=== PATIENT | male | born 1940 | race Two or more races ===

== ENCOUNTER 2019-08-22 00:03 | Inpatient (IN) | payer MEDICARE, OTHER ==
[~2019-08-22] VITALS: Ht 172.7 cm; Wt 76.2 kg
[2019-08-22] VITALS (17 sets, daily range): BP systolic 115–153; BP diastolic 53–71
--- NOTE | 2019-08-22 00:03 | NUR ---
PT ROOSEVELTPA FROM [facility] DUE TO HGB 5.7. PT OPENS EYES SPONTANEOUSLY, NONVERBAL. ARRIVED TO [facility] ER WITH TWO IV SITES: L HAND 22G AND R AC 22G. VENT/TRACH DEPENDENT. VENT SETTINGS: TIDAL VOLUME 600, PEEP 5, 40%, RATE 16. NOTED TACHYCARDIA, MD AWARE. PT PLACED ON CONTINUOUS ASSOCIATE DATA SCIENTIST, WILL CONTINUE TO MONITOR.
--- NOTE | 2019-08-22 00:25 | NUR ---
IV INITIATED L FOREARM 18G, LABS DRAWN FROM SITE. APPLICATION SECURITY DEVELOPER AT BEDSIDE FOR COLLECTION. IV INTACT AND PATENT, PLACED ON SALINE LOCK
[2019-08-22 00:41] LABS: BASOPHILS # (AUTO) 0.1 /CMM (0.0-0.2); BASOPHILS % (AUTO) 0.5 % (0.0-2.0); EOSINOPHILS % (AUTO) 3.9 % (0.0-6.0); HEMATOCRIT 21 % (39-51); LYMPHOCYTES # (AUTO) 3.4 /CMM (0.8-4.8); LYMPHOCYTES % (AUTO) 19.9 % (20.0-44.0); MEAN CORPUSCULAR HGB CONC 32 g/dl (31.0-36.0); MEAN CORPUSCULAR VOLUME 86 fL (80-96); MONOCYTES # (AUTO) 1.2 /CMM (0.1-1.30); MONOCYTES % (AUTO) 7.1 % (2.0-12.0); NEUTROPHILS # (AUTO) 11.6 /CMM (1.8-8.9); NEUTROPHILS % (AUTO) 68.6 % (43.0-81.0); PLATELET COUNT (AUTO) 773 /CMM (150-450); RED BLOOD CELL COUNT(AUTO) 2.41 MIL/uL (4.5-6.0); WHITE BLOOD COUNT (AUTO) 16.8 K/uL (4.3-11.0)
[2019-08-22 00:45] LABS: HEMOGLOBIN 6.6 g/dL (13.5-17.5)
[2019-08-22 00:57] LABS: ALANINE AMINOTRANSFERASE 11 U/L (12-78); ALKALINE PHOSPHATASE 162 U/L (46-116); ASPARTATE AMINOTRANSFERASE 24 U/L (15-37); BILIRUBIN,DIRECT 0.1 mg/dL (0.0-0.2); BILIRUBIN,TOTAL 0.2 mg/dL (0.2-1.0); CALCIUM, SERUM 8.4 mg/dL (8.5-10.1); CARBON DIOXIDE 25 mmol/L (21-32); CHLORIDE 108 mmol/L (98-107); CREATININE 0.5 mg/dL (0.6-1.3); SODIUM SERUM 140 mmol/L (136-145); TOTAL PROTEIN, SERUM 6.7 g/dL (6.4-8.2); UREA NITROGEN, BLOOD 21 mg/dL (7-18)
[2019-08-22 00:59] LABS: ALBUMIN 1.3 g/dL (3.4-5.0); GLUCOSE 46 mg/dL (74-106)
[2019-08-22] MEDS ORDERED: DEXTROSE 50%-WATER 50 ML DISP.SYRIN ONE ×2 (00:59→06:20)
[2019-08-22] MEDS ORDERED: DEXTROSE 50%-WATER 50 ML DISP.SYRIN IVP ONE ×2 (01:00→06:30)
--- NOTE | 2019-08-22 01:13 | NUR ---
URINE COLLECTED AND SENT TO LAB
--- NOTE | 2019-08-22 01:21 | NUR ---
BED ASSIGNMENT 107
[2019-08-22 01:22] LABS: APPEARANCE,URINE Clear (CLEAR); BILIRUBIN,URINE Negative (NEGATIVE); BLOOD, URINE Moderate Ery/uL (NEGATIVE); COLOR,URINE Yellow (YELLOW); KETONES,URINE Negative (NEGATIVE); LEUKOCYTE ESTERASE ,URINE Negative (NEGATIVE); NITRITE, URINE Negative (NEGATIVE); PH,URINE 7.5 (5.0-8.0); PROTEIN,URINE 30 mg/dl (NEGATIVE); UGLUCOSE Negative (NEGATIVE); UROBILINOGEN,URINE 0.2 EU/dL (0.2)
[2019-08-22] MEDS ORDERED: FAMO-131 GT (01:26)
[2019-08-22] MEDS ORDERED: DOCU-141 GT (01:26)
[2019-08-22] MEDS ORDERED: INSU100V10 SQ (01:26)
[2019-08-22] MEDS ORDERED: BISA-79 GT (01:26)
[2019-08-22] MEDS ORDERED: ATOR80TA GT (01:26)
[2019-08-22] MEDS ORDERED: AMLO10TA7 GT (01:26)
[2019-08-22] MEDS ORDERED: CLON0.1T GT (01:26)
[2019-08-22] MEDS ORDERED: INSU100V11 SQ (01:26)
[2019-08-22] MEDS ORDERED: MAGN400O21 GT (01:26)
[2019-08-22] MEDS ORDERED: IPRA12.9 IH (01:26)
[2019-08-22 01:28] LABS: EOSINOPHILS % (MANUAL) 5 % (0-4); LYMPHOCYTES % (MANUAL) 15 % (16-48); MONOCYTES % (MANUAL) 5 % (0-11.0); NEUTROPHILS % (MANUAL) 75 (42-76)
[2019-08-22] MEDS ORDERED: ONDANSETRON HCL/PF 4 MG/2 ML VIAL IVP PRN (01:30)
[2019-08-22] MEDS ORDERED: TEMAZEPAM 15 MG CAPSULE PO PRN (01:30)
--- NOTE | 2019-08-22 01:32 | NUR ---
REPORT GIVEN TO [facility] FOR LEONCIO
--- NOTE | 2019-08-22 02:00 | NUR ---
ASSOCIATE JUVENILE COURT JUDGE ADMISSION NOTES ADMITTED MR RITCHIE FROM ER WITH CHIEF COMPLAINT OF LOW HGB, DX OF SEVERE ANEMIA POSSIBLE BLEED, PATIENT CAME FROM [facility], PT IS OBTUNDED AWAKE, PT IS ON TRACH PORTEX ON VENT WITH CURRENT SETTING OF AC 16 TV 600 FIO2 40% PEEP +5, HOOK TO TELE MONITOR WITH CURRENT READING SR 100, PT ALSO WITH GTUBE IN PLACE PATENT, HAVE IV LINE ON LEFT HAND #18 AND MALATHI # 22, PT ALSO HAVE LOZADA PATENT YELLOW COLOR URINE, PT HAVE MULTIPLE UNSTAGEABLE WOUND ISSUE, TO BE EVALUATE BY WOUND CARE NURSE, VITAL SIGN CHECK, 115/64 98.4, 108HR, 22 RR, O2 SAT 100% BLOOD SUGAR 72, WITH ORDER FOR 2 UNITS PRBC, PLACED COMFORTABLE AND SAFELY ON BED, DRY AND CLEAN, SIDERAILS UP X3 CALL LIGHTR WITHIN REACH SUCTIONING DONE, WILL CONT. TO MONITOR
--- NOTE | 2019-08-22 02:00 | NUR ---
PT TRANSFERRED PER ACLS PROTOCOL WITH RT AT BEDSIDE
[2019-08-22 02:14] LABS: BACTERIA,URINE Few /HPF (None Seen); RBC,URINE 51-80 /HPF (0-2); SQUAMOUS EPITHELIAL CELL,UR Rare /HPF (None Seen); WBC,URINE 0-2 /HPF (0-3)
[2019-08-22] MEDS: IV D5/ 0.9% NACL 1,000 ML IV PRN (02:48)
[2019-08-22] MEDS ORDERED: CEFTRIAXONE 1 G VIAL ONE (04:24)
[2019-08-22] MEDS ORDERED: AZITHROMYCIN 500 MG in IV D5W 250 ML IV SCH (04:30)
[2019-08-22] MEDS ORDERED: CEFTRIAXONE 1GM BAG (ER ONLY) 1 GM/50 ML PIGGYBACK IV ONE (04:30)
--- NOTE | 2019-08-22 04:30 | NUR ---
UNDER BASTER NOTES ROCEPHIN ORDER CANNOT START DUE TO PATIENT HAS AN ONGOING BLOOD TRANSFUSION
[2019-08-22] MEDS: BLOOD SUGAR DIAGNOSTIC 1 EACH STRIP IN SCH ×3 (06:16→18:19)
--- NOTE | 2019-08-22 06:38 | NUR ---
ELEMENTARY MATH TUTOR NOTES NOTED BLOOD SUGAR OF 51, AZUCENA HERNANDEZ COFFEE SHOP MANAGER INFORMED WITH ORDER FOR D50 INJ, GIVEN THIS TIME WILL CONT TO MONITOR PT
--- NOTE | 2019-08-22 07:00 | NUR ---
SOLAR MANAGER NOTES BLOOD SUGAR RECHECKED WITH RESULT OF 88 WILL CONT TO MONITOR THE PT
--- NOTE | 2019-08-22 07:31 | NUR ---
CABINET AND TRIM INSTALLER CLOSING NOTES PT SLEEPING NO SIGN AND SYMPTOMS OF RESPIRATORY DISTRESS, STILL ON VENT WITH SETTING PER MD, TELE MONITOR CURRENT READING SINUS TACH 110, WITH IVF OF D5 NS RUNNING @ 75ML/ HR, 1ST BAG OF PRBC COMPLETED, ROCEPHIN WAS INFUSED, SAFETY MEASURE MAINTAINED BED ON LOWEST POSITION, CALL LIGHT WITHIN REACH, SIDE RAILS UP X3, ALL NEED ATTENDED, ENDORSE TO AM SHIFT ABOUT THE AZITHROMYCIN NOT GIVEN YET DUE TO BLOOD TRANSFUSION STILL ONGOING THAT TIME, 2ND BAG OF PRBC ENDORSE TO BE TRANSFUSED BY AM SHIFT
[2019-08-22] MEDS ORDERED: IPRA0.2S9 IH ×2 (09:16)
[2019-08-22] MEDS ORDERED: TRAM50TA2 GT (09:16)
[2019-08-22] MEDS ORDERED: EPOE3000 SQ (09:16)
[2019-08-22] MEDS ORDERED: ACET-2605 GT (09:16)
[2019-08-22] MEDS ORDERED: NUT.250L18 GT (09:16)
[2019-08-22] MEDS ORDERED: CHLO473M5 MM (09:16)
[2019-08-22] MEDS ORDERED: PIPE3.376 IV (09:16)
[2019-08-22] MEDS ORDERED: NA P133E RC (09:16)
[2019-08-22] MEDS ORDERED: FERR300L GT (09:16)
[2019-08-22] MEDS ORDERED: ACET-868 GT (09:16)
[2019-08-22] MEDS ORDERED: ASCO-352 GT (09:16)
[2019-08-22] MEDS ORDERED: MULT-447 GT (09:16)
[2019-08-22] MEDS ORDERED: AMIN30LI2 GT (09:16)
[2019-08-22] MEDS ORDERED: NUTR1PAC14 GT (09:16)
[2019-08-22] MEDS ORDERED: ONDA4TAB5 GT (09:16)
[2019-08-22] MEDS ORDERED: BISA10SU11 RC (09:16)
[2019-08-22] MEDS: PANTOPRAZOLE 40 MG VIAL IV SCH ×2 (09:20→21:02)
--- NOTE | 2019-08-22 12:05 | NUR ---
PRODUCT SUPPORT CONSULTANT NOTES PATIENT TOLERATED BLOOD TRANSFUSION WITH NO FEVER AND VITALS WNL.
--- NOTE | 2019-08-22 12:58 | NUR ---
REAL ESTATE FIRM MANAGER NOTES ZITHROMAX NOT ADMINISTRATED BY PREVIOUS SHIFT DUE TO BLOOD TRANSFUSION. CALLED PHARMACY AND REPORTED AND PHARMACY INFORMED THAT THE DR HAS TO PUT THE ORDER IN. INFORMED DR STODDARD.
--- NOTE | 2019-08-22 16:10 | NUR ---
DARK ROOM ATTENDANT NOTES CALLED [facility] FOR [facility] FOLLOW UP, THEY WILL SEND THE BED.
--- NOTE | 2019-08-22 18:22 | NUR ---
FURNACE TAPPER NOTES PATIENT ACUCHECK PERFORMED. BLOOD GLUCOSE LEVEL 148 MG/DL NO SLIDING SCALE OR INSULIN ORDER YET, INFORMED DR LEIJA ABOUT THE MED RECON AND SLIDING SCALE ORDERS.
--- NOTE | 2019-08-22 18:27 | NUR ---
MEAT SUPERVISOR NOTES PER MD STODDARD , ORDERED MILD SLIDING SCALE FOR PATIENT. NO MEDICATION NEEDED UNTIL GI SPECIALIST SEES THE PATIENT.
[2019-08-22] MEDS ORDERED: DEXTROSE 50%-WATER 50 ML DISP.SYRIN IV PRN (18:30)
--- NOTE | 2019-08-22 19:10 | NUR ---
HOME CARE PHYSICAL THERAPIST NOTES PATIENT IN BED A/OX 1 . NPO ON WOUND ISOLATION. NO SOB OR PAIN NOTED AT THIS TIME. ALL NEED ATTENDED. ENDORCED TO COMMERCIAL SINGER NURSE FOR LEONCIO.
--- NOTE | 2019-08-22 19:30 | NUR ---
RN Notes Patient asleep, HOB elevated, on mechanical vent with settings in place, no signs of distress and discomfort noted. Patient noted contracted on both upper and lower extremity. GT intact and clamped. Right upper arm midline intact. Peripheral IV on left arm intact with ongoing IV fluid infusing well. Wound dressing dry and intact, turn and reposition patient. On contact isolation. Will continue to monitor.
[2019-08-23] VITALS: BP 156/71
[2019-08-23] MEDS: INSULIN REGULAR, HUMAN 100 UNIT/ML 3 ML VIAL SQ PRN ×4 (00:02→17:26)
[2019-08-23] MEDS: IV D5/ 0.9% NACL 1,000 ML IV PRN ×2 (02:26→19:54)
[2019-08-23 04:00] VITALS: BP 161/68
[2019-08-23] MEDS: BLOOD SUGAR DIAGNOSTIC 1 EACH STRIP IN SCH ×4 (05:54→17:29)
[2019-08-23 06:21] LABS: BASOPHILS # (AUTO) 0.1 /CMM (0.0-0.2); BASOPHILS % (AUTO) 0.4 % (0.0-2.0); HEMATOCRIT 30 % (39-51); HEMOGLOBIN 10.1 g/dL (13.5-17.5); LYMPHOCYTES # (AUTO) 1.7 /CMM (0.8-4.8); LYMPHOCYTES % (AUTO) 11.4 % (20.0-44.0); MEAN CORPUSCULAR HGB CONC 33 g/dl (31.0-36.0); MEAN CORPUSCULAR VOLUME 87 fL (80-96); MONOCYTES % (AUTO) 6.6 % (2.0-12.0); NEUTROPHILS # (AUTO) 11.7 /CMM (1.8-8.9); NEUTROPHILS % (AUTO) 80.6 % (43.0-81.0); PLATELET COUNT (AUTO) 613 /CMM (150-450); RED BLOOD CELL COUNT(AUTO) 3.48 MIL/uL (4.5-6.0); WHITE BLOOD COUNT (AUTO) 14.5 K/uL (4.3-11.0)
[2019-08-23 06:49] LABS: CALCIUM, SERUM 8.5 mg/dL (8.5-10.1); CARBON DIOXIDE 22 mmol/L (21-32); CHLORIDE 108 mmol/L (98-107); CREATININE 0.5 mg/dL (0.6-1.3); GLUCOSE 166 mg/dL (74-106); MAGNESIUM 1.9 mg/dL (1.8-2.4); PHOSPHORUS 2.3 mg/dL (2.5-4.9); POTASSIUM 4.2 mmol/L (3.5-5.1); SODIUM SERUM 141 mmol/L (136-145); UREA NITROGEN, BLOOD 13 mg/dL (7-18)
[2019-08-23 06:55] LABS: CHOLESTEROL 80 mg/dL (<200); HDL CHOLESTEROL 40 mg/dL (40-60); LDL 35 mg/dL (0-99); TRIGLYCERIDES 54 mg/dL (30-150)
--- NOTE | 2019-08-23 07:25 | NUR ---
TELE/RN OPENING NOTES RECEIVED PATIENT IN BED SLEEPING COMFORTABLY. PATIENT ABLE TO RESPOND TO TACTILE STIMULI. NO FACIAL GRIMACING. NO ACUTE DISTRESS AT THIS TIME. RESPIRATION EVEN AND UNLABORED. SKIN IS DRY WARM TO TOUCH. IV ACCESS INTACT AND PATENT. FLUSHING WELL. NO S/S OF INFECTION OR INFILTRATION. HOB ELEVATED AT ALL TIMES. ALL NEEDS ANTICIPATED. CALL LIGHT WITHIN REACHED. BED LOCKED AND IN LOWEST POSITION. SAFETY MAINTAINED. REPOSITIONED Q2H. WILL CONTINUE TO MONITOR CLOSELY.
--- NOTE | 2019-08-23 07:32 | NUR ---
RN Notes Patient stable overnight, vital signs stable, afebrile. Tele monitor reads Sinus Tach with heart rate of 109. Wound care done. Kept clean and dry. Turned and repositioned per protocol. Endorsed accordingly.
[2019-08-23 08:00] VITALS: BP 152/70
[2019-08-23] MEDS: PANTOPRAZOLE 40 MG VIAL IV SCH ×2 (08:20→21:26)
--- NOTE | 2019-08-23 11:27 | NUR ---
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 RECOMMEND SURGICAL CONSULT AND DPM CONSULT. DR LIZZ LIM NOTIFIED OF SURGICAL CONSULT AND DR DAMON NOTIFIED OF DPM CONSULT REQUEST. PT ON FIRST STEP [facility] LOW AIRLOSS MATTRESS. RECOMMENDATIONS MADE FOR SKIN PROTECTION AND WOUND CARE. DISCUSSED WITH NURSING STAFF. DEFER TO DPM FOR LOWER EXTREMITIES. WILL SEE PRN. HERNANDEZ IN AGREEMENT WITH PLAN OF CARE. Addendum: 08/23/19 at 1129 by LEONIDES SALDIVAR WNDNU Amended: Links added.
[2019-08-23] MEDS ORDERED: Z GUARD REMEDY 2 OZ OINT TP PRN (11:30)
[2019-08-23 12:00] VITALS: BP 149/69
[2019-08-23] MEDS: DAKINS QUARTER STRENGTH (0.125%) 480 ML BOTTLE TOP SCH (12:28)
[2019-08-23] MEDS: Z GUARD REMEDY 2 OZ OINT TP SCH (12:28)
--- NOTE | 2019-08-23 13:44 | NUR ---
TELE/RN NOTES PATIENT WAS SEEN AND EVALUATED BY SAWYER CORK SLABS. SERIAL DEBRIDEMENT WAS DONE ON BILATERAL HEELS. PATIENT TOLERATED THE PROCEDURE WELL. WILL CONTINUE TO MONITOR CLOSELY.
[2019-08-23 16:00] VITALS: BP 132/73
--- NOTE | 2019-08-23 18:44 | NUR ---
TELE/RN NOTES RECEIVED A CALL FROM DR. TUTTLE FOR THE EGD PROCEDURE FOR TOMORROW NOON. PATIENT TO BE NPO @ MIDNIGHT. CONSENTS ARE PREPARED IN THE CHART. WILL CONTINUE TO MONITOR CLOSELY.
--- NOTE | 2019-08-23 19:22 | NUR ---
TELE/RN NOTES PATIENT CONTINUES TO REMAIN IN STABLE CONDITION THROUGHOUT THE SHIFT. PROVIDED COMFORT AND SAFETY. NO PAIN OR ACUTE DISTRESS AT THIS TIME. RESPIRATION EVEN AND UNLABORED. SKIN IS DRY WARM TO TOUCH. HOB ELEVATED AT ALL TIMES. WOUND TREATMENT DONE. ENDORSED TO PM NURSE ABOUT THE EGD PROCEDURE TOMORROW NOON. NPO AT MIDNIGHT. ALL NEEDS ANTICIPATED. CALL LIGHT WITHIN REACHED. BED LOCKED AND IN LOWEST POSITION. SAFETY MAINTAINED. WILL CONTINUE TO MONITOR CLOSELY. ENDORSED TO PM NURSE FOR LEONCIO.
[2019-08-23 20:00] VITALS: BP 163/67
[2019-08-24] VITALS: BP 182/73
[2019-08-24] MEDS: INSULIN REGULAR, HUMAN 100 UNIT/ML 3 ML VIAL SQ PRN ×4 (01:52→23:09)
[2019-08-24 04:00] VITALS: BP 158/69
[2019-08-24] MEDS: BLOOD SUGAR DIAGNOSTIC 1 EACH STRIP IN SCH ×4 (06:02→17:39)
--- NOTE | 2019-08-24 06:02 | NUR ---
RN NOTES: -PATIENT WAS TURN OVER BY GIANCARLO/RN AT 0500.OBSTUNDED, ON TRAVEL COTA ON ST WITH OCCASIONAL PVC PVJD=561, SPO2 REMAIN 99%, TRACH INTACT, ON VENTILATOR FI02 40%, LOZADA CATH DRAINING WELL INTO DARK YELLOWISHCOLORED URINE, ADEQUATE OUTPUT, IVF ONGOIN OF D5NS AT 75ML/HR MALATHI MIDLINE, PATENT, KEPT NPO FOR EGD AT NOON TIME. -MORNING CARE DONE, SPONGE BATH RENDERED, CLEAN AND CHANGE, DRESSING DONE ON SACRAL AND BUTTOCKS WOUND, OFF LOADING DONE, TURN AND REPOSITIONED.
--- NOTE | 2019-08-24 06:15 | NUR ---
RN NOTES: BLOOD SUGRA CHECK-103, NO INSULIN PER SCALE WILL CONTINUE TO MONITOR FOR SIGN OF HYPER/HYPOGLYCEMIA.
[2019-08-24 06:55] LABS: BASOPHILS % (AUTO) 0.3 % (0.0-2.0); EOSINOPHILS % (AUTO) 1.7 % (0.0-6.0); HEMATOCRIT 28 % (39-51); HEMOGLOBIN 9.1 g/dL (13.5-17.5); LYMPHOCYTES # (AUTO) 1.6 /CMM (0.8-4.8); LYMPHOCYTES % (AUTO) 12.9 % (20.0-44.0); MEAN CORPUSCULAR HGB CONC 32 g/dl (31.0-36.0); MEAN CORPUSCULAR VOLUME 89 fL (80-96); MONOCYTES # (AUTO) 0.8 /CMM (0.1-1.30); MONOCYTES % (AUTO) 6.5 % (2.0-12.0); NEUTROPHILS # (AUTO) 9.7 /CMM (1.8-8.9); NEUTROPHILS % (AUTO) 78.6 % (43.0-81.0); PLATELET COUNT (AUTO) 559 /CMM (150-450); RED BLOOD CELL COUNT(AUTO) 3.15 MIL/uL (4.5-6.0); WHITE BLOOD COUNT (AUTO) 12.3 K/uL (4.3-11.0)
[2019-08-24 07:12] LABS: CALCIUM, SERUM 8.1 mg/dL (8.5-10.1); CARBON DIOXIDE 24 mmol/L (21-32); CHLORIDE 112 mmol/L (98-107); CREATININE 0.3 mg/dL (0.6-1.3); GLUCOSE 118 mg/dL (74-106); POTASSIUM 3.6 mmol/L (3.5-5.1); SODIUM SERUM 144 mmol/L (136-145); UREA NITROGEN, BLOOD 8 mg/dL (7-18)
--- NOTE | 2019-08-24 07:18 | NUR ---
RN NOTES: NPO, FALL,SAFETY AND ASPIRATION PRECAUTION OBSERVED, NO SIGN OF RESPIRATORY DISTRESS NOTED, ENDORSED FOR CONTINUITY OF CARE.
--- NOTE | 2019-08-24 07:30 | NUR ---
TELE/RN NOTES OPENING NOTES RECEIVED PATIENT IN BED SLEEPING COMFORTABLY. PATIENT ABLE TO RESPOND TO TACTILE STIMULI. NO PAIN OR ACUTE DISTRESS AT THIS TIME. RESPIRATION EVEN AND UNLABORED. SKIN IS DRY WARM TO TOUCH. HOB ELEVATED AT ALL TIMES. IV ACCESS INTACT AND PATENT. FLUSHING WELL. F/C INTACT WELL DRAINING YELLOW URINE. ALL NEEDS ANTICIPATED. CALL LIGHT WITHIN REACHED. BED LOCKED AND IN LOWEST POSITION. SAFETY MAINTAINED. WILL CONTINUE TO MONITOR CLOSELY.
[2019-08-24 08:00] VITALS: BP 148/69
[2019-08-24] MEDS: DAKINS QUARTER STRENGTH (0.125%) 480 ML BOTTLE TOP SCH (08:38)
[2019-08-24] MEDS: Z GUARD REMEDY 2 OZ OINT TP SCH (08:38)
[2019-08-24] MEDS: SILVER SULFADIAZINE CREAM 25 GM TUBE TP SCH (08:38)
[2019-08-24] MEDS: PANTOPRAZOLE 40 MG VIAL IV SCH ×2 (08:39→20:16)
[2019-08-24] MEDS: IV D5/ 0.9% NACL 1,000 ML IV PRN ×2 (08:50→21:26)
[2019-08-24] MEDS ORDERED: SILVER SULFADIAZINE CREAM 400 GM JAR TP SCH (09:00)
[2019-08-24 12:00] VITALS: BP 140/61
[2019-08-24 16:00] VITALS: BP_SYST 138; BP_SYST 140; BP_DIAS 61; BP_DIAS 65
--- NOTE | 2019-08-24 17:46 | NUR ---
RT END OF THE SHIFT REPORT, PT. 79 Y OLD MALE REC. 0700 AM AWAKE, BUT NOT VERBAL TRACH'D PORTEX # 7 ON VENT WITH NOTES SETTINGS, ALARMS ARE SET AND FUNCTIONAL. EQUAL CHEST RISE NOTED AND BILATERALLY RHONCHI B/S AND SUX'D FOR SMALL AMT OF WHITE SECRETIONS, NO CHANGES T/O DAY AND PT. REMAIN STABLE. DENTAL OFFICE RECEPTIONIST DONE, TRACH CARE DONE, HME CHANGED. VENT PLUGGED INTO RED OUT LET & AMBU BAG AT THE BEDSIDE. REPORT WILL PASS TO PM SHIFT. Addendum: 08/24/19 at 1758 by DIANE THOMPSON RT Amended: Links added.
--- NOTE | 2019-08-24 19:10 | NUR ---
RN OPENING NOTE RECEIVED PATIENT IN BED RESTING WITH HOB ELEVATED. OBTUNDED. ON VENT. BREATHING EVEN AND NON LABORED. NO SOB NOTED AT THIS TIME. ON D5 NS IV @ 75 MLS/HR. GTF CLAMPED. ON LOZADA CATHETER. URINE IS CLEAR AND JEFFRY IN COLOR. IN NO APPARENT DISTRESS NOTED AT THIS TIME. WILL CONTINUE TO MONITOR.
--- NOTE | 2019-08-24 19:27 | NUR ---
TELE/RN CLOSING NOTES PATIENT CONTINUES TO REMAIN IN STABLE CONDITION THROUGHOUT THE SHIFT. PROVIDED COMFORT AND SAFETY THROUGHOUT THE SHIFT. HOB ELEVATED AT ALL TIMES. IV ACCESS INTACT AND PATENT. FLUSHING WELL. F/C INTACT WELL DRAINING YELLOW URINE. ALL NEEDS ANTICIPATED. CALL LIGHT WITHIN REACHED. BED LOCKED AND IN LOWEST POSITION. SAFETY MAINTAINED. WILL CONTINUE TO MONITOR CLOSELY. ENDORSED TO PM NURSE FOR LEONCIO.
[2019-08-24 20:00] VITALS: BP 137/72
[2019-08-25] VITALS: BP 145/73
[2019-08-25] MEDS: BLOOD SUGAR DIAGNOSTIC 1 EACH STRIP IN SCH ×5 (00:49→23:53)
[2019-08-25 04:00] VITALS: BP 166/74
[2019-08-25] MEDS: INSULIN REGULAR, HUMAN 100 UNIT/ML 3 ML VIAL SQ PRN ×4 (05:51→23:51)
[2019-08-25 06:22] LABS: BASOPHILS % (AUTO) 0.3 % (0.0-2.0); EOSINOPHILS % (AUTO) 0.9 % (0.0-6.0); HEMATOCRIT 27 % (39-51); HEMOGLOBIN 8.7 g/dL (13.5-17.5); LYMPHOCYTES # (AUTO) 1.7 /CMM (0.8-4.8); MEAN CORPUSCULAR HGB CONC 33 g/dl (31.0-36.0); MEAN CORPUSCULAR VOLUME 87 fL (80-96); MONOCYTES # (AUTO) 0.8 /CMM (0.1-1.30); MONOCYTES % (AUTO) 5.9 % (2.0-12.0); NEUTROPHILS # (AUTO) 11.6 /CMM (1.8-8.9); NEUTROPHILS % (AUTO) 80.9 % (43.0-81.0); PLATELET COUNT (AUTO) 550 /CMM (150-450); RED BLOOD CELL COUNT(AUTO) 3.07 MIL/uL (4.5-6.0); WHITE BLOOD COUNT (AUTO) 14.3 K/uL (4.3-11.0)
[2019-08-25 06:33] LABS: CALCIUM, SERUM 7.7 mg/dL (8.5-10.1); CARBON DIOXIDE 22 mmol/L (21-32); CHLORIDE 112 mmol/L (98-107); CREATININE 0.3 mg/dL (0.6-1.3); GLUCOSE 163 mg/dL (74-106); MAGNESIUM 1.4 mg/dL (1.8-2.4); PHOSPHORUS 1.9 mg/dL (2.5-4.9); POTASSIUM 3.1 mmol/L (3.5-5.1); SODIUM SERUM 146 mmol/L (136-145); UREA NITROGEN, BLOOD 7 mg/dL (7-18)
--- NOTE | 2019-08-25 06:44 | NUR ---
RN CLOSING NOTE PATIENT IS IN BED RESTING WITH HOB ELEVATED. OBTUNDED. ON VENT. BREATHING EVEN AND NON LABORED. NO SOB NOTED AT THIS TIME. ON D5 NS @ 75 MLS/HR AND TOLERATED WELL. IV SITES KEPT CLEAN, DRY, AND PATENT. PATIENT WAS KEPT NPO. GTF CLAMPED. WOUND TREATMENTS DONE ORDERED. ALL DUE MEDS GIVEN AND TOLERATED WELL. IN NO APPARENT DISTRESS NOTED AT THIS TIME. BED IS LOWERED TO LOW POSITION FOR SAFETY. PATIENT IS KEPT CLEAN, DRY, AND COMFORTABLE. CALL LIGHT IS WITHIN REACH. WILL ENDORSE TO AM SHIFT RN FOR CONTINUATION OF CARE.
--- NOTE | 2019-08-25 07:30 | NUR ---
MONITORING TECH AM NOTES RECEIVED PATIENT IN BED. OPENS EYES, OBTUNDED. WITH PORTEX 7 TRACH TO MECHANICAL VENT WITH SETTINGS ORDERED, TOLERATING WELL. NO SOB AND ACUTE DISTRESS NOTED. SATURATING 98%. SINUS TACH HR 105. NO SIGNS OF PAIN OR DISCOMFORT, WITH D5 NS AT 75 ML/HR TO MALATHI MIDLINE, SITE CLEAR, ALSO WITH LFA G 18 AND LEFT WRIST G 22 IV ACCESS. BOTH FLUSHES WELL, BOTH SITES CLEAR. LOZADA CATH IN PLACE.DRAINING JEFFRY COLORED URINE, GTUBE CLAMPED AT THIS TIME. FOR SCHEDULED EGD TODAY. SEE NURSING FLOWSHEET FOR SKIN ISSUES. WILL PERFORM PRESCRIBED WOUND TREATMENT IN A WHILE. WILL TURN AND REPOSITION Q [address]ETY ME[address]URES IN PLACE; BED IS IN LOCKED AND LOW POSITION, HOB ELEVATED. CALL LIGHT WITHIN REACH, SIDE RAILS UP X2.WILL CONT TO MONITOR PT.
[2019-08-25 08:00] VITALS: BP 116/55
[2019-08-25] MEDS: PANTOPRAZOLE 40 MG VIAL IV SCH ×2 (08:58→21:24)
[2019-08-25] MEDS: Z GUARD REMEDY 2 OZ OINT TP SCH (08:58)
[2019-08-25] MEDS: DAKINS QUARTER STRENGTH (0.125%) 480 ML BOTTLE TOP SCH (09:01)
[2019-08-25] MEDS: SILVER SULFADIAZINE CREAM 25 GM TUBE TP SCH (09:02)
--- NOTE | 2019-08-25 09:30 | NUR ---
RN NOTES DUE MEDS GIVEN
[2019-08-25] MEDS: POTASSIUM CL. PREMIX PERIPHER. 50 ML IV SCH ×4 (10:11→13:51)
[2019-08-25] MEDS: Magnesium 1GM/D5W 100ML PREMIX 100 ML IV SCH ×4 (10:11→13:51)
[2019-08-25] MEDS: IV D5/ 0.9% NACL 1,000 ML IV PRN (10:17)
--- NOTE | 2019-08-25 10:32 | NUR ---
TRANSPLANT REGISTERED NURSE NOTES DR. TUTTLE AND OR STAFF AT BEDSIDE FOR SCHEDULED EGD
[2019-08-25] MEDS ORDERED: NEUTRA PHOS 1 POWD.PACKET PO ONE (11:00)
--- NOTE | 2019-08-25 11:12 | NUR ---
RN NOTES S/P EGD WITH BIOPSY ORDER TO RESUME TUBE FEEDING PER DR. TUTTLE.
[2019-08-25 12:00] VITALS: BP 133/93
[2019-08-25] MEDS: GLUCERNA 1.2 1,000 ML BOTTLE GT PRN (12:39)
--- NOTE | 2019-08-25 14:15 | NUR ---
RN NOTES DR. LIZZ ALEX NOTIFIED PATIENT WITH FEVER 101.5 IF STILL OK FOR DISCHARGE, PER HIM ITS OKAY DR. BILLS AT BEDSIDE, STAT CXR ORDERED. PM CARE DONE AND PHOTOS OF SKIN ISSUES TAKEN. PRESCRIBED WOUND TREATMENT DONE. PATIENT GIVEN ACETAMINOPHEN RECTAL SUPPOSITORY.
[2019-08-25] MEDS: ACETAMINOPHEN 650 MG/SUPP.RECT RC PRN (15:14)
[2019-08-25 16:00] VITALS: BP 151/70
[2019-08-25] MEDS ORDERED: MEROPENEM 500 MG in IV NS 0.9% 50 ML IV ONE (18:00)
[2019-08-25] MEDS ORDERED: FEE PK DOSING 1 MIN EA MC ONE (18:02)
--- NOTE | 2019-08-25 18:06 | NUR ---
RT END OF THE SHIFT REPORT, PT. 79 Y OLD MALE REC. 0700 AM AWAKE, BUT NOT VERBAL TRACH PORTEX # 7 ON VENT WITH NOTES SETTINGS, ALARMS ARE SET AND FUNCTIONAL. EQUAL CHEST RISE NOTED AND BILATERALLY RHONCHI B/S AND SUX'D FOR SMALL AMT OF WHITE SECRETIONS, NO CHANGES T/O DAY AND PT. REMAIN STABLE. EXTRA TRACH AT THE BEDSIDE. EDUCATIONAL DIAGNOSTICIAN DONE, TRACH CARE DONE, HME CHANGED. VENT PLUGGED INTO RED OUT LET & AMBU BAG AT THE BEDSIDE. REPORT WILL PASS TO PM SHIFT. Addendum: 08/25/19 at 1808 by DIANE THOMPSON RT Amended: Links added.
[2019-08-25] MEDS: VANCOMYCIN 1 GM in IV D5W 250ml IV SCH (18:17)
--- NOTE | 2019-08-25 18:37 | NUR ---
ELECTRIC MOTOR TESTER CLOSING NOTES PATIENT IN BED. OPENS EYES, OBTUNDED. WITH PORTEX 7 TRACH TO MECHANICAL VENT WITH SETTINGS ORDERED, TOLERATING WELL. NO SOB AND ACUTE DISTRESS NOTED. SATURATING 98-100%. SINUS TACH HR 100s. NO SIGNS OF PAIN OR DISCOMFORT, WITH D5 NS AT 75 ML/HR TO MALATHI MIDLINE, SITE CLEAR, ALSO WITH LFA G 18 AND LEFT WRIST G 22 IV ACCESS. BOTH FLUSHES WELL, BOTH SITES CLEAR. LOZADA CATH IN PLACE.DRAINING JEFFRY COLORED URINE 250 ML OUTPUT, GTF ONGOING WITH GLUCERNA 1.2 AT 40 ML/HR GOAL IS 70 ML/HR. O RESIDUAL. CHECKED FOR PLACEMENT. PM CARE AND PRESCRIBED WOUND TREATMENT DONE. TURNED AND REPOSITIONED Q [address] SAFETY MEASURES IN PLACE; BED IS IN LOCKED AND LOW POSITION, HOB ELEVATED. CALL LIGHT WITHIN REACH, SIDE RAILS UP X2.ALL NEEDS MET AT THIS TIME. WILL ENDORSE TO NEXT SHIFT FOR LEONCIO. PATIENT SUPPOSED TO BE FOR DISCHARGE, DR. SANJU ALLEN AT BEDSIDE, ORDERED STAT CXR WITH RESULT WORSENING PATCHY INFILTRATES AND PATIENT WITH FEVER. GAVE TYLENOL SUPPOSITORY EARLIER, TEMP WENT DOWN FROM 101.5 TO 99.3, DR. ZAMUDIO NOTIFIED, DISCHARGE ORDERS HOLD BY DR. SEVILLA. CONSULT DONE AND SEEN BY INFECTIOUS DISEASE NERA, WITH NEW ORDER OF MERREM AND VANCO IV.
--- NOTE | 2019-08-25 19:28 | NUR ---
CLAIMS SORTER NOTES RECEIVED PATIENT IN BED. OPENS EYES, OBTUNDED. WITH PORTEX 7 TRACH TO MECHANICAL VENT WITH SETTINGS ORDERED, TOLERATING WELL. NO SOB AND ACUTE DISTRESS NOTED. SATURATING 98%. SR 80'S. NO SIGNS OF PAIN OR DISCOMFORT, WITH D5 NS AT 75 ML/HR TO MALATHI MIDLINE, SITE CLEAR, ALSO WITH LFA G 18 AND LEFT WRIST G 22 IV ACCESS. BOTH FLUSHES WELL, BOTH SITES CLEAR. LOZADA CATH IN PLACE.DRAINING JEFFRY COLORED URINE, GTUBE ON PLACE WITH ONGOING GTF OF GLUCERNA RUNNING @ 50ML/HR WITH GOAL OF 70 ML/HR, PATENCY AND RESIDUAL CHECKED NO RESIDUAL NOTED SEE NURSING FLOWSHEET FOR SKIN ISSUES. WILL PERFORM PRESCRIBED WOUND TREATMENT IN A WHILE. WILL TURN AND REPOSITION Q [address]RS. SAFETY MEASURES IN PLACE; BED IS IN LOCKED AND LOW POSITION, HOB ELEVATED. CALL LIGHT WITHIN REACH, SIDE RAILS UP X2.WILL CONT TO MONITOR PT.
--- NOTE | 2019-08-25 19:40 | NUR ---
RT NOTES PT RECEIVED TRACHED ON [facility] VENT ON CHARTED SETTINGS. NO SIGNS OF RESP DISTRESS/SOB NOTED AT THIS TIME. AIRWAY PATENT AND SECURED. PT SUCTIONED. ALARMS SET AND AUDIBLE. AMBUBAG AND SPARE TRACH AT BEDSIDE. VENT CONNECTED TO RED OUTLET. WILL CONT TO MONITOR. Addendum: 08/25/19 at 2014 by MONSE MCCALLUM RT Amended: Links added.
[2019-08-25 20:17] VITALS: BP 153/70
[2019-08-26] VITALS (7 sets, daily range): BP systolic 133–157; BP diastolic 57–85
[2019-08-26] MEDS: MEROPENEM 500 MG in IV NS 0.9% 100 ML IV SCH ×3 (01:52→18:06)
[2019-08-26] MEDS: IV D5/ 0.9% NACL 1,000 ML IV PRN (05:13)
[2019-08-26] MEDS: BLOOD SUGAR DIAGNOSTIC 1 EACH STRIP IN SCH ×3 (05:38→18:01)
[2019-08-26] MEDS: INSULIN REGULAR, HUMAN 100 UNIT/ML 3 ML VIAL SQ PRN ×3 (05:39→18:47)
[2019-08-26] MEDS: VANCOMYCIN 1 GM in IV D5W 250ml IV SCH ×2 (05:40→18:06)
[2019-08-26 06:38] LABS: CALCIUM, SERUM 8.1 mg/dL (8.5-10.1); CARBON DIOXIDE 22 mmol/L (21-32); CHLORIDE 112 mmol/L (98-107); CREATININE 0.4 mg/dL (0.6-1.3); GLUCOSE 185 mg/dL (74-106); MAGNESIUM 1.9 mg/dL (1.8-2.4); PHOSPHORUS 2.1 mg/dL (2.5-4.9); POTASSIUM 3.7 mmol/L (3.5-5.1); SODIUM SERUM 146 mmol/L (136-145); UREA NITROGEN, BLOOD 8 mg/dL (7-18)
[2019-08-26] MEDS: GLUCERNA 1.2 1,000 ML BOTTLE GT PRN ×2 (06:59→22:14)
--- NOTE | 2019-08-26 07:07 | NUR ---
HOUSEKEEPING ASSOCIATE CLOSING NOTES PATIENT IN BED. OPENS EYES, OBTUNDED. WITH PORTEX 7 TRACH TO MECHANICAL VENT WITH SETTINGS ORDERED, TOLERATING WELL. NO SOB AND ACUTE DISTRESS NOTED. SATURATING 98-100%. SINUS TACH HR 100s. NO SIGNS OF PAIN OR DISCOMFORT, WITH D5 NS AT 75 ML/HR TO MALATHI MIDLINE, SITE CLEAR, ALSO WITH LFA G 18 AND LEFT WRIST G 22 IV ACCESS. BOTH FLUSHES WELL, BOTH SITES CLEAR. LOZADA CATH IN PLACE.DRAINING JEFFRY COLORED URINE 250 ML OUTPUT, GTF ONGOING WITH GLUCERNA 1.2 AT 70 ML/HR .NO RESIDUAL. CHECKED FOR PLACEMENT. PM CARE AND PRESCRIBED WOUND TREATMENT DONE. TURNED AND REPOSITIONED Q [address] S[address]ETY MEASURES IN PLACE; BED IS IN LOCKED AND LOW POSITION, HOB ELEVATED. CALL LIGHT WITHIN REACH, SIDE RAILS UP X2.ALL NEEDS MET AT THIS TIME. WILL ENDORSE TO NEXT SHIFT FOR LEONCIO.
--- NOTE | 2019-08-26 07:42 | NUR ---
BOATSWAINS MATE OPENING NOTES PATIENT IN BED. OPENS EYES, OBTUNDED. WITH PORTEX 7 TRACH TO MECHANICAL VENT WITH SETTINGS ORDERED, TOLERATING WELL. NO SOB AND ACUTE DISTRESS NOTED. SATURATING 98% AT THE MOMENT. SINUS TACH HR 102, NO SIGNS OF PAIN OR DISCOMFORT, WITH D5 NS AT 75 ML/HR TO MALATHI MIDLINE WITH REMAINING 850 ML ON THE BAG, SITE CLEAR, ALSO WITH LFA G 18 AND LEFT WRIST G 22 INTACT, FLUSHED WELL AND NO SIGNS OF INFILTRATION. LOZADA CATH IN PLACE WITH 50ML OF URINE OUTPUT JEFFRY COLOR ON THE BAG.DRAINING VIA GRAVITY. GTF ONGOING WITH GLUCERNA 1.2 AT 70 ML/HR .NO RESIDUAL. CHECKED FOR PLACEMENT. SAFETY MEASURES IN PLACE, BED IN LOCKED AND LOW POSITION, HOB ELEVATED. CALL LIGHT WITHIN REACH, SIDE RAILS UP X2.WILL CONTINUE TO MONITOR THROUGHOUT THE SHIFT.
[2019-08-26] MEDS: PANTOPRAZOLE 40 MG VIAL IV SCH (08:45)
[2019-08-26] MEDS: Z GUARD REMEDY 2 OZ OINT TP SCH (08:51)
[2019-08-26] MEDS: SILVER SULFADIAZINE CREAM 25 GM TUBE TP SCH (08:51)
[2019-08-26] MEDS: DAKINS QUARTER STRENGTH (0.125%) 480 ML BOTTLE TOP SCH (09:19)
[2019-08-26] MEDS: PROSOURCE / PROSTAT (PYXIS) 30 ML UDC GT SCH (17:54)
--- NOTE | 2019-08-26 18:42 | NUR ---
RT END OF THE SHIFT REPORT, PT. 79 Y OLD MALE REC. 0700 AM AWAKE, BUT NOT VERBAL TRACH PORTEX # 7 ON VENT WITH NOTES SETTINGS, ALARMS ARE SET AND FUNCTIONAL. EQUAL CHEST RISE NOTED AND BILATERALLY RHONCHI B/S AND SUX'D FOR SMALL AMT OF ROSE SECRETIONS, NO CHANGES T/O DAY AND PT. REMAIN STABLE. EXTRA TRACH AT THE BEDSIDE. ASSISTANT GENERAL MANAGER DONE, TRACH CARE DONE, HME CHANGED. VENT PLUGGED INTO RED OUT LET & AMBU BAG AT THE BEDSIDE. REPORT WILL PASS TO PM SHIFT. Addendum: 08/26/19 at 1842 by DIANE THOMPSON RT Amended: Links added.
--- NOTE | 2019-08-26 19:50 | NUR ---
SIZE MIXER NOTES RECEIVED PATIENT IN BED. OPENS EYES, OBTUNDED. WITH PORTEX 7 TRACH TO MECHANICAL VENT WITH SETTINGS TOLERATING WELL. NO ACUTE DISTRESS NOTED. SATURATING 97%-98% AT THIS TIME. SINUS TACH HR 80s, NO SIGNS OF PAIN OR DISCOMFORT, NO FACIAL GRIMACING NOTED, WITH D5 NS AT 75 ML/HR TO MALATHI MIDLINE WITH REMAINING 850 ML ON THE BAG, SITE CLEAR, ALSO WITH LFA G 18 AND LEFT WRIST G 22 INTACT, FLUSHED WELL AND NO SIGNS OF INFILTRATION. LOZADA CATHETER IN PLACE URINE OUTPUT JEFFRY COLOR NOTED ON THE BAG.DRAINING VIA GRAVITY. GTF ONGOING WITH GLUCERNA 1.2 AT 70 ML/HR .NO RESIDUAL. CHECKED FOR PLACEMENT. SAFETY MEASURES IN PLACE, BED IN LOW LOCKED AND LOW POSITION, HOB ELEVATED. CALL LIGHT WITHIN REACH, SIDE RAILS UP X2.WILL CONTINUE TO MONITOR ACCORDINGLY.
--- NOTE | 2019-08-26 19:50 | NUR ---
RN CLOSING NOTES PATIENT IN BED, IN NO APPARENT ACUTE DISTRESS NOTED. ON VENTILATOR TOLERATING WELL WITH THE SETTING PER ORDER. ALL NEEDS MET. REPOSITIONED PER PROTOCOL. SAFETY MEASURES IN PLACE. BED IN LOW POSITIONED AND LOCKED. CALL LIGHT WITHIN REACH. ENDORSED TO PM RN FOR LEONCIO.
[2019-08-27] VITALS (7 sets, daily range): BP systolic 133–177; BP diastolic 62–76
[2019-08-27] MEDS: BLOOD SUGAR DIAGNOSTIC 1 EACH STRIP IN SCH ×4 (00:01→17:31)
[2019-08-27] MEDS: INSULIN REGULAR, HUMAN 100 UNIT/ML 3 ML VIAL SQ PRN ×4 (00:11→17:31)
[2019-08-27] MEDS: MEROPENEM 500 MG in IV NS 0.9% 100 ML IV SCH ×3 (01:54→18:01)
[2019-08-27] MEDS: IV D5/ 0.9% NACL 1,000 ML IV PRN ×2 (03:41→23:38)
[2019-08-27 05:44] LABS: BASOPHILS # (AUTO) 0.1 /CMM (0.0-0.2); BASOPHILS % (AUTO) 0.5 % (0.0-2.0); HEMATOCRIT 28 % (39-51); HEMOGLOBIN 9.1 g/dL (13.5-17.5); LYMPHOCYTES # (AUTO) 1.7 /CMM (0.8-4.8); LYMPHOCYTES % (AUTO) 11.1 % (20.0-44.0); MEAN CORPUSCULAR HGB CONC 32 g/dl (31.0-36.0); MEAN CORPUSCULAR VOLUME 88 fL (80-96); MONOCYTES # (AUTO) 0.9 /CMM (0.1-1.30); MONOCYTES % (AUTO) 6.1 % (2.0-12.0); NEUTROPHILS # (AUTO) 12.5 /CMM (1.8-8.9); NEUTROPHILS % (AUTO) 80.3 % (43.0-81.0); PLATELET COUNT (AUTO) 404 /CMM (150-450); RED BLOOD CELL COUNT(AUTO) 3.21 MIL/uL (4.5-6.0); WHITE BLOOD COUNT (AUTO) 15.6 K/uL (4.3-11.0)
--- NOTE | 2019-08-27 06:56 | NUR ---
RN NOTES ALL NEEDS ATTENDED AND MET, SAFETY MEASURES IN PLACE, CALL LIGHT WITHIN EASY REACH, AWAITING FOR VANCO TROUGH RESULT. WILL ENDORSE TO AM NURSE FOR CONTINUITY OF CARE.
[2019-08-27] MEDS: PANTOPRAZOLE 40 MG TABLET.DR PO SCH (07:35)
[2019-08-27 07:37] LABS: CALCIUM, SERUM 8.1 mg/dL (8.5-10.1); CARBON DIOXIDE 26 mmol/L (21-32); CHLORIDE 107 mmol/L (98-107); CREATININE 0.5 mg/dL (0.6-1.3); GLUCOSE 189 mg/dL (74-106); POTASSIUM 4.6 mmol/L (3.5-5.1); SODIUM SERUM 141 mmol/L (136-145); UREA NITROGEN, BLOOD 12 mg/dL (7-18)
[2019-08-27 07:41] LABS: MAGNESIUM 1.6 mg/dL (1.8-2.4); PHOSPHORUS 2.2 mg/dL (2.5-4.9)
[2019-08-27] MEDS: Z GUARD REMEDY 2 OZ OINT TP SCH (08:21)
[2019-08-27] MEDS: PROSOURCE / PROSTAT (PYXIS) 30 ML UDC GT SCH ×2 (08:21→17:00)
[2019-08-27] MEDS: DAKINS QUARTER STRENGTH (0.125%) 480 ML BOTTLE TOP SCH (08:21)
[2019-08-27] MEDS: SILVER SULFADIAZINE CREAM 25 GM TUBE TP SCH (08:22)
[2019-08-27] MEDS: VANCOMYCIN 1 GM in IV D5W 250ml IV SCH ×2 (08:27→17:07)
[2019-08-27] MEDS: ACETAMINOPHEN 650 MG/SUPP.RECT RC PRN (08:34)
[2019-08-27] MEDS: Magnesium 1GM/D5W 100ML PREMIX 100 ML IV SCH ×2 (09:26→10:12)
[2019-08-27] MEDS ORDERED: NEUTRA PHOS 1 POWD.PACKET NG ONE (10:00)
[2019-08-27] MEDS: GLUCERNA 1.2 1,000 ML BOTTLE GT PRN (13:52)
--- NOTE | 2019-08-27 18:53 | NUR ---
RT END OF THE SHIFT REPORT, PT. 79 Y OLD MALE REC. 0700 AM PT. AWAKE, BUT NOT VERBAL TRACH PORTEX # 7 ON VENT WITH NOTES SETTINGS, ALARMS ARE SET AND FUNCTIONAL. EQUAL CHEST RISE NOTED AND BILATERALLY RHONCHI B/S AND SUX'D FOR SMALL AMT OF ROSE SECRETIONS, NO CHANGES T/O DAY AND PT. REMAIN STABLE. EXTRA TRACH AT THE BEDSIDE. BANK VAULT CLERK DONE, HME CHANGED. VENT PLUGGED INTO RED OUT LET & AMBU BAG AT THE BEDSIDE. REPORT WILL PASS TO PM SHIFT. Addendum: 08/27/19 at 1853 by DIANE THOMPSON RT Amended: Links added.
--- NOTE | 2019-08-27 20:25 | NUR ---
RT NOTE Pt rec'd trached on [facility] vent on AC mode. Pt shows no signs of resp distress or sob. Trach patent and secured. HUMAN RESOURCES BENEFITS ADMINISTRATOR cuff pressure noted. Pt sx'd for thick mod amt of pale yellow secretions. Alarms are set and audible. Vent plugged into red outlet. Ambu bag bedside. Will continue to monitor closely. Addendum: 08/27/19 at 2024 by JAZZ SINCLAIR RT Amended: Links added.
--- NOTE | 2019-08-27 20:30 | NUR ---
RN OPENING NOTES: RECEIVED PT IN BED, RESTING A&OX1. ON TRACH PORTEX #7, TOLERATING SETTINGS WELL. NO DISTRESS NOTED. BREATHING EVEN AND UNLABORED. ON TELE MONITOR SHOWING SR. PT OBTUNDED. HAS LOZADA CATHETER, PATENT AND DRAINING. HAS IV SITE ON MALATHI MIDLINE, L WRIST #22 AND LFA #18. ALL LINES FLUSHED, PATENT, AND CLEAN/DRY. ON GT FEEDING OF GLUCERNA 1.2 AT 70ML/HR. ALL NEEDS ANTICIPATED. BED IN LOWEST AND LOCKED POSITION, SIDE RAILS UP X3, CALL LIGHT WITHIN REACH. WILL CONTINUE TO MONITOR.
[2019-08-28] VITALS: BP 165/73
[2019-08-28] MEDS: BLOOD SUGAR DIAGNOSTIC 1 EACH STRIP IN SCH ×4 (00:49→17:46)
[2019-08-28] MEDS: INSULIN REGULAR, HUMAN 100 UNIT/ML 3 ML VIAL SQ PRN ×4 (00:56→17:51)
[2019-08-28] MEDS: HYDROCODONE/APAP 5/325MG 1 EACH TABLET PO PRN (01:11)
[2019-08-28] MEDS: MEROPENEM 500 MG in IV NS 0.9% 100 ML IV SCH ×3 (02:06→17:36)
[2019-08-28 04:00] VITALS: BP 159/68
[2019-08-28] MEDS: GLUCERNA 1.2 1,000 ML BOTTLE GT PRN ×2 (04:44→17:47)
[2019-08-28] MEDS: VANCOMYCIN 1 GM in IV D5W 250ml IV SCH ×2 (05:45→17:37)
--- NOTE | 2019-08-28 06:55 | NUR ---
RN CLOSING NOTES: PT RESTING IN BED A&0X1. ON TRACH PORTEX #7 TOLERATING SETTINGS WELL. NO DISTRESS NOTED DURING SHIFT. NO SIGNIFICANT CHANGES DURING SHIFT. PT OBTUNDED. HAS IV SITES ON MALATHI, LEFT WRIST AND LFA. ON GT FEEDING OF GLUCERNA 1.2 AT 70ML/HR. KEPT CLEAN AND DRY. ALL NEEDS ANTICIPATED AND MET. BED IN LOWEST AND LOCKED POSITION, SIDE RAILS UP X3, CALL LIGHT WITHIN REACH. WILL ENDORSE TO AM NURSE FOR LEONCIO.
--- NOTE | 2019-08-28 07:00 | NUR ---
RN INITIAL NOTE RECEIVED REPORT AT BEDSIDE. PATIENT ASLEEP BUT EASILY AROUSABLE TO NAME AND TOUCH. ON TELE MONITOR, SR. ON VENT, SATING WELL. NO SIGNS OF ANY DISTRESS AT THIS TIME. HAS A LOZADA CATH WITH CLEAR AND YELLOW URINE. ON GTF, GLUCERNA AT 70 ML/HR. BED LOCKED AND IN LOW IN POSITION. WILL CONTINUE TO MONITOR
[2019-08-28 07:03] LABS: CALCIUM, SERUM 8.1 mg/dL (8.5-10.1); CARBON DIOXIDE 26 mmol/L (21-32); CHLORIDE 106 mmol/L (98-107); CREATININE 0.5 mg/dL (0.6-1.3); GLUCOSE 203 mg/dL (74-106); MAGNESIUM 1.7 mg/dL (1.8-2.4); PHOSPHORUS 2.2 mg/dL (2.5-4.9); POTASSIUM 4.4 mmol/L (3.5-5.1); SODIUM SERUM 139 mmol/L (136-145); UREA NITROGEN, BLOOD 14 mg/dL (7-18)
[2019-08-28 08:00] VITALS: BP 141/72
[2019-08-28] MEDS: PANTOPRAZOLE 40 MG TABLET.DR PO SCH (08:13)
[2019-08-28] MEDS: PROSOURCE / PROSTAT (PYXIS) 30 ML UDC GT SCH ×2 (08:13→16:05)
[2019-08-28] MEDS: Z GUARD REMEDY 2 OZ OINT TP SCH (08:18)
[2019-08-28] MEDS: SILVER SULFADIAZINE CREAM 25 GM TUBE TP SCH (08:18)
[2019-08-28] MEDS: DAKINS QUARTER STRENGTH (0.125%) 480 ML BOTTLE TOP SCH (08:19)
--- NOTE | 2019-08-28 11:05 | NUR ---
RN NOTE CALLED PHARMACY ASKED FOR MG AND PHOS REPLACEMENTS
[2019-08-28] MEDS ORDERED: NEUTRA PHOS 1 POWD.PACKET PO ONE (11:30)
[2019-08-28] MEDS: Magnesium 1GM/D5W 100ML PREMIX 100 ML IV SCH ×2 (11:31→12:32)
[2019-08-28 12:00] VITALS: BP 159/74
[2019-08-28] MEDS: IV D5/ 0.9% NACL 1,000 ML IV PRN (15:35)
[2019-08-28 16:00] VITALS: BP 154/73
--- NOTE | 2019-08-28 18:04 | NUR ---
RN NOTE CALLED DESI KRISHNA TO VERIFY IF PATIENT WAS ON ISOLATION. PATIENT WAS ON CONTACT ISOLATION FOR CRE OF THE URINE.
--- NOTE | 2019-08-28 18:46 | NUR ---
RN CLOSING NOTE PATIENT, AWAKE, OPENS EYES ONLY. NO SIGNS OF ANY DISTRESS AT THIS TIME. ALL MEDS GIVEN. ALL NEEDS MET. REPOSITIONED PER PROTOCOL. WOUND CARE ORDERED. ON VENT, SATING WELL. ON TELE MONITOR, SR/ST. HAS LOZADA WITH CLEAR AND YELLOW URINE, 650 ML OUT. NO BM NOTED. ON D5 NS AT 75 ML/HR. AND GLUCERNA GTF AT 70 ML/HR. INSULIN COVERAGE GIVEN. MG AND PHOS REPLACED PER PHARMACY. ALL IV SITE PATENT, INTACT AND FLUSHING WELL. WILL ENDORSE TO NOC SHIFT FOR LEONCIO
[2019-08-28 20:00] VITALS: BP 140/78
[2019-08-29] VITALS (11 sets, daily range): BP systolic 119–184; BP diastolic 40–83
[2019-08-29] MEDS: BLOOD SUGAR DIAGNOSTIC 1 EACH STRIP IN SCH ×5 (00:59→23:36)
[2019-08-29] MEDS: INSULIN REGULAR, HUMAN 100 UNIT/ML 3 ML VIAL SQ PRN ×5 (01:05→23:42)
[2019-08-29] MEDS: MEROPENEM 500 MG in IV NS 0.9% 100 ML IV SCH ×3 (01:50→17:39)
[2019-08-29] MEDS: ACETAMINOPHEN 650 MG/SUPP.RECT RC PRN (05:15)
[2019-08-29] MEDS: HYDROCODONE/APAP 5/325MG 1 EACH TABLET PO PRN ×2 (05:15→21:37)
--- NOTE | 2019-08-29 05:27 | NUR ---
RT NOTE Pt rec'd trached on [facility] vent on AC mode. Pt shows no signs of resp distress or sob. Trach patent and secured. BENZOL OPERATOR cuff pressure noted. Pt sx'd for thick mod amt of pale yellow secretions. Alarms are set and audible. Vent plugged into red outlet. Ambu bag bedside. Will continue to monitor closely. Addendum: 08/29/19 at 0528 by JAZZ SINCLAIR RT Amended: Links added.
[2019-08-29 06:19] LABS: BASOPHILS % (AUTO) 0.3 % (0.0-2.0); EOSINOPHILS % (AUTO) 2.9 % (0.0-6.0); HEMATOCRIT 28 % (39-51); HEMOGLOBIN 8.8 g/dL (13.5-17.5); LYMPHOCYTES # (AUTO) 1.5 /CMM (0.8-4.8); LYMPHOCYTES % (AUTO) 12.3 % (20.0-44.0); MEAN CORPUSCULAR HGB CONC 32 g/dl (31.0-36.0); MEAN CORPUSCULAR VOLUME 88 fL (80-96); MONOCYTES # (AUTO) 0.9 /CMM (0.1-1.30); MONOCYTES % (AUTO) 7.6 % (2.0-12.0); NEUTROPHILS # (AUTO) 9.5 /CMM (1.8-8.9); NEUTROPHILS % (AUTO) 76.9 % (43.0-81.0); PLATELET COUNT (AUTO) 405 /CMM (150-450); RED BLOOD CELL COUNT(AUTO) 3.13 MIL/uL (4.5-6.0); WHITE BLOOD COUNT (AUTO) 12.3 K/uL (4.3-11.0)
[2019-08-29] MEDS: VANCOMYCIN 1 GM in IV D5W 250ml IV SCH ×2 (06:38→17:39)
[2019-08-29 06:48] LABS: CALCIUM, SERUM 7.8 mg/dL (8.5-10.1); CARBON DIOXIDE 28 mmol/L (21-32); CHLORIDE 106 mmol/L (98-107); CREATININE 0.4 mg/dL (0.6-1.3); GLUCOSE 237 mg/dL (74-106); PHOSPHORUS 2.6 mg/dL (2.5-4.9); POTASSIUM 4.8 mmol/L (3.5-5.1); SODIUM SERUM 139 mmol/L (136-145); UREA NITROGEN, BLOOD 22 mg/dL (7-18)
[2019-08-29] MEDS: DAKINS QUARTER STRENGTH (0.125%) 480 ML BOTTLE TOP SCH (09:56)
[2019-08-29] MEDS: PROSOURCE / PROSTAT (PYXIS) 30 ML UDC GT SCH ×2 (09:56→17:53)
[2019-08-29] MEDS: SILVER SULFADIAZINE CREAM 25 GM TUBE TP SCH (09:57)
[2019-08-29] MEDS: Z GUARD REMEDY 2 OZ OINT TP SCH (09:57)
[2019-08-29] MEDS: PANTOPRAZOLE 40 MG TABLET.DR PO SCH (10:01)
[2019-08-29] MEDS ORDERED: LIDOCAINE MPF 1%-EPI 1:200,000 30 ML VIAL IJ ONE (15:00)
[2019-08-29] MEDS ORDERED: SILVER NITRATE APPLICATOR 1 EA BOX TP ONE (15:00)
[2019-08-29] MEDS: GLUCERNA 1.2 1,000 ML BOTTLE GT PRN (19:45)
[2019-08-29] MEDS: IV D5/ 0.9% NACL 1,000 ML IV PRN (19:45)
--- NOTE | 2019-08-29 20:00 | NUR ---
SPECIALTY MANUFACTURING SUPERVISOR: RECEIVED REPORT FROM DUANE POST AT 1905. [facility] WITH THE FF SETTING AC 16, TV 600, FIO2 40% PEEP 5, PORTEX #7, AMBU BAG AT BED SIDE, CLINICAL ALARMS CHECK AND NOTED TO BE AUDIBLE. CONNECTED ON CONTINUOUS PULSE OXIMETRY. TELE MONITORING SINUS TACH 102. PT OBTUNDED. NOTED BILATERAL ARMS EDEMATOUS AND SKIN WEEPING. LOZADA CATHETER IN PLACED, BAG DRAINING BY GRAVITY. PT HAS PEG, GTUBE FEEDING. PER REPORT DAY RN LEFT A MESSAGE TO FAMILY FOR CONSENT FOR SERIAL DEBRIDEMENT BUT NOT RESPONSE OBTAINED, EMT/DISPATCHER MADE AWARE. BLE AND BUE OFFLOADED ON PILLOWS. SUCTION SET UP SECURED. PPE UTILIZED, ISOLATION CRE WOUND HX. SAFETY PRECAUTIONS FOR FALL INITAITED, CALL LIGHT IN REACH, WILL CONTINUE MONITORING PT.
--- NOTE | 2019-08-29 20:30 | NUR ---
RN NOTES/GTUBE ASSESSMENT: PT HAS GTUBE, PATENT AND FLUSHING WELL, ABDOMEN SOFT TO TOUCH WITH ACTIVE BOWEL SOUND HEARD UPON AUSCULTATION. NO RESIDUAL OBTAINED UPON CHECKING
--- NOTE | 2019-08-29 21:37 | NUR ---
prn norco: per clinical nursing assessment, flacc scale utilized, flacc score obtained 5/10, prn norco administered at this time. will continue to monitor and reassess pt
--- NOTE | 2019-08-29 21:40 | NUR ---
rn notes/suctioninth time suctioning pt both oraly and via trache, pt had lots of secretions, whitish thick. oral care provided every after suctioning.
--- NOTE | 2019-08-29 23:00 | NUR ---
RN NOTES: SPOKED WITH [facility] HOSPITALIST RESIDENTIAL CAREGIVER FOR TONIGHT, RELAYED PT'S BP PER MD RECEIVED TELEPHONE ORDER TO GIVE HYDRALAZINE 10MG VIA GTUBE Q4HRS PRN FOR SBP ABOVE 160. ALSO NOTIFIED MD REGARDING MIDLINE INSERTION, PT MULTIPLE IV ATTEMPTS, PT HARD STICK EDEMATOUS BUE, WEEPING SKIN, PT ON 2KINDS OF IV ATB MERREM AND VANCO. PER MD OKAY FOR MIDLINE INSERTION. ORDER READ BACK VERIFIED AND CARRIED OUT. IRISH MOSS GATHERER TIFFANY MADE AWARE.
--- NOTE | 2019-08-29 23:04 | NUR ---
RN NOTES: NOTIFIED RN SUP MARCELA REGARDING MIDLINE INSERTION, PER RN SUP SHE ALREADY CALLED PICC LINE RN BUT HAVENT RECEIVE ANY RESPONSE, UNSURE IF COMING TONIGHT OR TOMORROW.
[2019-08-29] MEDS: hydrALAZINE HCL 10 MG TABLET GT PRN (23:38)
--- NOTE | 2019-08-29 23:42 | NUR ---
PRN HYDRALAZINE/BLOOD GLUCOSE 190: PRN HYDRALAZINE ADMINISTERED VIA GTUBE FOR HIGH BLOOD PRESSURE. FINGERSTICK BLOOD GLUCOSE RESULT IS 190, 3UNITS OF INSULIN GIVEN PER SLIDING SCALE.
[2019-08-30] VITALS (7 sets, daily range): BP systolic 146–181; BP diastolic 63–88
[2019-08-30] MEDS: MEROPENEM 500 MG in IV NS 0.9% 100 ML IV SCH ×2 (01:09→10:53)
--- NOTE | 2019-08-30 01:25 | NUR ---
RT NOTE PT RECEIVED TRACHED MECHANICAL VENTILATION. CUFF CHECKED VIA STRUCTURAL ARCHITECT. AMBU BAG/BACK UP TRACH @ BEDSIDE. SX DONE, TRACH SECURED AND PATENT. ALARMS ON AND AUDIBLE. NO SOB NOTED. WILL CONTINUE TO MONITOR. CONT. PULSE OX CONNECTED. Addendum: 08/30/19 at 0125 by VERONICA COBB RT Amended: Links added.
[2019-08-30] MEDS: VANCOMYCIN 1 GM in IV D5W 250ml IV SCH (05:06)
[2019-08-30] MEDS: BLOOD SUGAR DIAGNOSTIC 1 EACH STRIP IN SCH ×2 (05:07→11:11)
[2019-08-30] MEDS: INSULIN REGULAR, HUMAN 100 UNIT/ML 3 ML VIAL SQ PRN ×2 (05:09→11:15)
--- NOTE | 2019-08-30 05:09 | NUR ---
RN NOTES/BLOOD GLUCOSE 189: BLOOD GLUCOSE 189, 3 UNITS OF INSULIN GIVEN PER SLIDING SCALE.
--- NOTE | 2019-08-30 06:35 | NUR ---
end of shift report: pt remains obtunded, tolerated mech vent setting well, remains connected to continuous pulse ox spo2 100%, currently sinus tachy hr 101. suction secretions orally and via trache. oral care provided. peg tube remains patent, currently on glucerna at 70ml/hr, abdomen remains soft to touch with active bowel sound, no residual obtained. new iv access secured on right thumb g 22 infusing with vanco iv atb. wound care dressing performed, assisted wood tank erector in providing bed bath and complete linen change. quintana catheter emptied with 1000ml output. bag draining via gravity. pt for serial debridement today, awaiting consent from family, supplied secured. no s/s of active bleeding noted. awaiting midline insertion. vs remains stable, needs attended. safety precautions for fall remains engaged, call light in reach, will endorse to day rn for continuity of care.
[2019-08-30 06:42] LABS: CALCIUM, SERUM 8.2 mg/dL (8.5-10.1); CARBON DIOXIDE 30 mmol/L (21-32); CHLORIDE 102 mmol/L (98-107); CREATININE 0.5 mg/dL (0.6-1.3); GLUCOSE 200 mg/dL (74-106); POTASSIUM 4.8 mmol/L (3.5-5.1); SODIUM SERUM 136 mmol/L (136-145); UREA NITROGEN, BLOOD 18 mg/dL (7-18)
[2019-08-30] MEDS: hydrALAZINE HCL 10 MG TABLET GT PRN ×2 (10:51→16:16)
[2019-08-30] MEDS: PROSOURCE / PROSTAT (PYXIS) 30 ML UDC GT SCH ×2 (10:51→16:16)
[2019-08-30] MEDS: PANTOPRAZOLE 40 MG TABLET.DR PO SCH (10:51)
[2019-08-30] MEDS: SILVER SULFADIAZINE CREAM 25 GM TUBE TP SCH (10:56)
[2019-08-30] MEDS: Z GUARD REMEDY 2 OZ OINT TP SCH (10:56)
[2019-08-30] MEDS: DAKINS QUARTER STRENGTH (0.125%) 480 ML BOTTLE TOP SCH (10:56)
[2019-08-30] MEDS ORDERED: MERO500V21 IV (12:12)
[2019-08-30] MEDS ORDERED: VANC1PLA9 IV (12:12)
[2019-08-30] MEDS ORDERED: SILVER NITRATE APPLICATOR 1 EA BOX TP ONE (14:30)
[2019-08-30] MEDS: HYDROCODONE/APAP 5/325MG 1 EACH TABLET PO PRN (16:15)
--- NOTE | 2019-08-30 17:55 | NUR ---
RN NOTE PT DISCHARGED TO [facility] REPORT GIVEN TO SINCERE CATHERINE. PT WAS STABLE, LOZADA AND MALATHI MIDLINE, KEPT IN PLACE, GTUBE FLASHED AND CLAMPED. EXIT CARE DONE, DISCHARGE INSTRUCTIONS PROVIDED, PT OBTUNDED UNABLE TO COMPREHEND TEACHINGS. PAPERS GIVEN TO EMT. TELEMETRY BOX REMOVED.
== END 2019-08-30 17:55 | DRG 356 ==
LOC: ER 00:04 → TELE1 01:37
PROVIDERS: ATTEND Internal Medicine
PROC: 5A1955Z Respiratory Ventilation, Greater than 96 Consecutive Hours (ICD-10-PCS; 2019-08-22)
PROC: 30233N1 Transfusion of Nonautologous Red Blood Cells into Peripheral Vein, Percutaneous Approach (ICD-10-PCS; 2019-08-22)
PROC: 0JBR0ZZ Excision of Left Foot Subcutaneous Tissue and Fascia, Open Approach (ICD-10-PCS; principal; 2019-08-23)
PROC: 0JBQ0ZZ Excision of Right Foot Subcutaneous Tissue and Fascia, Open Approach (ICD-10-PCS; 2019-08-23)
PROC: 0DB68ZX Excision of Stomach, Via Natural or Artificial Opening Endoscopic, Diagnostic (ICD-10-PCS; 2019-08-25)
PROC: 0KBP0ZZ Excision of Left Hip Muscle, Open Approach (ICD-10-PCS; 2019-08-30)
PROC: 0KBN0ZZ Excision of Right Hip Muscle, Open Approach (ICD-10-PCS; 2019-08-30)
PROC: 0KBG0ZZ Excision of Left Trunk Muscle, Open Approach (ICD-10-PCS; 2019-08-30)
PROC: 0KBF0ZZ Excision of Right Trunk Muscle, Open Approach (ICD-10-PCS; 2019-08-30)
PROC: 05H533Z Insertion of Infusion Device into Right Subclavian Vein, Percutaneous Approach (ICD-10-PCS; 2019-08-30)
PROC: B546ZZA Ultrasonography of Right Subclavian Vein, Guidance (ICD-10-PCS; 2019-08-30)
DX: K29.71 Gastritis, unspecified, with bleeding (principal); L89.324 Pressure ulcer of left buttock, stage 4; L89.154 Pressure ulcer of sacral region, stage 4; A41.9 Sepsis, unspecified organism; J15.6 Pneumonia due to other Gram-negative bacteria; G93.1 Anoxic brain damage, not elsewhere classified; Z99.11 Dependence on respirator [ventilator] status; L97.419 Non-pressure chronic ulcer of right heel and midfoot with unspecified severity; L97.429 Non-pressure chronic ulcer of left heel and midfoot with unspecified severity; J98.11 Atelectasis; J96.11 Chronic respiratory failure with hypoxia; D64.9 Anemia, unspecified; I10 Essential (primary) hypertension; N40.0 Benign prostatic hyperplasia without lower urinary tract symptoms; Z86.74 Personal history of sudden cardiac arrest; E11.621 Type 2 diabetes mellitus with foot ulcer; D72.829 Elevated white blood cell count, unspecified; D47.3 Essential (hemorrhagic) thrombocythemia; Z93.1 Gastrostomy status; E11.51 Type 2 diabetes mellitus with diabetic peripheral angiopathy without gangrene; M20.42 Other hammer toe(s) (acquired), left foot; M20.41 Other hammer toe(s) (acquired), right foot; Z79.4 Long term (current) use of insulin; L97.529 Non-pressure chronic ulcer of other part of left foot with unspecified severity; D50.0 Iron deficiency anemia secondary to blood loss (chronic); E11.649 Type 2 diabetes mellitus with hypoglycemia without coma; R13.10 Dysphagia, unspecified; L89.310 Pressure ulcer of right buttock, unstageable
CPT/HCPCS: 31720; 36410; 36415; 71045-TC; 73620-TC; 80048-TC; 80061-TC; 80076-TC; 80202-TC; 81000-TC; 82962-TC; 83735-TC; 84100-TC; 85025-TC; 85730-TC; 86850-TC; 86921-TC; 87040-TC; 87081-TC; 88305-TC; 88313-TC; 88342; 93970-TC; 94002-TC; 94003-TC; 94760-TC; 94762-TC; 94799-TC; 99082-TC; A4216; A4217; A4623; A6253; A6403; A7526; C9113; G0378; J0456; J0696; J1815; J2185; J2704; J3370; J3475; J3480; J3490; J7030; J7042; J7050; J7060; J7120; P9016-BL

== ENCOUNTER 2019-09-22 22:55 | Inpatient (IN) | payer MEDICARE, OTHER ==
[~2019-09-22] VITALS: Ht 165.1 cm; Wt 70.8 kg
[~2019-09-22 22:55] MED LIST: ACET-2605 GT; ACET-868 GT; AMIN30LI2 GT; AMLO10TA7 GT; ASCO500T9 GT; ATOR80TA GT; BISA10SU11 RC; CHLO473M5 MM; CLON0.1T GT; DOCU-141 GT; EPOE3000 SQ; FAMO-131 GT; FERR300L GT; INSU100V10 SQ; INSU100V11 SQ; IPRA0.2S9 IH; MAGN400O21 GT; MERO500V21 IV; MULT-447 GT; NA P133E RC; NUT.250L18 GT; NUTR1PAC14 GT; ONDA4TAB5 GT; TRAM50TA2 GT; VANC1PLA9 IV
--- NOTE | 2019-09-22 23:00 | NUR ---
RT Pt brought into ER by paramedics trached being manually ventilated by paramedics. Paramedics state he is normally on mechanical ventilation but are unaware of pt vent settings. Pt was placed on hospital ventilator with noted setting per Dr. Eckert orders. Addendum: 09/22/19 at 2323 by MARY MCCARTY RT Amended: Links added.
[2019-09-22] MEDS ORDERED: ADENOSINE 6 MG/2 ML VIAL ONE ×2 (23:13→23:35)
[2019-09-22 23:16] LABS: BASOPHILS # (AUTO) 0.1 /CMM (0.0-0.2); BASOPHILS % (AUTO) 0.3 % (0.0-2.0); EOSINOPHILS % (AUTO) 0.5 % (0.0-6.0); HEMOGLOBIN 8.3 g/dL (13.5-17.5)
--- NOTE | 2019-09-22 23:19 | NUR ---
PATIENT CAME TO ER BED 8 BIB RA C/O RAPID HEART RATE. PT WAS BROUGHT IN FROM [facility] C/O HIGH HEART RATE AND RESP. FAILURE. PT. IS PLACED ON VENT. HAS A LOZADA CATHETER IN PLACE, AND A MIDLINE ON THE RIGHT BRACHIAL. AAOX0. PATIENT IS PLACED ON OUTSOLE SCHEDULER.
[2019-09-22 23:20] LABS: HEMATOCRIT 26 % (39-51); LYMPHOCYTES # (AUTO) 1.3 /CMM (0.8-4.8); LYMPHOCYTES % (AUTO) 4.1 % (20.0-44.0); MEAN CORPUSCULAR HGB CONC 32 g/dl (31.0-36.0); MEAN CORPUSCULAR VOLUME 90 fL (80-96); MONOCYTES # (AUTO) 0.6 /CMM (0.1-1.30); MONOCYTES % (AUTO) 1.8 % (2.0-12.0); NEUTROPHILS % (AUTO) 93.3 % (43.0-81.0); PLATELET COUNT (AUTO) 719 /CMM (150-450); RED BLOOD CELL COUNT(AUTO) 2.91 MIL/uL (4.5-6.0)
--- NOTE | 2019-09-22 23:22 | NUR ---
BLOOD, URINE, AND CULTURES SENT TO LAB FOR TESTING.
--- NOTE | 2019-09-22 23:24 | NUR ---
VENT SETTINGS: 16 A/C, 550 TIDAL VOLUME, 5.0 PEEP. FIO2 80%.
[2019-09-22 23:25] LABS: CALCIUM, SERUM 8.2 mg/dL (8.5-10.1); CARBON DIOXIDE 25 mmol/L (21-32); CHLORIDE 108 mmol/L (98-107); CREATININE 0.8 mg/dL (0.6-1.3); GLUCOSE 165 mg/dL (74-106); SODIUM SERUM 143 mmol/L (136-145); UREA NITROGEN, BLOOD 40 mg/dL (7-18)
[2019-09-22 23:28] LABS: WHITE BLOOD COUNT (AUTO) 32.2 K/uL (4.3-11.0)
[2019-09-22] MEDS ORDERED: ACETAMINOPHEN 650 MG/SUPP.RECT RC ONE ×2 (23:30→23:43)
[2019-09-22] MEDS ORDERED: ADENOSINE 6 MG/2 ML VIAL IVP ONE ×2 (23:30)
[2019-09-22 23:38] LABS: EOSINOPHILS % (MANUAL) 1 % (0-4); LYMPHOCYTES % (MANUAL) 4 % (16-48); MONOCYTES % (MANUAL) 4 % (0-11.0); NEUTROPHILS % (MANUAL) 91 (42-76)
[2019-09-22 23:40] LABS: ALANINE AMINOTRANSFERASE 8 U/L (12-78); ALKALINE PHOSPHATASE 192 U/L (46-116); ASPARTATE AMINOTRANSFERASE 26 U/L (15-37); B-TYPE NATRIURETIC PEPTIDE 2781 PG/ML (0-125); BILIRUBIN,DIRECT 0.1 mg/dL (0.0-0.2); BILIRUBIN,TOTAL 0.3 mg/dL (0.2-1.0); TOTAL PROTEIN, SERUM 6.6 g/dL (6.4-8.2)
[2019-09-22 23:42] LABS: ALBUMIN 1.2 g/dL (3.4-5.0)
[2019-09-22] MEDS ORDERED: DILTIAZEM HCL 50 MG IV ONE (23:51)
[2019-09-22 23:59] LABS: ABG BASE EXCESS 1.8 mmol/L; ABG OXYGEN SATURATION 98.7 % (92.0-98.5); ABG PCO2 32.9 mmHg (35.0-45.0); ABG PH 7.496 (7.350-7.450); ABG PO2 165.8 mmHg (75.0-100.0); AaDO2 370.1 mmHg; COHb 0.3 % (0.5-1.5); MetHb 0.9 % (0.0-1.5); O2Hb 97.5 % (94.0-97.0); PEEP,BG 5 cm H2O; SITE, ABG Right Radial; VT, ABG 550 mL
[2019-09-23] VITALS (7 sets, daily range): BP systolic 122–154; BP diastolic 56–68
[2019-09-23] MEDS ORDERED: VANCOMYCIN 1 GM in IV D5W 250 ML IV ONE ×2
[2019-09-23] MEDS ORDERED: PIPERACILLIN /TAZOBACTAM 3.375 G in IV D5W 50 ML IV ONE ×2
[2019-09-23] MEDS ORDERED: DILTIAZEM HCL 50 MG IV IV ONE
--- NOTE | 2019-09-23 00:01 | NUR ---
FIO2 CHANGED FROM 80% TO 60%.
--- NOTE | 2019-09-23 00:04 | NUR ---
CALLED SUP FOR ICU BED. +ISO
--- NOTE | 2019-09-23 00:05 | NUR ---
ER DOC ON PHONE WITH HOSPITALIST
--- NOTE | 2019-09-23 00:09 | NUR ---
ER MD TALKING TO PT REGARDING MARCELLA AGUIRRE DNP REGARDING PT ADMISSION.
[2019-09-23] MEDS ORDERED: DILTIAZEM HCL 50 MG IV ONE (00:13)
[2019-09-23] MEDS ORDERED: DILTIAZEM HCL 25 MG IV ONE (00:13)
[2019-09-23] MEDS ORDERED: VANCOMYCIN 1 GM VIAL ONE (00:14)
[2019-09-23] MEDS ORDERED: PIPERACILLIN /TAZOBACTAM 3.375 G VIAL IV ONE ×2 (00:14→06:14)
--- NOTE | 2019-09-23 00:14 | NUR ---
DOWNGRADING TO [facility]. WILL NEED A NEW BED.
[2019-09-23 00:18] LABS: APPEARANCE,URINE Clear (CLEAR); BILIRUBIN,URINE Negative (NEGATIVE); BLOOD, URINE Large Ery/uL (NEGATIVE); COLOR,URINE Yellow (YELLOW); KETONES,URINE Negative (NEGATIVE); LEUKOCYTE ESTERASE ,URINE Small (NEGATIVE); NITRITE, URINE Negative (NEGATIVE); PROTEIN,URINE >=300 mg/dl (NEGATIVE); UGLUCOSE Negative (NEGATIVE); UROBILINOGEN,URINE 0.2 EU/dL (0.2)
--- NOTE | 2019-09-23 00:28 | NUR ---
CARDIZEM DRIP TITRATED TO 10MG/HR.
[2019-09-23] MEDS ORDERED: IV NS 0.9% 1,000 ML BAG IV ONE (00:30)
--- NOTE | 2019-09-23 00:31 | NUR ---
[facility] BED 106
[2019-09-23] MEDS ORDERED: Z GUARD REMEDY 2 OZ OINT TP PRN (01:00)
[2019-09-23] MEDS ORDERED: MORPHINE SULFATE INJ 2 MG/ML DISP.SYRIN IV PRN (01:00)
[2019-09-23] MEDS ORDERED: DILTIAZEM HCL IV 125 MG in IV NS 0.9% 100 ML IV PRN ×3 (01:00)
[2019-09-23] MEDS ORDERED: ONDANSETRON HCL/PF 4 MG/2 ML VIAL IVP PRN (01:00)
[2019-09-23 01:10] LABS: BACTERIA,URINE None seen /HPF (None Seen); SQUAMOUS EPITHELIAL CELL,UR Few /HPF (None Seen)
[2019-09-23] MEDS ORDERED: VANCOMYCIN 500 MG in IV D5W 100ml IV ONE (01:30)
--- NOTE | 2019-09-23 01:32 | NUR ---
REPORT GIVEN TO ZEUS POST FOR LEONCIO.
--- NOTE | 2019-09-23 01:33 | NUR ---
Received report from SINECRE Joshua in ER.
--- NOTE | 2019-09-23 01:50 | NUR ---
RN OPENING NOTES: Received pt from ER via gurteresa accompanied by RN and respiratory therapist. Admitted to [facility] w/ dx of sepsis. Pt obtunded, opens eyes to painful stimuli. On trach and vent, Portex #7, with settings of AC 16, TV 550, FiO2 50% and PEEP of 5.0 tolerating well. On tele monitor showing sinus tachy. In isolation for VRE. Has IV sites on right upper arm mid line and left wrist #18. Patent and flushing. Dressing changed on midline. Has Cardizem drip running at 10ml/hr. Has quintana cath in place, patent and draining urine. Has GT site, flushed and patent. Vitals are BP 12/56, P 108, RR 18, O2 96% and temp 99.0. Pt given bed bath, linens changed and pictures taken of wounds. Will continue to monitor.
--- NOTE | 2019-09-23 04:20 | NUR ---
RN NOTES: 0130 Vanco not given in unit. Pt received in ER and came into unit with Amanda running.
[2019-09-23] MEDS ORDERED: ZOSYN IVPB 3.375 G in IV D5W 50ml IV ONE (06:00)
--- NOTE | 2019-09-23 06:00 | NUR ---
0600 CARDIZEM TITRATED DOWN TO 5MG/HR. HR SUSTAINED IN THE 70'S - 80'S NORMAL SINUS RHYTHM. NO ECTOPIES. AFEBRILE. NO SIGNS OF DISTRESS NOTED.
[2019-09-23] MEDS ORDERED: FEE PK DOSING 1 MIN EA MC ONE (06:54)
--- NOTE | 2019-09-23 06:57 | NUR ---
RN CLOSING NOTES: Pt resting in bed, obtunded. On vent and trach tolerating settings well. No respiratory distress noted during shift. No acute changes noted during shift. On tele monitor showing ST. Has right UA midline and left wrist #18 patent and flushed. Dressings c/d/i. Has quintana cath in place draining urine. Safety measures in place, bed in lowest and locked position, side rails up x3, call light within reach. Will endorse to AM nurse for LEONCIO.
[2019-09-23 07:14] LABS: THYROID STIMULATING HORMONE 3.362 uIU/mL (0.358-3.74)
--- NOTE | 2019-09-23 07:20 | NUR ---
[facility] RN OPENING NOTE RECEIVED BEDSIDE REPORT. PT OBTUNDED, ON VENT/TRACH TOLERATING SETTINGS WELL, RESPIRATIONS EVEN AND UNLABORED, NO SIGNS OF RESPIRATORY DISTRESS NOTED. ON TELE MONITOR SINUS RHYTHM. RIGHT UPPER ARM MIDLINE, INTACT, SECURED WITH CLEAN DRESSING. IV SITE ON LEFT WRIST G18 INTACT, PATENT, CARDIZEM INFUSING AT 5MG/HR. LOZADA CATH INTACT, PATENT, DRAINING CLEAR YELLOW URINE. G-TUBE INTACT, FLUSHING WELL. WILL CONTACT MD TO OBTAIN ORDERS FOR TUBE FEEDING. BED IN LOW POSITION, LOCKED, CALL LIGHT WITHIN REACH.
[2019-09-23] MEDS ORDERED: EPOE1VIA7 SQ (08:32)
[2019-09-23] MEDS: PANTOPRAZOLE 40 MG VIAL IV SCH (08:35)
[2019-09-23] MEDS ORDERED: GLUCERNA 1.2 1,000 ML BOTTLE NG PRN (10:00)
[2019-09-23] MEDS: IPRATROPIUM NEB FS 0.5 MG/2.5 ML AMPUL.NEB NEB SCH ×3 (10:30→19:30)
[2019-09-23] MEDS: VANCOMYCIN 1 GM in IV D5W 250ml IV SCH ×2 (11:55→23:04)
[2019-09-23] MEDS: PIPERACILLIN /TAZOBACTAM 3.375 G in IV D5W 100 ML IV SCH ×2 (12:00→20:03)
[2019-09-23] MEDS: GLUCERNA 1.2 1,000 ML BOTTLE NG PRN (13:11)
--- NOTE | 2019-09-23 15:00 | NUR ---
CALLED PHARMACY, REQUESTING HYDROGEL TO BE DELIVERED
[2019-09-23] MEDS: SILVER SULFADIAZINE CREAM 25 GM TUBE TP SCH (16:28)
--- NOTE | 2019-09-23 16:28 | NUR ---
PHARMACY DELIVERED SILVADENE CREAM LATE- PERFORMED WOUND CARE AT 16:28 INSTEAD OF SCHEDULED 1500
[2019-09-23] MEDS ORDERED: MAGNESIUM HYDROXIDE 30 ML UDC GT PRN (17:00)
[2019-09-23] MEDS ORDERED: TRAMADOL HCL 50 MG TABLET GT PRN (17:00)
--- NOTE | 2019-09-23 17:15 | NUR ---
CALLED PHARMACY TO FOLLOWUP ON HYDROGEL, STILL NOT AVAILABLE
[2019-09-23] MEDS: AMIODARONE HCL 200 MG TABLET GT SCH (17:21)
[2019-09-23] MEDS: FAMOTIDINE (20 MG) 20 MG TABLET GT SCH (17:21)
[2019-09-23] MEDS: BLOOD SUGAR DIAGNOSTIC 1 EACH STRIP IN SCH ×2 (18:20→23:50)
[2019-09-23 18:24] LABS: MAGNESIUM 1.9 mg/dL (1.8-2.4); PHOSPHORUS 2.8 mg/dL (2.5-4.9)
[2019-09-23] MEDS: HYDROGEL DRESSING 90 GM TUBE TP SCH (18:42)
--- NOTE | 2019-09-23 18:42 | NUR ---
RECEIVED HYDROGEL FROM PHARMACY
[2019-09-23 18:54] LABS: THYROID STIMULATING HORMONE 3.258 uIU/mL (0.358-3.74)
[2019-09-23] MEDS: IPRATROPIUM NEB FS 0.5 MG/2.5 ML AMPUL.NEB IH SCH (20:11)
[2019-09-24] VITALS (11 sets, daily range): BP systolic 152–165; BP diastolic 65–96
[2019-09-24] MEDS: IPRATROPIUM NEB FS 0.5 MG/2.5 ML AMPUL.NEB NEB SCH ×3 (01:30→13:30)
[2019-09-24] MEDS: IPRATROPIUM NEB FS 0.5 MG/2.5 ML AMPUL.NEB IH SCH ×4 (02:18→20:23)
[2019-09-24] MEDS: PIPERACILLIN /TAZOBACTAM 3.375 G in IV D5W 100 ML IV SCH ×3 (04:11→20:47)
[2019-09-24] MEDS: BLOOD SUGAR DIAGNOSTIC 1 EACH STRIP IN SCH ×3 (05:48→17:02)
[2019-09-24 06:24] LABS: BASOPHILS % (AUTO) 0.2 % (0.0-2.0); EOSINOPHILS % (AUTO) 0.3 % (0.0-6.0); HEMATOCRIT 22 % (39-51); LYMPHOCYTES # (AUTO) 1.2 /CMM (0.8-4.8); MEAN CORPUSCULAR HGB CONC 31 g/dl (31.0-36.0); MEAN CORPUSCULAR VOLUME 90 fL (80-96); NEUTROPHILS % (AUTO) 90.5 % (43.0-81.0); PLATELET COUNT (AUTO) 500 /CMM (150-450); RED BLOOD CELL COUNT(AUTO) 2.43 MIL/uL (4.5-6.0); WHITE BLOOD COUNT (AUTO) 24.3 K/uL (4.3-11.0)
--- NOTE | 2019-09-24 06:47 | NUR ---
RN NOTE RECEIVED ALERT FOR CRITICAL LAB VALUE HGB 6.9. PAGED MD STAMPING DIE MAKER BENCH (TIMOTHY)
[2019-09-24 06:50] LABS: HEMOGLOBIN 6.9 g/dL (13.5-17.5)
[2019-09-24 06:54] LABS: BILIRUBIN,TOTAL 0.3 mg/dL (0.2-1.0); CALCIUM, SERUM 8.1 mg/dL (8.5-10.1); CREATININE 0.7 mg/dL (0.6-1.3); PHOSPHORUS 2.7 mg/dL (2.5-4.9); POTASSIUM 3.2 mmol/L (3.5-5.1); TOTAL PROTEIN, SERUM 5.9 g/dL (6.4-8.2)
--- NOTE | 2019-09-24 07:02 | NUR ---
RN NOTE MADE FOLLOW UP CALL WITH [facility] REGARDING CRITICAL LAB VALUE. AWAITING CALL BACK.
[2019-09-24 07:04] LABS: ALBUMIN 1.1 g/dL (3.4-5.0)
--- NOTE | 2019-09-24 07:12 | NUR ---
RN NOTE DOOR REPAIRER BUS FOR [facility] CALLED BACK ASKING IF TIMOTHY FLOREZ RETURNED CALL. RN EXPLAINED THAT MD HAS NOT CALLED BACK YET. PAGED ATTENDING HOSPITALIST. ENDORSED TO MORNING RN TO FOLLOW UP.
--- NOTE | 2019-09-24 08:00 | NUR ---
[facility] RN NOTE PATIENT IN BED WITH TRACH TO VENT SETTING ORDERED, ON TELE MONITOR ST HR 117, RT UA MID LINE IN PLCE BED IN LOWEST AND LOCKED POSITION, SEEN BY WOUND CARE NURSE WITH GTUBE FEEDING WITH RESIDUAL 60 ML ,WILL MONITOR ,KEEP HOB ELEVATED
[2019-09-24 08:28] LABS: BAND % (MANUAL) 1 % (0.0-5.0); LYMPHOCYTES % (MANUAL) 5 % (16-48); NEUTROPHILS % (MANUAL) 92 (42-76)
[2019-09-24 08:29] LABS: EOSINOPHILS % (MANUAL) 1 % (0-4); MONOCYTES % (MANUAL) 1 % (0-11.0)
--- NOTE | 2019-09-24 09:28 | NUR ---
LIMITED STUDY OF ARTERIAL DPLR OF LOWER EXT RECENTLY DONE LAST 08/23/2019 PT CONTRACTED. RN TO CONFIRM WITH NELSON CABRERAM ON EXAM.
--- NOTE | 2019-09-24 09:36 | NUR ---
WOUND CARE CONSULT: PT PRESENTS WITH MULTIPLE WOUNDS PRESENT ON ADMISSION. DR LIZZ LIM NOTIFIED OF READMISSION/SURGICAL CONSULT. FIRST STEP LOW AIRLOSS MATTRESS ORDERED. RECOMMENDATIONS MADE FOR SKIN PROTECTION AND WOUND CARE MADE AND DISCUSSED WITH NURSING STAFF. WILL SEE PRN. HERNANDEZ IN AGREEMENT WITH PLAN OF CARE. CURRENT ANYA SCORE IS 12. Addendum: 09/24/19 at 0938 by LEONIDES BORRERO Amended: Links added. Addendum: 09/24/19 at 0941 by LEONIDES RAYOU DEFER TO DPM CURRENTLY ON CASE FOR LOWER EXTREMITIES.
[2019-09-24] MEDS: FAMOTIDINE (20 MG) 20 MG TABLET GT SCH ×2 (09:40→16:55)
[2019-09-24] MEDS: AMIODARONE HCL 200 MG TABLET GT SCH ×3 (09:40→16:55)
[2019-09-24] MEDS: PANTOPRAZOLE 40 MG VIAL IV SCH (09:40)
[2019-09-24] MEDS: HYDROGEL DRESSING 90 GM TUBE TP SCH (09:40)
[2019-09-24] MEDS: SILVER SULFADIAZINE CREAM 25 GM TUBE TP SCH (09:41)
[2019-09-24] MEDS: DAKINS QUARTER STRENGTH (0.125%) 480 ML BOTTLE TOP SCH (09:41)
[2019-09-24] MEDS: POTASSIUM CHLORIDE 20 MEQ POWDER PACKET GT SCH ×2 (10:20→11:10)
--- NOTE | 2019-09-24 10:28 | NUR ---
DRAFTER GEOPHYSICAL NOTE DR OSORIO AT BEDSIDE AWARE T 99.0 FOR NOW ,WILL MONITOR
--- NOTE | 2019-09-24 11:05 | NUR ---
[facility] RN NOTE PER DR YUNG OK TO TRANSFER I UNIT PRBC SPOKE WITH SISTER CONSENT DONE
[2019-09-24] MEDS: VANCOMYCIN 1 GM in IV D5W 250ml IV SCH ×2 (11:09→23:57)
--- NOTE | 2019-09-24 13:30 | NUR ---
teletypewriter operator note blood not ready yet
[2019-09-24] MEDS: SOD FERRIC GLUC 125 MG in IV NS 0.9% 100 ML IV SCH (13:31)
--- NOTE | 2019-09-24 14:00 | NUR ---
SECURITY TEAM LEAD NOTE SPOKE WITH FOOT DR SCHULZ OK NOT REPEAT BOTH LEGS US ,STATED THAT WILL CHECK RESULT OF PREVIOUS US , WILL F\U
--- NOTE | 2019-09-24 15:51 | NUR ---
telecommunications equipment installer note kci matrass applied and wound cx done as ordered .for foot debridement will be done tomorrow per dr oliva
--- NOTE | 2019-09-24 16:30 | NUR ---
clerk television production note on blood transfusion no adverse reaction noted at this time ,will monitor
--- NOTE | 2019-09-24 16:49 | NUR ---
PER DR DAMON DON'T HAVE TO REPEAT THE LOWER EXT BILATERAL ARTERIAL EXAM THAT WAS DONE 08/23/2019.
[2019-09-24] MEDS: GLUCERNA 1.2 1,000 ML BOTTLE NG PRN (16:58)
--- NOTE | 2019-09-24 18:32 | NUR ---
SPA RECEPTIONIST NOTE CONT ON BLOOD TRANSFUSION, ALL NEEDS ATTENDED ,WITH TRACH TO VENT SETTING .CONT ON G TUE FEEDING ORDERED
--- NOTE | 2019-09-24 19:15 | NUR ---
SEMICONDUCTOR LAB TECHNICIAN OPENING NOTE RECEIVED PT ON BED OBTUNDED, ON VENT/TRACH TOLERATING SETTINGS WELL, RESPIRATIONS EVEN AND UNLABORED, NO SIGNS OF RESPIRATORY DISTRESS NOTED. ON TELE MONITOR SINUS TACHY 100'S . RIGHT UPPER ARM MIDLINE, INTACT, SECURED WITH CLEAN DRESSING. IV SITE ON LEFT WRIST G18 INTACT, ON PRBC TRANSFUSION STILL ONGOING TOLERATED WELL NO SIGN AND SYMPTOMS OF TRANSFUSION REACTION NOTED LOZADA CATH INTACT, PATENT, DRAINING CLEAR YELLOW URINE. G-TUBE INTACT, FLUSHING WELL. SAFETY MEASURE MAINTAINED BED IN LOW POSITION, LOCKED, CALL LIGHT WITHIN REACH.WILL CONT TO MONITOR THE PT
--- NOTE | 2019-09-24 19:35 | NUR ---
WINDOWS 7 DEPLOYMENT LEAD NOTES PRBC TRANSFUSION COMPLETED PT DIDNT MANIFEST ANY TRANSFUSION REACTION LATEST VITALS BP 155/96, TEMP 99.4, HR 100 RR 19, O2 SAT 100% ON VENT. WILL CONT TO MONITOR THE PT
[2019-09-24] MEDS: INSULIN GLARGINE, 100 UNIT/ML CARTRIDGE SQ SCH (21:46)
[2019-09-24] MEDS ORDERED: INSULIN DETEMIR 100 UNIT/ML CARTRIDGE SQ SCH (22:00)
--- NOTE | 2019-09-24 23:57 | NUR ---
TREE DRILLER NOTES VANCOMYCIN DOSE HELD DUE TO VANCO TROUGH OF 22 ug/ml
[2019-09-25] VITALS: BP 150/59
[2019-09-25] MEDS: BLOOD SUGAR DIAGNOSTIC 1 EACH STRIP IN SCH ×4 (00:04→18:05)
[2019-09-25] MEDS: IPRATROPIUM NEB FS 0.5 MG/2.5 ML AMPUL.NEB IH SCH ×4 (01:57→20:00)
[2019-09-25 04:00] VITALS: BP 162/75
[2019-09-25] MEDS: PIPERACILLIN /TAZOBACTAM 3.375 G in IV D5W 100 ML IV SCH ×3 (05:19→20:30)
[2019-09-25 06:22] LABS: BASOPHILS % (AUTO) 0.2 % (0.0-2.0); EOSINOPHILS % (AUTO) 1.1 % (0.0-6.0); HEMATOCRIT 28 % (39-51); LYMPHOCYTES # (AUTO) 1.6 /CMM (0.8-4.8); LYMPHOCYTES % (AUTO) 10.4 % (20.0-44.0); MEAN CORPUSCULAR HGB CONC 32 g/dl (31.0-36.0); MEAN CORPUSCULAR VOLUME 90 fL (80-96); MONOCYTES # (AUTO) 0.8 /CMM (0.1-1.30); MONOCYTES % (AUTO) 5.5 % (2.0-12.0); NEUTROPHILS # (AUTO) 12.6 /CMM (1.8-8.9); NEUTROPHILS % (AUTO) 82.8 % (43.0-81.0); PLATELET COUNT (AUTO) 468 /CMM (150-450); RED BLOOD CELL COUNT(AUTO) 3.14 MIL/uL (4.5-6.0); WHITE BLOOD COUNT (AUTO) 15.2 K/uL (4.3-11.0)
[2019-09-25 07:12] LABS: CALCIUM, SERUM 8.8 mg/dL (8.5-10.1); CREATININE 0.7 mg/dL (0.6-1.3); POTASSIUM 3.9 mmol/L (3.5-5.1)
[2019-09-25] MEDS: IPRATROPIUM NEB FS 0.5 MG/2.5 ML AMPUL.NEB NEB SCH ×2 (07:17→13:30)
[2019-09-25 07:59] LABS: OCCULT BLOOD STOOL NEGATIVE (NEGATIVE)
[2019-09-25 08:00] VITALS: BP 161/57
[2019-09-25] MEDS: GLUCERNA 1.2 1,000 ML BOTTLE NG PRN (10:17)
[2019-09-25] MEDS: PANTOPRAZOLE 40 MG VIAL IV SCH (10:56)
[2019-09-25] MEDS: FAMOTIDINE (20 MG) 20 MG TABLET GT SCH ×2 (10:57→18:07)
[2019-09-25] MEDS: AMIODARONE HCL 200 MG TABLET GT SCH ×3 (10:57→17:50)
[2019-09-25] MEDS: DAKINS QUARTER STRENGTH (0.125%) 480 ML BOTTLE TOP SCH (11:15)
[2019-09-25] MEDS: HYDROGEL DRESSING 90 GM TUBE TP SCH (11:15)
[2019-09-25] MEDS: SILVER SULFADIAZINE CREAM 25 GM TUBE TP SCH (11:16)
[2019-09-25 12:00] VITALS: BP 150/62
[2019-09-25] MEDS: VANCOMYCIN 0.75 GM in IV D5W 250 ML IV SCH (13:15)
[2019-09-25 16:00] VITALS: BP 133/61
--- NOTE | 2019-09-25 18:00 | NUR ---
received pt. non verbal,on vent.settings unchanged.turned q 2hrs.extensive dressing chgs done.tube feeding infusing with no residual.psuministrado in for jared campo. wd debridement.
[2019-09-25] MEDS ORDERED: SILVER NITRATE APPLICATOR 1 EA BOX TP ONE (18:30)
--- NOTE | 2019-09-25 18:30 | NUR ---
see bglevels in computer.pt. not on sl scale.
[2019-09-25] MEDS: SOD FERRIC GLUC 125 MG in IV NS 0.9% 100 ML IV SCH (18:44)
--- NOTE | 2019-09-25 19:10 | NUR ---
BINDING CEMENTER FRENCH CORD OPENING NOTE RECEIVED PT ON BED OBTUNDED, ON VENT/TRACH TOLERATING SETTINGS WELL, RESPIRATIONS EVEN AND UNLABORED, NO SIGNS OF RESPIRATORY DISTRESS NOTED. ON TELE MONITOR SINUS TACHY 100'S . RIGHT UPPER ARM MIDLINE, INTACT, SECURED WITH CLEAN DRESSING. IV SITE ON LEFT WRIST G18 INTACT,LOZADA CATH INTACT, PATENT, DRAINING CLEAR YELLOW URINE. G-TUBE INTACT, FLUSHING WELL. SAFETY MEASURE MAINTAINED BED IN LOW POSITION, LOCKED, CALL LIGHT WITHIN REACH.WILL CONT TO MONITOR THE PT
[2019-09-25 20:00] VITALS: BP 173/74
--- NOTE | 2019-09-25 20:45 | NUR ---
RT NOTE PT RECEIVED TRACHED ON MECHANICAL VENTILATION. AMBU BAG @ BEDSIDE. PORTEX [address] TX GIVEN, NO ADVERSE REACTIONS NOTED. SX DONE, TRACH SECURED AND PATENT. ALARMS ON AND AUDIBLE. NO DISTRESS NOTED. WILL MONITOR T/O SHIFT. CONT. PULSE OX CONNECTED. Addendum: 09/25/19 at 2046 by VERONICA COBB RT Amended: Links added.
[2019-09-25] MEDS: INSULIN GLARGINE, 100 UNIT/ML CARTRIDGE SQ SCH (21:31)
[2019-09-25] MEDS: CLONIDINE HCL 0.1 MG TABLET GT PRN (22:05)
[2019-09-26] VITALS (7 sets, daily range): BP systolic 128–181; BP diastolic 55–79
[2019-09-26] MEDS: VANCOMYCIN 0.75 GM in IV D5W 250 ML IV SCH ×2 (00:14→12:33)
[2019-09-26] MEDS: BLOOD SUGAR DIAGNOSTIC 1 EACH STRIP IN SCH ×5 (00:14→23:16)
[2019-09-26] MEDS: IPRATROPIUM NEB FS 0.5 MG/2.5 ML AMPUL.NEB IH SCH ×4 (02:09→19:44)
[2019-09-26] MEDS: GLUCERNA 1.2 1,000 ML BOTTLE NG PRN ×2 (02:46→15:47)
[2019-09-26] MEDS: PIPERACILLIN /TAZOBACTAM 3.375 G in IV D5W 100 ML IV SCH ×2 (05:03→13:39)
[2019-09-26 06:21] LABS: BASOPHILS # (AUTO) 0.1 /CMM (0.0-0.2); BASOPHILS % (AUTO) 0.3 % (0.0-2.0); EOSINOPHILS % (AUTO) 1.6 % (0.0-6.0); HEMATOCRIT 26 % (39-51); HEMOGLOBIN 8.2 g/dL (13.5-17.5); LYMPHOCYTES # (AUTO) 1.5 /CMM (0.8-4.8); LYMPHOCYTES % (AUTO) 9.4 % (20.0-44.0); MEAN CORPUSCULAR HGB CONC 32 g/dl (31.0-36.0); MEAN CORPUSCULAR VOLUME 90 fL (80-96); MONOCYTES # (AUTO) 0.9 /CMM (0.1-1.30); MONOCYTES % (AUTO) 5.9 % (2.0-12.0); NEUTROPHILS # (AUTO) 13.3 /CMM (1.8-8.9); NEUTROPHILS % (AUTO) 82.8 % (43.0-81.0); PLATELET COUNT (AUTO) 462 /CMM (150-450); RED BLOOD CELL COUNT(AUTO) 2.87 MIL/uL (4.5-6.0); WHITE BLOOD COUNT (AUTO) 16.1 K/uL (4.3-11.0)
[2019-09-26 06:42] LABS: CALCIUM, SERUM 8.1 mg/dL (8.5-10.1); CREATININE 0.7 mg/dL (0.6-1.3); POTASSIUM 3.6 mmol/L (3.5-5.1)
--- NOTE | 2019-09-26 07:33 | NUR ---
PHYSICAL THERAPY AID CLOSING NOTES PT ON STABLE CONDITION STILL ON VENT SETTING PER MD NO SIGN AND SYMPTOMS OF RESPIRATORY DISTRESS NO PAIN NOTED, ON TELE MONITOR WITH READING SR 80'S ON GTUBE FEEDING PATENT AND NO RESIDUAL, WOUND TREATMENT WAS DONE ORDERED, NO SIGNIFICANT CHANGES ON CONDITION NOTED ALL NEEDS ATTENDED SAFETY MEASURE MAINTAINED, BED ON LOWEST POSITION AND LOCKED, SIDE RAILS UP X3, CALL LIGHT WITHIN REACH WILL ENDORSE TO AM SHIFT RN
--- NOTE | 2019-09-26 07:33 | NUR ---
PRODUCT TESTER FIBERGLASS CLOSING NOTES PT ON STABLE CONDITION STILL ON VENT SETTING PER MD NO SIGN AND SYMPTOMS OF RESPIRATORY DISTRESS NO PAIN NOTED, ON TELE MONITOR WITH READING SR 80'S ON GTUBE FEEDING PATENT AND NO RESIDUAL, WOUND TREATMENT WAS DONE ORDERED, NO SIGNIFICANT CHANGES ON CONDITION NOTED ALL NEEDS ATTENDED SAFETY MEASURE MAINTAINED, BED ON LOWEST POSITION AND LOCKED, SIDE RAILS UP X3, CALL LIGHT WITHIN REACH. PLT 44 ENDORSE TO AM SHIFT NURSE DR. GARVEY ALSO MADE AWARE Addendum: 09/26/19 at 0735 by ZACHARY TATE RN WRONG PT
[2019-09-26] MEDS: FAMOTIDINE (20 MG) 20 MG TABLET GT SCH ×2 (09:40→17:08)
[2019-09-26] MEDS: PANTOPRAZOLE 40 MG VIAL IV SCH (09:40)
[2019-09-26] MEDS: SILVER SULFADIAZINE CREAM 25 GM TUBE TP SCH (09:47)
[2019-09-26] MEDS: DAKINS QUARTER STRENGTH (0.125%) 480 ML BOTTLE TOP SCH (09:47)
[2019-09-26] MEDS: HYDROGEL DRESSING 90 GM TUBE TP SCH (09:48)
[2019-09-26] MEDS: AMIODARONE HCL 200 MG TABLET GT SCH ×3 (09:52→17:09)
--- NOTE | 2019-09-26 12:35 | NUR ---
RN OPENING NOTE RECEIVED PT ASLEEP IN BED HOB ELEVATED. APPEARS RELAXED AND CALM. NO SIGNS OF DISTRESS. PT IS OBTUNDED. PT IS ON TRACH AND VENT. OBTUNDED. TELE READING SR. ON A GT FEEDING TOLERATING WELL. GT IN PLACE AND PATENT. NO RESIDUAL. PT IS CONTRACTED ON LOWER EXTREMITIES. ON LOZADA CATHETER. PATENT DRAINING CLEAR YELLOW URINE BY GRAVITY. SAFETY MEASURES REINFORCED. BED ON LOWEST AND LOCKED POSITION. CALL LIGHT WITHIN REACH. WILL CONT TO MONITOR.
[2019-09-26] MEDS: SOD FERRIC GLUC 125 MG in IV NS 0.9% 100 ML IV SCH (15:01)
--- NOTE | 2019-09-26 15:31 | NUR ---
telecommunications facility examiner note turn reposition .on g tub feeding tolerated well .will cont to monitor
--- NOTE | 2019-09-26 17:22 | NUR ---
RN NOTE WOUND DEBRIDEMENT DONE BY WOUND NURSE MARCIA ON SACRO, LEFT AND RIGHT HIP. TOLERATED WELL. WOUND CULTURE SPECIMEN COLLECTED BY HER.
[2019-09-26] MEDS: CLONIDINE HCL 0.1 MG TABLET GT PRN (18:18)
--- NOTE | 2019-09-26 18:38 | NUR ---
RN CLOSING NOTE PT IS ASLEEP IN BED. NO SIGNS OF DISTRESS. ON TRACH AND VENT TOLERATING WELL. ON LOZADA CATH DRAINING CLEAR JEFFRY URINE BY GRAVITY. ON GT FEEDING RUNNING AT 65CC/HR TOLERATING WELL. NO RESIDUAL NOTED. NO SIGNS OF PAIN OR DISCOMFORT. MIDLINE ON R UPPER ARM IN PLACE AND PATENT. VITAL SIGNS WITHIN NORMAL LIMITS. SAFETY MEASURES IMPLEMENTED. CALL LIGHT WITHIN REACH. BED ON LOWEST AND LOCKED POSITION.. WILL ENDORSE TO NEXT SHIFT.
--- NOTE | 2019-09-26 19:20 | NUR ---
RN CLOSING NOTE ENDORSED TO GLOVE TURNER FOR LEONCIO.
--- NOTE | 2019-09-26 20:00 | NUR ---
CABLE TELEVISION ACCESS COORDINATOR NOTES. RECEIVED PT IN BED OBTUNDED, ON VENT/TRACH SETTINGS AC WELL TOLERATED ,NO SOB NO DISTRESS NOTED. RESPIRATIONS EVEN AND UNLABORED, ON TELE MONITOR SR-73. RIGHT UPPER ARM MIDLINE,S/P DEBRIDEMENT DRESSING DRY NO BLEEDING NOTED . INTACT AND PATENT .LOZADA CATH INTACT, PATENT, DRAINING CLEAR YELLOW URINE. G-TUBE GLUCERNA 1.2 AT 65CC/HR NO RESIDUAL NOTED . HOB ELEVATED AT ALL TIMES FOR ASPIRATION PRECAUTION ,V/S STABLE AFEBRILE ,SAFETY MEASURE MAINTAINED BED IN LOW POSITION, LOCKED, CALL LIGHT WITHIN REACH.WILL CONT TO MONITOR THE PT .
[2019-09-26] MEDS: PIPERACILLIN /TAZOBACTAM 4.5 G in IV D5W 50 ML IV SCH (22:20)
[2019-09-26] MEDS: INSULIN GLARGINE, 100 UNIT/ML CARTRIDGE SQ SCH (23:12)
--- NOTE | 2019-09-26 23:20 | NUR ---
HEALTH INFORMATION INTERNSHIP NOTES BLOOD SUGAR OF 187 MMOL/DL LANTUS 13 UNITS GIVEN ORDERED , PT ON GLUCERNA 1.2 AT 65CC/HR WILL CHECK BS AGAIN AT 6AM.
[2019-09-27] VITALS (7 sets, daily range): BP systolic 135–160; BP diastolic 57–86
[2019-09-27] MEDS: VANCOMYCIN 0.75 GM in IV D5W 250 ML IV SCH ×2 (00:23→13:47)
[2019-09-27] MEDS: IPRATROPIUM NEB FS 0.5 MG/2.5 ML AMPUL.NEB IH SCH ×4 (01:08→20:20)
[2019-09-27] MEDS: PIPERACILLIN /TAZOBACTAM 4.5 G in IV D5W 50 ML IV SCH ×4 (04:47→22:35)
--- NOTE | 2019-09-27 06:00 | NUR ---
SHOWROOM SALES ASSISTANT NOTES. BLOOD SUGAR AT 6AM IS 164 MMOL/DL NO INSULIN COVERAGE GIVEN ,PTS REMAINS ON VENT AC SETTING WELL TOLERATED ,WILL ENDORSE TO RN DAY SHIFT FOR CONTINUITY OF CARE.
[2019-09-27] MEDS: BLOOD SUGAR DIAGNOSTIC 1 EACH STRIP IN SCH ×3 (06:24→17:52)
[2019-09-27 06:54] LABS: BASOPHILS % (AUTO) 0.3 % (0.0-2.0); CALCIUM, SERUM 8.1 mg/dL (8.5-10.1); CREATININE 0.7 mg/dL (0.6-1.3); EOSINOPHILS % (AUTO) 2.3 % (0.0-6.0); HEMATOCRIT 28 % (39-51); HEMOGLOBIN 8.8 g/dL (13.5-17.5); LYMPHOCYTES # (AUTO) 1.4 /CMM (0.8-4.8); LYMPHOCYTES % (AUTO) 10.9 % (20.0-44.0); MEAN CORPUSCULAR HGB CONC 32 g/dl (31.0-36.0); MEAN CORPUSCULAR VOLUME 90 fL (80-96); MONOCYTES # (AUTO) 0.7 /CMM (0.1-1.30); MONOCYTES % (AUTO) 5.6 % (2.0-12.0); NEUTROPHILS # (AUTO) 10.1 /CMM (1.8-8.9); NEUTROPHILS % (AUTO) 80.9 % (43.0-81.0); PLATELET COUNT (AUTO) 458 /CMM (150-450); POTASSIUM 4.3 mmol/L (3.5-5.1); RED BLOOD CELL COUNT(AUTO) 3.06 MIL/uL (4.5-6.0); WHITE BLOOD COUNT (AUTO) 12.5 K/uL (4.3-11.0)
[2019-09-27] MEDS: FAMOTIDINE (20 MG) 20 MG TABLET GT SCH ×2 (10:17→17:51)
[2019-09-27] MEDS: FUROSEMIDE 40 MG/4 ML VIAL IV SCH ×3 (10:17→17:52)
[2019-09-27] MEDS: PANTOPRAZOLE 40 MG VIAL IV SCH (10:17)
[2019-09-27] MEDS: AMIODARONE HCL 200 MG TABLET GT SCH ×3 (10:17→17:51)
[2019-09-27] MEDS: HYDROGEL DRESSING 90 GM TUBE TP SCH (10:43)
[2019-09-27] MEDS: DAKINS QUARTER STRENGTH (0.125%) 480 ML BOTTLE TOP SCH (10:43)
[2019-09-27] MEDS: SILVER SULFADIAZINE CREAM 25 GM TUBE TP SCH (10:43)
[2019-09-27] MEDS: GLUCERNA 1.2 1,000 ML BOTTLE NG PRN (12:17)
[2019-09-27] MEDS: SOD FERRIC GLUC 125 MG in IV NS 0.9% 100 ML IV SCH (16:22)
[2019-09-27] MEDS: SULFAMETH/TRIMETH 800/160 MG 1 UDTAB TABLET GT SCH (17:51)
[2019-09-27] MEDS ORDERED: SULFAMEHOX/TRIMETH 200-40MG/ 5 ML UDC GT SCH (18:00)
--- NOTE | 2019-09-27 19:20 | NUR ---
RN OPENING NOTES RECEIVED PATIENT IN BED, OBTUNDED. ON TELE MONITOR SR WITH HR 80'S. ON MECHANICAL VENT SETTINGS ORDERED, TOLERATING WELL, NO SOB OR RESPIRATORY DISTRESS NOTED, SATURATING 100%. RIGHT UPPER ARM MIDLINE, FLUSHING AND INTACT, S/L. S/P BILATERAL HEEL DEBRIDEMENT DRESSING INTACT. LOZADA CATH INTACT AND DRAINING CLEAR YELLOW URINE. G-TUBE RUNNING ORDERED, MINIMAL RESIDUAL NOTED. HOB ELEVATED AT ALL TIMES FOR ASPIRATION PRECAUTION. SAFETY MEASURES IN PLACE; CALL LIGHT WITHIN REACH, SR UP X2, BED LOCKED AND IN LOW POSITION. WILL CONT TO MONITOR PT CLOSELY.
[2019-09-27] MEDS: CLONIDINE HCL 0.1 MG TABLET GT PRN (20:50)
--- NOTE | 2019-09-27 22:00 | NUR ---
RN NOTES PATIENT SBP 160 AT 1999, PRN CLONIDINE 0.1 MG VIA GT GIVEN, RECHECKED BP NOW 113/79. WILL CONT TO MONITOR PATIENT CLOSELY.
[2019-09-27] MEDS: INSULIN GLARGINE, 100 UNIT/ML CARTRIDGE SQ SCH (22:32)
[2019-09-28] VITALS: BP 130/54
[2019-09-28] MEDS: BLOOD SUGAR DIAGNOSTIC 1 EACH STRIP IN SCH ×4 (00:30→17:33)
[2019-09-28] MEDS: VANCOMYCIN 0.75 GM in IV D5W 250 ML IV SCH ×3 (00:35→23:00)
[2019-09-28] MEDS: IPRATROPIUM NEB FS 0.5 MG/2.5 ML AMPUL.NEB IH SCH ×4 (01:49→19:10)
[2019-09-28] MEDS: GLUCERNA 1.2 1,000 ML BOTTLE NG PRN (03:41)
[2019-09-28 04:00] VITALS: BP 129/56
[2019-09-28] MEDS: PIPERACILLIN /TAZOBACTAM 4.5 G in IV D5W 50 ML IV SCH ×4 (05:26→22:00)
[2019-09-28] MEDS: SULFAMETH/TRIMETH 800/160 MG 1 UDTAB TABLET GT SCH ×2 (05:26→17:33)
[2019-09-28 07:27] LABS: BASOPHILS % (AUTO) 0.3 % (0.0-2.0); EOSINOPHILS % (AUTO) 2.1 % (0.0-6.0); HEMATOCRIT 26 % (39-51); HEMOGLOBIN 8.6 g/dL (13.5-17.5); LYMPHOCYTES # (AUTO) 1.3 /CMM (0.8-4.8); LYMPHOCYTES % (AUTO) 9.2 % (20.0-44.0); MEAN CORPUSCULAR HGB CONC 33 g/dl (31.0-36.0); MEAN CORPUSCULAR VOLUME 90 fL (80-96); MONOCYTES % (AUTO) 7.1 % (2.0-12.0); NEUTROPHILS # (AUTO) 11.5 /CMM (1.8-8.9); NEUTROPHILS % (AUTO) 81.3 % (43.0-81.0); PLATELET COUNT (AUTO) 439 /CMM (150-450); WHITE BLOOD COUNT (AUTO) 14.2 K/uL (4.3-11.0)
--- NOTE | 2019-09-28 07:35 | NUR ---
rn opening note: Received patient in bed awake. On mechanical ventilation and tolerating prescribed settings well. No SOB and no respiratory distress noted. Patient on droplet and contact precautions and strictly observed by staff. No pain noted on patient. IV sites clean, dry, patent and intact. Adams catheter in place with yellow urine noted. GT feeding being tolerated well with no residual. call light in reach. Side rails up x3. Bed locked, low and at semi-kuo's position. safety ensured and observed. will continue to monitor.
[2019-09-28 07:39] LABS: ALANINE AMINOTRANSFERASE < 6 U/L (12-78); ALKALINE PHOSPHATASE 135 U/L (46-116); ASPARTATE AMINOTRANSFERASE 13 U/L (15-37); BILIRUBIN,TOTAL 0.2 mg/dL (0.2-1.0); CALCIUM, SERUM 8.2 mg/dL (8.5-10.1); CARBON DIOXIDE 29 mmol/L (21-32); CHLORIDE 103 mmol/L (98-107); CREATININE 0.8 mg/dL (0.6-1.3); GLUCOSE 132 mg/dL (74-106); MAGNESIUM 1.5 mg/dL (1.8-2.4); PHOSPHORUS 3.4 mg/dL (2.5-4.9); POTASSIUM 4.1 mmol/L (3.5-5.1); TOTAL PROTEIN, SERUM 5.9 g/dL (6.4-8.2); UREA NITROGEN, BLOOD 21 mg/dL (7-18)
--- NOTE | 2019-09-28 07:47 | NUR ---
RN CLOSING NOTES PATIENT RESTING IN BED. NO ACUTE CHANGES THROUGHOUT SHIFT. ON TELE MONITOR SR WITH HR 70'S. ON MECHANICAL VENT SETTINGS ORDERED, TOLERATING WELL, NO SOB OR RESPIRATORY DISTRESS NOTED, SATURATING 100%. IV SITE FLUSHING AND INTACT, SALINE LOCKED. GTUBE PATENT AND INTACT GTF RUNNING ORDERED, MINIMAL RESIDUAL NOTED. FC DRAINING VIA GRAVITY WITH YELLOW URINE DRAINING. KEPT PT CLEAN, DRY, AND COMFORTABLE. ALL MD ORDERS ATTENDED. SAFETY MEASURES MAINTAINED. ENDORSED TO AM RN FOR LEONCIO.
[2019-09-28 07:53] LABS: ALBUMIN 1.1 g/dL (3.4-5.0); SODIUM SERUM 138 mmol/L (136-145)
[2019-09-28 08:00] VITALS: BP_SYST 125; BP_DIAS 51; BP_DIAS 63
[2019-09-28] MEDS: FAMOTIDINE (20 MG) 20 MG TABLET GT SCH ×2 (09:01→17:31)
[2019-09-28] MEDS: PANTOPRAZOLE 40 MG VIAL IV SCH (09:01)
[2019-09-28] MEDS: DAKINS QUARTER STRENGTH (0.125%) 480 ML BOTTLE TOP SCH (09:02)
[2019-09-28] MEDS: SILVER SULFADIAZINE CREAM 25 GM TUBE TP SCH (09:02)
[2019-09-28] MEDS: AMIODARONE HCL 200 MG TABLET GT SCH ×3 (09:02→17:32)
[2019-09-28] MEDS: HYDROGEL DRESSING 90 GM TUBE TP SCH (09:02)
[2019-09-28] MEDS: FUROSEMIDE 40 MG/4 ML VIAL IV SCH ×3 (09:27→17:35)
[2019-09-28] MEDS: Magnesium 1GM/D5W 100ML PREMIX 100 ML IV SCH ×2 (09:27→14:02)
[2019-09-28 12:00] VITALS: BP_SYST 136; BP_DIAS 52; BP_DIAS 62
[2019-09-28] MEDS: SOD FERRIC GLUC 125 MG in IV NS 0.9% 100 ML IV SCH (14:02)
[2019-09-28 16:00] VITALS: BP_SYST 150; BP_DIAS 57; BP_DIAS 63
--- NOTE | 2019-09-28 17:30 | NUR ---
rn note: reported to Dr. bryant that patient was observed to have 1 episode of seizure without loss of consciousness. No hx of seizure on H&P and no home meds for anti seizure reported. awaiting response.
--- NOTE | 2019-09-28 19:10 | NUR ---
rn closing note: Patient still in bed and awake. Tolerating mech vent settings well. No SOB nor respiratory distress noted. No pain noted on patient. IV sites clean, dry, patent and intact. Adams catheter in place. Gtube in place and feeding tolerated well. Call light in reach. Side rails up x3. Bed locked, low and at semi-kuo's position. safety ensured and observed. Endorsed to oncoming shift for LEONCIO.
[2019-09-28 20:00] VITALS: BP 137/54
[2019-09-28] MEDS: INSULIN GLARGINE, 100 UNIT/ML CARTRIDGE SQ SCH (21:16)
--- NOTE | 2019-09-28 23:39 | NUR ---
RN NOTE NOTED WITH BLOOD SUGAR 202. PAGED DR. GARVEY WITH ORDER TO DO MODERATE INSULIN SLIDING SCALE.
[2019-09-28] MEDS: INSULIN REGULAR, HUMAN 100 UNIT/ML 3 ML VIAL SQ PRN (23:57)
[2019-09-29] VITALS: BP 133/54
[2019-09-29] MEDS ORDERED: DEXTROSE 50%-WATER 50 ML DISP.SYRIN IV PRN
[2019-09-29] MEDS: IPRATROPIUM NEB FS 0.5 MG/2.5 ML AMPUL.NEB IH SCH ×4 (00:50→19:19)
[2019-09-29] MEDS: GLUCERNA 1.2 1,000 ML BOTTLE NG PRN ×2 (03:17→15:06)
[2019-09-29 04:00] VITALS: BP 139/55
[2019-09-29] MEDS: PIPERACILLIN /TAZOBACTAM 4.5 G in IV D5W 50 ML IV SCH ×4 (04:01→22:19)
[2019-09-29] MEDS: BLOOD SUGAR DIAGNOSTIC 1 EACH STRIP IN SCH ×4 (05:00→18:21)
[2019-09-29] MEDS: SULFAMETH/TRIMETH 800/160 MG 1 UDTAB TABLET GT SCH ×2 (05:00→18:25)
[2019-09-29] MEDS: INSULIN REGULAR, HUMAN 100 UNIT/ML 3 ML VIAL SQ PRN ×3 (05:07→18:48)
[2019-09-29 06:51] LABS: BASOPHILS % (AUTO) 0.3 % (0.0-2.0); EOSINOPHILS % (AUTO) 1.8 % (0.0-6.0); HEMATOCRIT 27 % (39-51); HEMOGLOBIN 8.6 g/dL (13.5-17.5); LYMPHOCYTES # (AUTO) 1.7 /CMM (0.8-4.8); LYMPHOCYTES % (AUTO) 14.4 % (20.0-44.0); MEAN CORPUSCULAR HGB CONC 32 g/dl (31.0-36.0); MEAN CORPUSCULAR VOLUME 90 fL (80-96); MONOCYTES % (AUTO) 8.5 % (2.0-12.0); NEUTROPHILS # (AUTO) 8.7 /CMM (1.8-8.9); PLATELET COUNT (AUTO) 491 /CMM (150-450); WHITE BLOOD COUNT (AUTO) 11.7 K/uL (4.3-11.0)
[2019-09-29 07:00] LABS: ALANINE AMINOTRANSFERASE < 6 U/L (12-78); ALKALINE PHOSPHATASE 136 U/L (46-116); ASPARTATE AMINOTRANSFERASE 12 U/L (15-37); BILIRUBIN,TOTAL 0.3 mg/dL (0.2-1.0); CARBON DIOXIDE 31 mmol/L (21-32); CHLORIDE 99 mmol/L (98-107); GLUCOSE 154 mg/dL (74-106); MAGNESIUM 1.7 mg/dL (1.8-2.4); PHOSPHORUS 3.6 mg/dL (2.5-4.9); POTASSIUM 4.2 mmol/L (3.5-5.1); SODIUM SERUM 135 mmol/L (136-145); TOTAL PROTEIN, SERUM 6.1 g/dL (6.4-8.2); UREA NITROGEN, BLOOD 24 mg/dL (7-18)
[2019-09-29 07:17] LABS: ALBUMIN 1.1 g/dL (3.4-5.0)
--- NOTE | 2019-09-29 07:38 | NUR ---
RN NOTE ALL NEEDS MET AND ATTENDED TO. PT WITHOUT INDICATIONS OF DISTRESS OR DISCOMFORT. ENDORSED TO MORNING RN FOR CONTINUATION OF CARE.
[2019-09-29 08:00] VITALS: BP 134/53
--- NOTE | 2019-09-29 09:20 | NUR ---
RN TELE1 PROVIDER RAISSA BUSH IS AWARE OF ALBUMIN 1.1 -
[2019-09-29] MEDS: SILVER SULFADIAZINE CREAM 25 GM TUBE TP SCH (09:32)
[2019-09-29] MEDS: PANTOPRAZOLE 40 MG VIAL IV SCH (09:32)
[2019-09-29] MEDS: FAMOTIDINE (20 MG) 20 MG TABLET GT SCH ×2 (09:32→18:20)
[2019-09-29] MEDS: AMIODARONE HCL 200 MG TABLET GT SCH ×3 (09:32→18:20)
[2019-09-29] MEDS: HYDROGEL DRESSING 90 GM TUBE TP SCH (09:32)
[2019-09-29] MEDS: DAKINS QUARTER STRENGTH (0.125%) 480 ML BOTTLE TOP SCH (09:32)
[2019-09-29] MEDS: FUROSEMIDE 40 MG/4 ML VIAL IV SCH ×3 (10:35→18:21)
[2019-09-29] MEDS: Magnesium 1GM/D5W 100ML PREMIX 100 ML IV SCH ×2 (10:35→11:35)
[2019-09-29 12:00] VITALS: BP 141/56
[2019-09-29] MEDS: VANCOMYCIN 0.75 GM in IV D5W 250 ML IV SCH (13:42)
[2019-09-29] MEDS: ALBUMIN 25% 25 GM in PREMIX 1 EA IV SCH ×2 (14:50→18:50)
[2019-09-29 16:00] VITALS: BP 148/56
[2019-09-29] MEDS: LINEZOLID RTU BAG 600 MG in PREMIX 1 EA IV SCH ×2 (16:51→18:20)
--- NOTE | 2019-09-29 19:19 | NUR ---
RT NOTES PT RECEIVED TRACHED ON [facility] VENT ON CHARTED SETTINGS BELOW. NO SIGNS OF DISTRESS/SOB NOTED. AIRWAY PATENT AND SECURED. MACHINE JOINER CEMENTER DONE. PT SUCTIONED. ALARMS SET AND AUDIBLE. AMBUBAG AND SPARE TRACH AT BEDSIDE. VENT CONNECTED TO RED OUTLET. WILL CONT TO MONITOR. Addendum: 09/29/19 at 1932 by MONSE MCCALLUM RT Amended: Links added.
[2019-09-29 20:00] VITALS: BP 154/56
[2019-09-29] MEDS: INSULIN GLARGINE, 100 UNIT/ML CARTRIDGE SQ SCH (22:18)
[2019-09-30] VITALS: BP 143/58
[2019-09-30] MEDS: BLOOD SUGAR DIAGNOSTIC 1 EACH STRIP IN SCH ×5 (00:29→23:02)
[2019-09-30] MEDS: ALBUMIN 25% 25 GM in PREMIX 1 EA IV SCH ×2 (00:29→06:53)
[2019-09-30] MEDS: INSULIN REGULAR, HUMAN 100 UNIT/ML 3 ML VIAL SQ PRN ×4 (00:31→23:04)
[2019-09-30] MEDS: IPRATROPIUM NEB FS 0.5 MG/2.5 ML AMPUL.NEB IH SCH ×4 (01:21→20:13)
[2019-09-30 04:00] VITALS: BP 152/54
[2019-09-30] MEDS: PIPERACILLIN /TAZOBACTAM 4.5 G in IV D5W 50 ML IV SCH ×4 (05:57→23:08)
[2019-09-30] MEDS: SULFAMETH/TRIMETH 800/160 MG 1 UDTAB TABLET GT SCH ×2 (05:59→17:27)
[2019-09-30 06:38] LABS: BASOPHILS % (AUTO) 0.2 % (0.0-2.0); EOSINOPHILS % (AUTO) 1.2 % (0.0-6.0); HEMATOCRIT 24 % (39-51); HEMOGLOBIN 7.9 g/dL (13.5-17.5); LYMPHOCYTES # (AUTO) 1.5 /CMM (0.8-4.8); LYMPHOCYTES % (AUTO) 12.1 % (20.0-44.0); MEAN CORPUSCULAR HGB CONC 33 g/dl (31.0-36.0); MEAN CORPUSCULAR VOLUME 89 fL (80-96); NEUTROPHILS # (AUTO) 9.5 /CMM (1.8-8.9); NEUTROPHILS % (AUTO) 78.5 % (43.0-81.0); PLATELET COUNT (AUTO) 462 /CMM (150-450); RED BLOOD CELL COUNT(AUTO) 2.74 MIL/uL (4.5-6.0); WHITE BLOOD COUNT (AUTO) 12.1 K/uL (4.3-11.0)
[2019-09-30 06:59] LABS: ALBUMIN 2.1 g/dL (3.4-5.0); BILIRUBIN,TOTAL 0.4 mg/dL (0.2-1.0); CALCIUM, SERUM 8.7 mg/dL (8.5-10.1); CREATININE 0.9 mg/dL (0.6-1.3); PHOSPHORUS 3.4 mg/dL (2.5-4.9); TOTAL PROTEIN, SERUM 6.6 g/dL (6.4-8.2)
--- NOTE | 2019-09-30 07:30 | NUR ---
RN OPENING NOTE RECEIVED PT ASLEEP IN BED ON VENT SUPPORT NO SIGNS OF DISTRESS. GT IN PLACE AND PATENT WITH FEEDING RUNNING. TELE READING SR. NO SIGNS OF PAIN OR DISCOMFORT. PT IS OBTUNDED. PT HAS MALATHI MIDLINE. PATENT RUNNING ALBUMIN IV DRIP. GT FEEDING RUNNING. BOWEL SOUNDS PRESENT. NO RESIDUAL. SAFETY MEASURES IMPLEMENTED. BED ON LOWEST AND LOCKED POSITION. CALL LIGHT WITHIN REACH. WILL CONT TO MONITOR.
[2019-09-30 08:00] VITALS: BP_SYST 152; BP_DIAS 53; BP_DIAS 57
[2019-09-30] MEDS: FAMOTIDINE (20 MG) 20 MG TABLET GT SCH ×2 (09:56→17:29)
[2019-09-30] MEDS: AMIODARONE HCL 200 MG TABLET GT SCH ×3 (09:56→17:28)
[2019-09-30] MEDS: PANTOPRAZOLE 40 MG VIAL IV SCH (09:56)
[2019-09-30] MEDS: FUROSEMIDE 40 MG/4 ML VIAL IV SCH ×3 (10:04→17:27)
[2019-09-30] MEDS: HYDROGEL DRESSING 90 GM TUBE TP SCH (10:16)
[2019-09-30 12:00] VITALS: BP 158/56
[2019-09-30] MEDS: SILVER SULFADIAZINE CREAM 25 GM TUBE TP SCH (13:33)
[2019-09-30] MEDS: DAKINS QUARTER STRENGTH (0.125%) 480 ML BOTTLE TOP SCH (13:33)
[2019-09-30] MEDS: LINEZOLID RTU BAG 600 MG in PREMIX 1 EA IV SCH (13:33)
[2019-09-30] MEDS: GLUCERNA 1.2 1,000 ML BOTTLE NG PRN (15:14)
[2019-09-30 16:00] VITALS: BP 168/60
--- NOTE | 2019-09-30 18:57 | NUR ---
RN CLOSING NOTE PT IS IN BED HOB ELEVATED. NO SIGNS OF DISTRESS. ON TRACH AND VENT. TOLERATING WELL. VITAL SIGNS WITHIN NORMAL LIMITS. ALL DUE MEDS GIVEN. SUCTION NEEDED THROUGHOUT THE SHIFT. MALATHI MIDLINE INTACT AND PATENT. GT FEEDING RUNNING TOLERATING WELL. NO CHANGE OF CONDITION AT THIS TIME. TREATMENT DONE ORDERED. KEPT CLEAN AND DRY. REINFORCED SAFETY MEASURES. CALL LIGHT WITHIN REACH. WILL ENDORSE TO THE BOATSWAINS MATE.
--- NOTE | 2019-09-30 19:18 | NUR ---
RN CLOSING NOTE ENDORSED TO THE NEXT SHIFT FOR LEONCIO.
--- NOTE | 2019-09-30 19:20 | NUR ---
RN OPENING NOTES RECEIVED PATIENT IN BED, OBTUNDED. ON TELE MONITOR SR WITH HR 80'S. ON MECHANICAL VENT SETTINGS ORDERED, TOLERATING WELL, NO SOB OR RESPIRATORY DISTRESS NOTED, SATURATING 100%. RIGHT UPPER ARM MIDLINE, FLUSHING AND INTACT, S/L. LOZADA CATH INTACT AND DRAINING CLEAR YELLOW URINE. G-TUBE RUNNING ORDERED, MINIMAL RESIDUAL NOTED. HOB ELEVATED AT ALL TIMES FOR ASPIRATION PRECAUTION. SAFETY MEASURES IN PLACE; CALL LIGHT WITHIN REACH, SR UP X2, BED LOCKED AND IN LOW POSITION. WILL CONT TO MONITOR PT CLOSELY.
[2019-09-30 20:00] VITALS: BP 135/56
[2019-09-30] MEDS: INSULIN GLARGINE, 100 UNIT/ML CARTRIDGE SQ SCH (23:03)
[2019-10-01] VITALS (7 sets, daily range): BP systolic 106–151; BP diastolic 52–67
[2019-10-01] MEDS: LINEZOLID RTU BAG 600 MG in PREMIX 1 EA IV SCH ×2 (00:19→12:08)
[2019-10-01] MEDS: IPRATROPIUM NEB FS 0.5 MG/2.5 ML AMPUL.NEB IH SCH ×4 (01:12→20:02)
--- NOTE | 2019-10-01 02:00 | NUR ---
REPORT GIVEN TO SINCERE FREDERICK FOR LEONCIO.
[2019-10-01] MEDS: PIPERACILLIN /TAZOBACTAM 4.5 G in IV D5W 50 ML IV SCH ×3 (05:13→16:12)
[2019-10-01] MEDS: SULFAMETH/TRIMETH 800/160 MG 1 UDTAB TABLET GT SCH ×2 (05:19→17:32)
[2019-10-01] MEDS: BLOOD SUGAR DIAGNOSTIC 1 EACH STRIP IN SCH ×4 (05:19→23:03)
[2019-10-01] MEDS: INSULIN REGULAR, HUMAN 100 UNIT/ML 3 ML VIAL SQ PRN ×3 (05:22→23:04)
[2019-10-01 06:34] LABS: CALCIUM, SERUM 8.8 mg/dL (8.5-10.1); CREATININE 1.2 mg/dL (0.6-1.3); PHOSPHORUS 3.7 mg/dL (2.5-4.9); POTASSIUM 3.9 mmol/L (3.5-5.1)
[2019-10-01 06:37] LABS: BASOPHILS % (AUTO) 0.3 % (0.0-2.0); EOSINOPHILS % (AUTO) 2.3 % (0.0-6.0); HEMATOCRIT 29 % (39-51); HEMOGLOBIN 9.5 g/dL (13.5-17.5); LYMPHOCYTES % (AUTO) 18.5 % (20.0-44.0); MEAN CORPUSCULAR HGB CONC 33 g/dl (31.0-36.0); MEAN CORPUSCULAR VOLUME 90 fL (80-96); MONOCYTES # (AUTO) 0.9 /CMM (0.1-1.30); MONOCYTES % (AUTO) 8.3 % (2.0-12.0); NEUTROPHILS # (AUTO) 7.5 /CMM (1.8-8.9); NEUTROPHILS % (AUTO) 70.6 % (43.0-81.0); PLATELET COUNT (AUTO) 548 /CMM (150-450); RED BLOOD CELL COUNT(AUTO) 3.19 MIL/uL (4.5-6.0); WHITE BLOOD COUNT (AUTO) 10.6 K/uL (4.3-11.0)
[2019-10-01] MEDS: PANTOPRAZOLE 40 MG VIAL IV SCH (09:03)
[2019-10-01] MEDS: AMIODARONE HCL 200 MG TABLET GT SCH ×3 (09:04→16:13)
[2019-10-01] MEDS: SILVER SULFADIAZINE CREAM 25 GM TUBE TP SCH (09:04)
[2019-10-01] MEDS: FAMOTIDINE (20 MG) 20 MG TABLET GT SCH ×2 (09:04→16:12)
[2019-10-01] MEDS: DAKINS QUARTER STRENGTH (0.125%) 480 ML BOTTLE TOP SCH (09:05)
[2019-10-01] MEDS: HYDROGEL DRESSING 90 GM TUBE TP SCH (09:05)
[2019-10-01] MEDS: GLUCERNA 1.2 1,000 ML BOTTLE NG PRN (09:09)
[2019-10-01] MEDS: FUROSEMIDE 40 MG TABLET GT SCH (10:12)
--- NOTE | 2019-10-01 19:38 | NUR ---
TELE/RN CLOSING NOTES PATIENT CONTINUES TO REMAIN IN STABLE CONDITION THROUGHOUT THE SHIFT. PROVIDED COMFORT AND SAFETY. PATIENT ABLE TO TOLERATE FEEDING AND MEDS WELL. HOB ELEVATED AT ALL TIMES. TREATMENT WAS DONE ORDERED. ALL NEEDS ANTICIPATED. CALL LIGHT WITHIN REACHED. BED LOCKED AND IN LOWEST POSITION. WILL CONTINUE TO MONITOR CLOSELY. ENDORSED TO PM NURSE FOR LEONCIO.
--- NOTE | 2019-10-01 19:55 | NUR ---
REGISTERED NURSE FETAL NOTES RECEIVED PATIENT IN BED OBTUNDED. BREATHING NORMAL NO SOB NOTED. RESPIRATION EVEN NON LABORED. ON MECHANICAL VENTILATION TOLERATING PRESCRIBED SETTING WELL . HOB ELEVATED ALL THE TIMES, CONTINUES ON GTF GLUCERNA 1.6@65ML/HR TOLERATING WELL NO RESIDUAL NOTED. SKIN WARM AND DRY TO TOUCH. MALATHI MIDLINE INTACT. PATIENT REMAINS ON ISOLATION. SAFETY MEASURES IN PLACE; CALL LIGHT WITHIN REACH, SIDE RAILS UP X2, BED LOCKED AND IN LOW POSITION. WILL CONT TO MONITOR
[2019-10-01] MEDS: COLISTIMETHATE SODIUM 100 MG in IV NS 0.9% 50 ML IV SCH (20:36)
[2019-10-01] MEDS: LINEZOLID 600 MG TABLET PO SCH (21:26)
[2019-10-01] MEDS: INSULIN GLARGINE, 100 UNIT/ML CARTRIDGE SQ SCH (23:03)
[2019-10-02] VITALS (7 sets, daily range): BP systolic 121–148; BP diastolic 45–60
[2019-10-02] MEDS: IPRATROPIUM NEB FS 0.5 MG/2.5 ML AMPUL.NEB IH SCH ×4 (02:00→19:33)
[2019-10-02] MEDS: GLUCERNA 1.2 1,000 ML BOTTLE NG PRN ×2 (04:46→23:57)
[2019-10-02] MEDS: BLOOD SUGAR DIAGNOSTIC 1 EACH STRIP IN SCH ×3 (05:09→17:43)
[2019-10-02 06:18] LABS: BASOPHILS % (AUTO) 0.4 % (0.0-2.0); EOSINOPHILS % (AUTO) 2.4 % (0.0-6.0); HEMATOCRIT 26 % (39-51); HEMOGLOBIN 8.6 g/dL (13.5-17.5); LYMPHOCYTES # (AUTO) 1.5 /CMM (0.8-4.8); LYMPHOCYTES % (AUTO) 12.8 % (20.0-44.0); MEAN CORPUSCULAR HGB CONC 34 g/dl (31.0-36.0); MEAN CORPUSCULAR VOLUME 89 fL (80-96); MONOCYTES # (AUTO) 0.9 /CMM (0.1-1.30); MONOCYTES % (AUTO) 7.3 % (2.0-12.0); NEUTROPHILS # (AUTO) 9.2 /CMM (1.8-8.9); NEUTROPHILS % (AUTO) 77.1 % (43.0-81.0); PLATELET COUNT (AUTO) 550 /CMM (150-450); RED BLOOD CELL COUNT(AUTO) 2.86 MIL/uL (4.5-6.0); WHITE BLOOD COUNT (AUTO) 11.9 K/uL (4.3-11.0)
[2019-10-02 06:48] LABS: BILIRUBIN,TOTAL 0.3 mg/dL (0.2-1.0); CALCIUM, SERUM 8.8 mg/dL (8.5-10.1); CREATININE 1.2 mg/dL (0.6-1.3); PHOSPHORUS 3.3 mg/dL (2.5-4.9); POTASSIUM 3.9 mmol/L (3.5-5.1); TOTAL PROTEIN, SERUM 6.9 g/dL (6.4-8.2)
--- NOTE | 2019-10-02 06:52 | NUR ---
PATIENT SUPPORT ASSISTANT CLOSING NOTES PATIENT RESTING IN BED. NO ACUTE CHANGES THROUGHOUT SHIFT. ON TELE MONITOR SR WITH HR 84. ON MECHANICAL VENT SETTINGS ORDERED, TOLERATING WELL, BREATHING NORMAL NO SOB OR RESPIRATORY DISTRESS NOTED, SATURATING 100%. IV SITE FLUSHING AND INTACT, PATENT. FC DRAINING VIA GRAVITY WITH YELLOW URINE DRAINING. TURNING AND REPOSTING ORDERED Q2H. KEPT PT CLEAN, DRY, AND COMFORTABLE. SAFETY MEASURES IN PLACE, BED IN LOW AND LOCKED POSITION. WILL ENDORSE TO DAY SHIFT NURSE
--- NOTE | 2019-10-02 07:36 | NUR ---
RN OPENING NOTES RECEIVED PATIENT RESTING IN BED COMFORTABLY, SHOWS NO S/SX OF DISTRESS OR SOB. PT IS OBTUNDED, NON-VERBAL, AND BEDBOUND. HE IS ON MECH VENT VIA PORTEX 7 TRACH, TOLERATING SETTINGS WELL. TELE MONITOR IS SHOWING SR. SKIN IS NOT INTACT, MULTIPLE WOUNDS PRESENT THROGHOUT THE BODY, WILL ADDRESS PER WOUND CARE PLAN. LOZADA CATH IS PATENT AND INTACT, DRAINING URINE BY GRAVITY. GTUBE IS INTACT, RUNNING GLUCERNA AT 65 ML/HR. MALATHI MIDLINE IS PATENT AND INTACT, NO FLUIDS AT THIS TIME. CONTACT AND DROPLET PRECAUTIONS HAVE BEEN IMPLEMENTED AND ENFORCED. SAFETY MEASURES HAVE BEEN IMPLEMENTED, CALL LIGHT IS WITHIN REACH, BED IS IN LOWEST AND LOCKED POSITION, SIDE RAILS UP X2, WILL CONTINUE TO MONITOR FOR ANY CHANGES.
[2019-10-02] MEDS: FUROSEMIDE 40 MG TABLET GT SCH (08:36)
[2019-10-02] MEDS: FAMOTIDINE (20 MG) 20 MG TABLET GT SCH ×2 (08:36→17:35)
[2019-10-02] MEDS: PANTOPRAZOLE 40 MG VIAL IV SCH (08:36)
[2019-10-02] MEDS: LINEZOLID 600 MG TABLET PO SCH ×2 (08:36→21:57)
[2019-10-02] MEDS: AMIODARONE HCL 200 MG TABLET GT SCH ×3 (08:36→17:35)
[2019-10-02] MEDS: HYDROGEL DRESSING 90 GM TUBE TP SCH (08:45)
[2019-10-02] MEDS: DAKINS QUARTER STRENGTH (0.125%) 480 ML BOTTLE TOP SCH (08:46)
[2019-10-02] MEDS: SILVER SULFADIAZINE CREAM 25 GM TUBE TP SCH (08:46)
[2019-10-02 09:14] LABS: MAGNESIUM 2.1 mg/dL (1.8-2.4)
[2019-10-02] MEDS: INSULIN REGULAR, HUMAN 100 UNIT/ML 3 ML VIAL SQ PRN (12:38)
--- NOTE | 2019-10-02 19:03 | NUR ---
RN CLOSING NOTES PATIENT IS RESTING COMFORTABLY IN BED AT THIS TIME. HE IS ON MECH VENT VIA TRACH, TOLERATING SETTING WELL, NO SOB OR RESP DISTRESS. TOLERATING TF WELL. NO ACUTE CHANGES OCCURRED THROUGHOUT THE SHIFT, VITAL SIGNS ARE STABLE, PT NEEDS HAVE BEEN MET. SAFETY MEASURES HAVE BEEN IMPLEMENTED, CALL LIGHT IS WITHIN REACH, BED IS IN LOWEST AND LOCKED POSITION, SIDE RAILS UP X2, PT HAS BEEN ENDORSED TO NIGHTSHIFT RN FOR LEONCIO.
--- NOTE | 2019-10-02 19:20 | NUR ---
RN OPENING NOTES: Received pt in bed, obtunded. On trach and vent tolerating settings well. No respiratory distress noted. On tele monitor showing SR. On GT feeding of Glucerna at 65cc/hr. Tolerating well. Has right UA midline, flushed and patent. Dressing c/d/i. Has quintana cath, patent and draining urine. Safety measures in place. Bed in lowest and locked position, side rails up x3, and call light within reach. Will continue to monitor.
[2019-10-02] MEDS: COLISTIMETHATE SODIUM 100 MG in IV NS 0.9% 50 ML IV SCH (19:59)
--- NOTE | 2019-10-02 20:47 | NUR ---
Gave report to SINCERE Can for LEONCIO.
--- NOTE | 2019-10-02 21:00 | NUR ---
GEORGES/RN ASSUMED CARE FOR CONTINUITY OF CARE, PATIENT APPEAR SLEEPING, APPEAR COMFORTABLE, NO SIGNS OF DISTRESS NOTED, HOB ELEVATED, GT FEEDING INFUSING, WILL MONITOR.
--- NOTE | 2019-10-02 21:11 | NUR ---
RT NOTES PT RECIEVED TRACHED ON [facility] VENT ON CHARTED SETTINGS. NO SIGNS OF RESP DISTRESS/SOB NOTED. AIRWAY PATENT AND SECURED. MINERALOGY TEACHER DONE. PT SUCTIONED. TX GIVEN. NO ADVERSE REACTIONS NOTED. ALARMS SET AND AUDIBLE. AMBUBAG AND SPARE TRACH AT BEDSIDE. VENT CONNECTED TO RED OUTLET. WILL CONT TO MONITOR. Addendum: 10/03/19 at 0227 by MONSE MCCALLUM RT Amended: Links added.
[2019-10-02] MEDS: INSULIN GLARGINE, 100 UNIT/ML CARTRIDGE SQ SCH (21:59)
[2019-10-03] VITALS (7 sets, daily range): BP systolic 121–144; BP diastolic 45–84
[2019-10-03] MEDS: INSULIN REGULAR, HUMAN 100 UNIT/ML 3 ML VIAL SQ PRN ×3 (00:10→17:24)
[2019-10-03] MEDS: BLOOD SUGAR DIAGNOSTIC 1 EACH STRIP IN SCH ×4 (00:11→17:20)
[2019-10-03] MEDS: IPRATROPIUM NEB FS 0.5 MG/2.5 ML AMPUL.NEB IH SCH ×4 (01:53→19:51)
--- NOTE | 2019-10-03 05:39 | NUR ---
GEORGES/RN MORNING CARE WAS DONE, GOOD SKIN CARE DONE, DRESSING CHANGED PER ORDER AT [facility], BOTH HIPS WOUNDS. TRACH CARE DONE, TOLERATED, REPOSITIONED TO COMFORT, HOB ELEVATED. WILL CONTINUE TO MONITOR.
--- NOTE | 2019-10-03 06:19 | NUR ---
GEORGES/RN PATIENT APPEAR SLEEPING, APPEAR COMFORTABLE, NO SIGNS OF DISTRESS NOTED, HOB ELEVATED, ALL NEEDS ATTENDED AT THIS TIME, WILL CONTINUE TO MONITOR.
[2019-10-03 06:43] LABS: BASOPHILS # (AUTO) 0.1 /CMM (0.0-0.2); BASOPHILS % (AUTO) 0.5 % (0.0-2.0); EOSINOPHILS % (AUTO) 3.4 % (0.0-6.0); HEMATOCRIT 26 % (39-51); HEMOGLOBIN 8.3 g/dL (13.5-17.5); LYMPHOCYTES # (AUTO) 2.2 /CMM (0.8-4.8); LYMPHOCYTES % (AUTO) 17.4 % (20.0-44.0); MEAN CORPUSCULAR HGB CONC 32 g/dl (31.0-36.0); MEAN CORPUSCULAR VOLUME 91 fL (80-96); MONOCYTES # (AUTO) 1.1 /CMM (0.1-1.30); MONOCYTES % (AUTO) 8.7 % (2.0-12.0); NEUTROPHILS # (AUTO) 8.8 /CMM (1.8-8.9); PLATELET COUNT (AUTO) 541 /CMM (150-450); RED BLOOD CELL COUNT(AUTO) 2.82 MIL/uL (4.5-6.0); WHITE BLOOD COUNT (AUTO) 12.5 K/uL (4.3-11.0)
[2019-10-03 07:11] LABS: CALCIUM, SERUM 8.7 mg/dL (8.5-10.1); CREATININE 1.3 mg/dL (0.6-1.3); POTASSIUM 4.7 mmol/L (3.5-5.1)
--- NOTE | 2019-10-03 08:30 | NUR ---
LOW ALTITUDE AIR DEFENSE OFFICER NOTES RECEIVED PT IN BED, OBTUNDED. TRACHED AND VENTED TOLERATING WELL RX'D SETTINGS. NO SOB NOTED. HOB ELEVATED AT ALL TIMES. MIDLINE CATH INTACT AND FLUSHES WELL. GT FEEDING RUNNING AT PRESCRIBED SETTING. RESIDUAL OF 120ML NOTED. WILL HOLD FEEDING FOR 1 HR. PT IS STILL IN ISOLATION. BED LOCKED IN LOWEST POSITION. WILL CONT TO MONITOR
[2019-10-03] MEDS: FAMOTIDINE (20 MG) 20 MG TABLET GT SCH ×2 (09:09→16:30)
[2019-10-03] MEDS: LINEZOLID 600 MG TABLET PO SCH ×2 (09:09→20:11)
[2019-10-03] MEDS: AMIODARONE HCL 200 MG TABLET GT SCH ×3 (09:10→16:30)
[2019-10-03] MEDS: PANTOPRAZOLE 40 MG VIAL IV SCH (09:11)
[2019-10-03] MEDS: FUROSEMIDE 40 MG TABLET GT SCH (09:11)
[2019-10-03] MEDS: SILVER SULFADIAZINE CREAM 25 GM TUBE TP SCH (09:15)
[2019-10-03] MEDS: HYDROGEL DRESSING 90 GM TUBE TP SCH (09:16)
[2019-10-03] MEDS: DAKINS QUARTER STRENGTH (0.125%) 480 ML BOTTLE TOP SCH (09:17)
--- NOTE | 2019-10-03 09:50 | NUR ---
telephone recorder note pt at bedside unable to ambulate able to sit at edge of bed with max assistance, called to mri trailer nobody answer call will f\u
[2019-10-03] MEDS: PROSOURCE / PROSTAT (PYXIS) 30 ML UDC GT SCH ×2 (10:25→16:58)
--- NOTE | 2019-10-03 11:02 | NUR ---
telesales representative note ua collected as ordered
--- NOTE | 2019-10-03 14:00 | NUR ---
TELE R N NOTE TURN REPOSITION ONE, ALL NEEDS ATTENDED WITH GTUBE FEEDING AT T 70 ML PER HOUR PER PER DIETARY
--- NOTE | 2019-10-03 15:15 | NUR ---
TELERN NOTE CHECKED RESIDUAL 150 ML NOTED ,WILL HOLD FOR NOW
--- NOTE | 2019-10-03 15:19 | NUR ---
CLAIM TECHNICIAN NOTES MIDLINE DRESSING CHANGED WITH BLOOD RETURN AND FLUSHES WELL. PT TOLERATED WELL.
--- NOTE | 2019-10-03 15:19 | NUR ---
INVENTORY CHECKER NOTE AZUCENA RN MAT MACHINE TENDER AT BEDSIDE AWARE THAT UA COLLECTED , WBC 12.5 WILL COORDINATE WITH GIOVANNY POSTNP ID FOR FURTHER ATB
[2019-10-03 15:25] LABS: CREATININE, URINE 19.9 MG/DL (30.0-125.0); URINE TOTAL PROTEIN 91.9 mg/dL (0-11.9)
[2019-10-03 15:54] LABS: APPEARANCE,URINE CLEAR (CLEAR); BILIRUBIN,URINE NEGATIVE (NEGATIVE); BLOOD, URINE LARGE Ery/uL (NEGATIVE); COLOR,URINE YELLOW (YELLOW); KETONES,URINE NEGATIVE (NEGATIVE); LEUKOCYTE ESTERASE ,URINE SMALL (NEGATIVE); NITRITE, URINE NEGATIVE (NEGATIVE); PROTEIN,URINE 30 mg/dl (NEGATIVE); UGLUCOSE NEGATIVE (NEGATIVE); UROBILINOGEN,URINE 0.2 EU/dL (0.2)
[2019-10-03 16:30] LABS: BACTERIA,URINE 1+ /HPF (None Seen); RBC,URINE 21-50 /HPF (0-2); SQUAMOUS EPITHELIAL CELL,UR 0-2 /HPF (None Seen); YEAST,URINE Many /HPF (None Seen)
[2019-10-03 16:32] LABS: EOSINOPHIL,URINE RARE
[2019-10-03] MEDS: GLUCERNA 1.2 1,000 ML BOTTLE NG PRN (18:04)
--- NOTE | 2019-10-03 18:42 | NUR ---
SKIN CARE THERAPIST NOTES PT IN BED, OBTUNDED. VENTED AND TRACHED WITH O2 PRESCRIBED. WITH GT FEEDING PRESCRIBED. TOLERATING WELL. NO SINGS OF SOB AND DISTRESS NOTED. BED LOCKED AND IN LOWEST POSITION. SIDE RAILS UP AND SAFETY MEASURES IMPLEMENTED PER [employer] POLICY. WILL ENDORCE TO AN ONCOMING RN
--- NOTE | 2019-10-03 19:20 | NUR ---
RN OPENING NOTE RECEIVED PATIENT IN BED RESTING WITH HOB ELEVATED. OBTUNDED. ON VENT. BREATHING EVEN AND NON LABORED. NO SOB NOTED. ON GTF GLUCERNA RUNNING AT 7 CC/HR. ON LOZADA. URINE IS CLEAR AND YELLOW IN COLOR. MALATHI MIDLINE, TKO, PATENT. IN NO APPARENT DISTRESS NOTED AT THIS TIME. WILL CONTINUE TO MONITOR.
--- NOTE | 2019-10-03 20:04 | NUR ---
RT NOTE PT RECEIVED TRACH ON MECHANICAL VENTILATION. CUFF CHECKED VIA STEEL ERECTING PUSHER. [place] [address] AMBU BAG @ BEDSIDE. TX GIVEN, NO ADVERSE REACTIONS NOTED. SX DONE, TRACH SECURED AND PATENT. ALARMS ON AND AUDIBLE. NO DISTRESS NOTED. WILL MONITOR. Addendum: 10/03/19 at 2004 by VERONICA COBB RT Amended: Links added.
[2019-10-03] MEDS: COLISTIMETHATE SODIUM 100 MG in IV NS 0.9% 50 ML IV SCH (20:11)
[2019-10-03] MEDS: INSULIN GLARGINE, 100 UNIT/ML CARTRIDGE SQ SCH (22:27)
[2019-10-04] VITALS (7 sets, daily range): BP systolic 132–152; BP diastolic 48–63
[2019-10-04] MEDS: BLOOD SUGAR DIAGNOSTIC 1 EACH STRIP IN SCH ×4 (00:08→17:40)
[2019-10-04] MEDS: INSULIN REGULAR, HUMAN 100 UNIT/ML 3 ML VIAL SQ PRN ×3 (00:09→17:42)
[2019-10-04] MEDS: IPRATROPIUM NEB FS 0.5 MG/2.5 ML AMPUL.NEB IH SCH ×4 (01:36→19:32)
[2019-10-04 06:32] LABS: BASOPHILS % (AUTO) 0.3 % (0.0-2.0); EOSINOPHILS % (AUTO) 3.6 % (0.0-6.0); HEMATOCRIT 27 % (39-51); HEMOGLOBIN 8.6 g/dL (13.5-17.5); LYMPHOCYTES # (AUTO) 1.9 /CMM (0.8-4.8); LYMPHOCYTES % (AUTO) 14.9 % (20.0-44.0); MEAN CORPUSCULAR HGB CONC 32 g/dl (31.0-36.0); MEAN CORPUSCULAR VOLUME 91 fL (80-96); MONOCYTES # (AUTO) 1.2 /CMM (0.1-1.30); MONOCYTES % (AUTO) 9.2 % (2.0-12.0); NEUTROPHILS # (AUTO) 9.1 /CMM (1.8-8.9); PLATELET COUNT (AUTO) 506 /CMM (150-450); RED BLOOD CELL COUNT(AUTO) 2.96 MIL/uL (4.5-6.0); WHITE BLOOD COUNT (AUTO) 12.6 K/uL (4.3-11.0)
[2019-10-04 06:33] LABS: ALANINE AMINOTRANSFERASE 11 U/L (12-78); ALBUMIN 1.7 g/dL (3.4-5.0); ALKALINE PHOSPHATASE 107 U/L (46-116); ASPARTATE AMINOTRANSFERASE 17 U/L (15-37); BILIRUBIN,TOTAL 0.3 mg/dL (0.2-1.0); CALCIUM, SERUM 9.2 mg/dL (8.5-10.1); CARBON DIOXIDE 29 mmol/L (21-32); CHLORIDE 101 mmol/L (98-107); CREATININE 1.5 mg/dL (0.6-1.3); GLUCOSE 118 mg/dL (74-106); MAGNESIUM 2.4 mg/dL (1.8-2.4); PHOSPHORUS 4.4 mg/dL (2.5-4.9); POTASSIUM 4.8 mmol/L (3.5-5.1); SODIUM SERUM 138 mmol/L (136-145); TOTAL PROTEIN, SERUM 6.9 g/dL (6.4-8.2); UREA NITROGEN, BLOOD 46 mg/dL (7-18)
--- NOTE | 2019-10-04 07:06 | NUR ---
RN CLOSING NOTE PATIENT IS IN BED RESTING. BREATHING EVEN AND NON LABORED. IN NO APPARENT DISTRESS NOTED AT THIS TIME. NO SIGNIFICANT CHANGES NOTED THROUGHOUT THE NIGHT. WILL ENDORSE TO AM SHIFT RN FOR CONTINUATION OF CARE.
--- NOTE | 2019-10-04 07:15 | NUR ---
RN Opening Note: Received patient in bed. Obtunded. Patient on Isolation Precautions with measures strictly followed by staff. With Mechanical Ventilation and settings being tolerated well. No respiratory distress noted. No SOB at this time. On tele monitoring with sinus rhythm noted. IV sites clean, dry patent and intact. Adams Catheter in place and draining yellow urine. GT patent and in place, no residual noted. No pain noted on pain. Appears comfortable and relaxed. Side rails up x3. Safety ensured and observed. Bed locked, low and at semi-kuo's position. Call light in reach. Will continue to monitor.
[2019-10-04] MEDS: PANTOPRAZOLE 40 MG VIAL IV SCH (09:27)
[2019-10-04] MEDS: DAKINS QUARTER STRENGTH (0.125%) 480 ML BOTTLE TOP SCH (09:28)
[2019-10-04] MEDS: FUROSEMIDE 40 MG TABLET GT SCH (09:28)
[2019-10-04] MEDS: AMIODARONE HCL 200 MG TABLET GT SCH ×3 (09:28→17:05)
[2019-10-04] MEDS: LINEZOLID 600 MG TABLET PO SCH ×2 (09:28→20:01)
[2019-10-04] MEDS: FAMOTIDINE (20 MG) 20 MG TABLET GT SCH ×2 (09:28→17:05)
[2019-10-04] MEDS: PROSOURCE / PROSTAT (PYXIS) 30 ML UDC GT SCH ×2 (09:28→17:05)
[2019-10-04] MEDS: HYDROGEL DRESSING 90 GM TUBE TP SCH (09:28)
[2019-10-04] MEDS: SILVER SULFADIAZINE CREAM 25 GM TUBE TP SCH (09:29)
[2019-10-04] MEDS: GLUCERNA 1.2 1,000 ML BOTTLE NG PRN (09:37)
[2019-10-04] MEDS ORDERED: FLUCONAZOLE (100 MG) 100 MG TABLET GT ONE (10:30)
--- NOTE | 2019-10-04 11:00 | NUR ---
RN NOTE: WITH CHARGE NURSE DEONDRE, SPOKE TO PATIENT'S SISTER, KATHERINE REGARDING PATIENT'S CODE STATUS. CODE STATUS CHANGED TO FULL CODE TO DNR AND WITNESSED BY AZUCENA HERNANDEZ DNP.
--- NOTE | 2019-10-04 11:00 | NUR ---
RN NOTE: PATIENT WAS SEEN BY AZUCENA HERNANDEZ DNP
--- NOTE | 2019-10-04 19:20 | NUR ---
RN OPENING NOTES: Received pt in bed, obtunded. On isolation precautions for VRE of wound. On mechanical ventilation tolerating settings well. No respiratory distress noted. On tele monitor showing SR. Has IV sites on right upper arm midline and left PICC. Lines flushed and patent. Dressings c/d/i. Adams catheter in place and draining yellow urine. On GT feeding of Glucerna 1.2 at 70cc/hr. Tolerating well. GT flushed and patent with no residual noted. Safety measures in place. Bed in lowest and locked position, side rails up x3, call light within reach. Will continue to monitor.
--- NOTE | 2019-10-04 19:26 | NUR ---
RN Closing Note: Patient in bed. Obtunded. Patient on Isolation Precautions with measures strictly followed by staff. With Mechanical Ventilation and settings being tolerated well. No respiratory distress noted. No SOB at this time. On tele monitoring with sinus rhythm noted. IV sites clean, dry patent and intact. Adams Catheter in place and draining yellow urine to be changed by next shift. GT patent and in place, no residual noted. No pain noted on pain. Appears comfortable and relaxed. Side rails up x3. Safety ensured and observed. Bed locked, low and at semi-kuo's position. Call light in reach. Endorsed to oncoming shift for LEONCIO.
[2019-10-04] MEDS ORDERED: FLUCONAZOLE (100 MG) 100 MG TABLET PO SCH (20:00)
[2019-10-04] MEDS: COLISTIMETHATE SODIUM 100 MG in IV NS 0.9% 50 ML IV SCH (20:01)
--- NOTE | 2019-10-04 21:24 | NUR ---
PT RECEIVE STABLE ON MV, SETTINGS ARE AC 16, 550, +5, 30% FIO2, TRACH PATENT AND SECURED, VENT PLUG IN RED OUTLET WILL CONTINUE TO MONITOR Addendum: 10/04/19 at 2126 by SEVEN CHEN RT Amended: Links added.
[2019-10-04] MEDS: INSULIN GLARGINE, 100 UNIT/ML CARTRIDGE SQ SCH (21:45)
[2019-10-04] MEDS: ACETAMINOPHEN 650 MG/SUPP.RECT RC PRN (23:55)
--- NOTE | 2019-10-04 23:55 | NUR ---
RN NOTE: Pt noted w/ temp of 99.8. Tylenol suppository PRN given as ordered. Will continue to monitor.
[2019-10-05] VITALS: BP 141/43
[2019-10-05] MEDS: BLOOD SUGAR DIAGNOSTIC 1 EACH STRIP IN SCH ×4 (00:06→18:26)
[2019-10-05] MEDS: INSULIN REGULAR, HUMAN 100 UNIT/ML 3 ML VIAL SQ PRN ×4 (00:08→18:34)
--- NOTE | 2019-10-05 00:55 | NUR ---
RN NOTE: Rechecked pt's temp at 98.4.
[2019-10-05] MEDS: IPRATROPIUM NEB FS 0.5 MG/2.5 ML AMPUL.NEB IH SCH ×4 (01:31→19:24)
[2019-10-05 04:00] VITALS: BP 127/50
[2019-10-05] MEDS: GLUCERNA 1.2 1,000 ML BOTTLE NG PRN (05:32)
--- NOTE | 2019-10-05 07:02 | NUR ---
RN CLOSING NOTES: Pt resting in bed obtunded. On mechanical ventilation tolerating well. No respiratory distress ntoed. No acute changes noted during shift. Showing SR on tele monitor. Tolerating GT feeding of Glucerna 1.2 at 70cc/hr well. IV sites on right UA midline and left PICC flushed and patent. Dressings c/d/i. Changed quintana catheter during shift. All medications administered as ordered. Safety measures in place. Bed in lowest and locked position, side rails up x3, call light within reach. Will endorse to AM nurse for LEONCIO.
[2019-10-05 07:11] LABS: BASOPHILS % (AUTO) 0.2 % (0.0-2.0); EOSINOPHILS % (AUTO) 3.2 % (0.0-6.0); HEMATOCRIT 25 % (39-51); HEMOGLOBIN 7.9 g/dL (13.5-17.5); LYMPHOCYTES # (AUTO) 1.6 /CMM (0.8-4.8); LYMPHOCYTES % (AUTO) 11.7 % (20.0-44.0); MEAN CORPUSCULAR HGB CONC 31 g/dl (31.0-36.0); MEAN CORPUSCULAR VOLUME 91 fL (80-96); MONOCYTES % (AUTO) 7.4 % (2.0-12.0); NEUTROPHILS # (AUTO) 10.7 /CMM (1.8-8.9); NEUTROPHILS % (AUTO) 77.5 % (43.0-81.0); PLATELET COUNT (AUTO) 537 /CMM (150-450); RED BLOOD CELL COUNT(AUTO) 2.77 MIL/uL (4.5-6.0); WHITE BLOOD COUNT (AUTO) 13.8 K/uL (4.3-11.0)
[2019-10-05 07:31] LABS: ALANINE AMINOTRANSFERASE 10 U/L (12-78); ALBUMIN 1.7 g/dL (3.4-5.0); ALKALINE PHOSPHATASE 101 U/L (46-116); ASPARTATE AMINOTRANSFERASE 16 U/L (15-37); BILIRUBIN,TOTAL 0.4 mg/dL (0.2-1.0); CALCIUM, SERUM 9.7 mg/dL (8.5-10.1); CARBON DIOXIDE 30 mmol/L (21-32); CHLORIDE 101 mmol/L (98-107); CREATININE 1.8 mg/dL (0.6-1.3); GLUCOSE 175 mg/dL (74-106); MAGNESIUM 2.4 mg/dL (1.8-2.4); PHOSPHORUS 4.6 mg/dL (2.5-4.9); POTASSIUM 4.4 mmol/L (3.5-5.1); SODIUM SERUM 138 mmol/L (136-145); TOTAL PROTEIN, SERUM 6.9 g/dL (6.4-8.2); UREA NITROGEN, BLOOD 56 mg/dL (7-18)
[2019-10-05 08:00] VITALS: BP 160/60
--- NOTE | 2019-10-05 08:00 | NUR ---
WIND TURBINE MECHANIC OPENING NOTES RECEIVED PT IN BED. OBTUNDED. NON VERBAL. ON ISOLATION PRECAUTIONS FOR VRE OF THE WOUND. ON MECHANICAL VENT. NO CARDIAC OR RESP DISTRESS NOTED. ON GOLD BEATER. SHOWING SR WITH HR OF 86. IV ACCESS NOTED ON MALATHI MIDLINE AND LANEY PICC LINE. INTACT AND PATENT. NO S/S OF INFECTION OR INFILTRATION TO BOTH SIDES NOTED. LOZADA CATH INTACT AND PATENT. DRAINING WITH CLEAR YELLOW URINE. ON GTUBE FEEDING WITH GLUCERNA 1.2 RUNNING AT 70ML/HR. GT SITE INTACT AND PATENT. FEEDING RUNNING. NO GASTRIC RESIDUAL NOTED. SAFETY PRECAUTIONS IN PLACE. BED LOCKED AND IN LOW POSITION. SIDE RAILS UP. CALL LIGHT WITHIN REACH. WILL CONT TO MONITOR.
[2019-10-05] MEDS: LINEZOLID 600 MG TABLET PO SCH ×2 (08:40→20:18)
[2019-10-05] MEDS: PANTOPRAZOLE 40 MG VIAL IV SCH (08:40)
[2019-10-05] MEDS: FAMOTIDINE (20 MG) 20 MG TABLET GT SCH ×2 (08:41→16:15)
[2019-10-05] MEDS: PROSOURCE / PROSTAT (PYXIS) 30 ML UDC GT SCH ×2 (08:41→16:15)
[2019-10-05] MEDS: AMIODARONE HCL 200 MG TABLET GT SCH ×3 (08:41→16:15)
[2019-10-05] MEDS: FUROSEMIDE 40 MG TABLET GT SCH (08:41)
[2019-10-05] MEDS ORDERED: FLUCONAZOLE (100 MG) 100 MG TABLET PO SCH (09:00)
[2019-10-05] MEDS: DAKINS QUARTER STRENGTH (0.125%) 480 ML BOTTLE TOP SCH (09:00)
[2019-10-05] MEDS: SILVER SULFADIAZINE CREAM 25 GM TUBE TP SCH (09:00)
[2019-10-05] MEDS: HYDROGEL DRESSING 90 GM TUBE TP SCH (09:07)
--- NOTE | 2019-10-05 10:00 | NUR ---
WOUND CARE ALL WOUND CARE RENDERED. POSSIBLE D/C TO SNF TODAY. PICTURES TAKEN AND PLACED IN CHART.
[2019-10-05 12:00] VITALS: BP 159/62
--- NOTE | 2019-10-05 13:45 | NUR ---
PATIENT TEMP 100.2 AZUCENA HERNANDEZ MADE AWARE AND ORDERED HOLD DISCHARGE.
[2019-10-05] MEDS: ACETAMINOPHEN 650 MG/SUPP.RECT RC PRN (14:44)
--- NOTE | 2019-10-05 14:44 | NUR ---
TYLENOL SUPP ADMINISTERED TYLENOL SUPP ADMINISTERED. WILL RE-CHECK TEMP.
--- NOTE | 2019-10-05 14:45 | NUR ---
COOLING MEASURES PROVIDED COOLING MEASURES BY REDUCING BLANKETS AND PROVIDING, SPONGE BATH.
--- NOTE | 2019-10-05 15:30 | NUR ---
RECHECK TEMP RECHECKED TEMP. NOTED TO BE AT 99.2
[2019-10-05 16:00] VITALS: BP 136/61
--- NOTE | 2019-10-05 16:30 | NUR ---
RECHECKED TEMP TEMP AT 98.2 AT THIS TIME.
[2019-10-05] MEDS ORDERED: MEROPENEM 500 MG in IV NS 0.9% 50 ML IV SCH (17:30)
--- NOTE | 2019-10-05 17:35 | NUR ---
SEEN BY ID SPECIALIST WITH NEW ORDERS
--- NOTE | 2019-10-05 18:00 | NUR ---
F/U WITH PHARMACY FOLLOWED UP WITH PHARMACY TO DELIVER COLISTHIMETATE AND MERREM, PERPHARMACY THEY WILL DELIVER
--- NOTE | 2019-10-05 18:20 | NUR ---
F/U WITH PHARMACY CALLED PHARMACY TO VERIFY MERREM AND COLISTIMETHATE. PER PHARMACY THEY WILL GET TO IT.
--- NOTE | 2019-10-05 18:42 | NUR ---
AWAITING FOR PHARMACY TO STILL VERIFY MERREM AND MYCAMINE. SPOKE TO CAMERON.
--- NOTE | 2019-10-05 18:49 | NUR ---
RECHECK TEMP TEMP RECHECKED NOTED AT 98.7 AUXILLIARY.
--- NOTE | 2019-10-05 18:50 | NUR ---
SECY CLOSING NOTES PT IN BED. OBTUNDED. NON VERBAL. ON ISOLATION PRECAUTIONS FOR VRE OF THE WOUND. ON MECHANICAL VENT. NO CARDIAC OR RESP DISTRESS NOTED. ON SUPERVISOR COMPOUNDING AND FINISHING. SHOWING SR WITH HR OF 98. IV ACCESS NOTED ON MALATHI MIDLINE AND LANEY PICC LINE. INTACT AND PATENT. NO S/S OF INFECTION OR INFILTRATION TO BOTH SIDES NOTED. LOZADA CATH INTACT AND PATENT. DRAINING WITH CLEAR YELLOW URINE. ON GTUBE FEEDING WITH GLUCERNA 1.2 RUNNING AT 70ML/HR. GT SITE INTACT AND PATENT. FEEDING RUNNING. NO GASTRIC RESIDUAL NOTED. SAFETY PRECAUTIONS IN PLACE. BED LOCKED AND IN LOW POSITION. SIDE RAILS UP. CALL LIGHT WITHIN REACH. PTS DISCHARGED WAS CANCELLED TODAY PER DR. HERNANDEZ ORDERS, PER DR. HERNANDEZ PT DEVELOPED BREANNE. WILL ENDORSE TO NEXT SHIFT.
--- NOTE | 2019-10-05 19:20 | NUR ---
RN OPENING NOTES: Received pt in bed, obtunded. On isolation for VRE of wound. On mechanical ventilation, tolerating settings well. No respiratory distress noted. On tele monitor reading SR. Has right upper arm midline and left arm PICC. Lines flushed and patent. Dressings c/d/i. On GT feeding of Glucerna at 70cc/hr. Tolerating feeding well. GT flushed, patent and no residual noted. Safety measures in place. Bed in lowest and locked position, side rails up x3, call light within reach. Will continue to monitor.
[2019-10-05] MEDS: MICAFUNGIN SODIUM 100 MG in IV NS 0.9% 100 ML IV SCH (19:41)
[2019-10-05 20:00] VITALS: BP 158/56
[2019-10-05] MEDS: CLONIDINE HCL 0.1 MG TABLET GT PRN (20:18)
[2019-10-05] MEDS: MEROPENEM 1 G in IV NS 0.9% 100 ML IV SCH (21:12)
[2019-10-05] MEDS: INSULIN GLARGINE, 100 UNIT/ML CARTRIDGE SQ SCH (21:16)
[2019-10-06] VITALS (10 sets, daily range): BP systolic 109–156; BP diastolic 45–61
[2019-10-06] MEDS: BLOOD SUGAR DIAGNOSTIC 1 EACH STRIP IN SCH ×5 (00:14→23:04)
[2019-10-06] MEDS: IPRATROPIUM NEB FS 0.5 MG/2.5 ML AMPUL.NEB IH SCH ×4 (01:52→19:32)
[2019-10-06] MEDS: GLUCERNA 1.2 1,000 ML BOTTLE NG PRN ×2 (05:00→21:08)
[2019-10-06] MEDS: INSULIN REGULAR, HUMAN 100 UNIT/ML 3 ML VIAL SQ PRN ×4 (05:05→22:25)
--- NOTE | 2019-10-06 06:56 | NUR ---
RN CLOSING NOTES: Pt resting in bed, obtunded. On mechanical ventilation tolerating settings well. No respiratory distress noted. No acute changes noted during shift. On tele monitor reading SR. MALATHI midline and left arm PICC line patent and flushing, dressings c/d/i. GT flushed and patent, tolerating feeding of Glucerna at 70cc/hr well. Safety measures in place. Bed in lowest and locked position, side rails up x3, call light within reach. Will endorse to AM nurse for LEONCIO.
--- NOTE | 2019-10-06 07:15 | NUR ---
VIDEOTAPE SALES REPRESENTATIVE OPENING NOTES RECEIVED PT ON BED, NON VERBAL. ON [facility] VENT, CLINICAL ALARM CHECKED. RESPIRATION NOT IN ACUTE RESPIRATORY DISTRESS, TELE MONITOR SHOWS SINUS RHYTHM AT 87. NO S/SX ON PAIN AND DISCOMFORT. SKIN WARM TO TOUCH AND DRY, TEMP 99F. ABD SOFT AND NON DISTENDED WITH ACTIVE BOWEL SOUNDS, FC IN PLACE WITH YELLOW URINE OUTPUT, G-TUBE SITE CLEAN AND DRY RUNNING GLUCERNA 1.2 AT 70 CC/HR. IV SITE AT RIGHT UPPER ARM MIDLINE RUNNING NS AT TKO, LEFT PICC LINE H/L. BOTH IV SITE PATENT IN FLUSHING, NO S/SX ON INFILTRATION ON SITE. BED IN LOW LOCKED POSITION, SRX2 UP FOR SAFETY. ND DNR. WILL CONTINUE TO EVALUATE CARE.
--- NOTE | 2019-10-06 07:17 | NUR ---
LITIGATION SUPPORT ANALYST NOTES PT ON CONTACT ISOLATION DUE TO VRE IN WOUND
[2019-10-06 07:28] LABS: BASOPHILS # (AUTO) 0.1 /CMM (0.0-0.2); BASOPHILS % (AUTO) 0.8 % (0.0-2.0); EOSINOPHILS % (AUTO) 4.5 % (0.0-6.0); HEMATOCRIT 24 % (39-51); HEMOGLOBIN 7.7 g/dL (13.5-17.5); LYMPHOCYTES # (AUTO) 1.4 /CMM (0.8-4.8); LYMPHOCYTES % (AUTO) 12.3 % (20.0-44.0); MEAN CORPUSCULAR HGB CONC 32 g/dl (31.0-36.0); MEAN CORPUSCULAR VOLUME 91 fL (80-96); MONOCYTES # (AUTO) 0.8 /CMM (0.1-1.30); MONOCYTES % (AUTO) 7.3 % (2.0-12.0); NEUTROPHILS # (AUTO) 8.4 /CMM (1.8-8.9); NEUTROPHILS % (AUTO) 75.1 % (43.0-81.0); PLATELET COUNT (AUTO) 504 /CMM (150-450); RED BLOOD CELL COUNT(AUTO) 2.67 MIL/uL (4.5-6.0); WHITE BLOOD COUNT (AUTO) 11.1 K/uL (4.3-11.0)
[2019-10-06 07:49] LABS: ALANINE AMINOTRANSFERASE 16 U/L (12-78); ALBUMIN 1.6 g/dL (3.4-5.0); ALKALINE PHOSPHATASE 118 U/L (46-116); ASPARTATE AMINOTRANSFERASE 22 U/L (15-37); BILIRUBIN,TOTAL 0.3 mg/dL (0.2-1.0); CALCIUM, SERUM 9.8 mg/dL (8.5-10.1); CARBON DIOXIDE 29 mmol/L (21-32); CHLORIDE 103 mmol/L (98-107); GLUCOSE 183 mg/dL (74-106); MAGNESIUM 2.4 mg/dL (1.8-2.4); PHOSPHORUS 5.1 mg/dL (2.5-4.9); POTASSIUM 4.7 mmol/L (3.5-5.1); SODIUM SERUM 140 mmol/L (136-145); TOTAL PROTEIN, SERUM 6.9 g/dL (6.4-8.2); UREA NITROGEN, BLOOD 59 mg/dL (7-18)
[2019-10-06] MEDS: PROSOURCE / PROSTAT (PYXIS) 30 ML UDC GT SCH ×2 (08:41→16:14)
[2019-10-06] MEDS: PANTOPRAZOLE 40 MG VIAL IV SCH (08:41)
[2019-10-06] MEDS: LINEZOLID 600 MG TABLET PO SCH ×2 (08:41→20:42)
[2019-10-06] MEDS: FAMOTIDINE (20 MG) 20 MG TABLET GT SCH ×2 (08:42→16:14)
[2019-10-06] MEDS: AMIODARONE HCL 200 MG TABLET GT SCH ×3 (08:42→16:14)
[2019-10-06] MEDS: FUROSEMIDE 40 MG TABLET GT SCH (08:42)
[2019-10-06] MEDS: DAKINS QUARTER STRENGTH (0.125%) 480 ML BOTTLE TOP SCH (08:43)
[2019-10-06] MEDS: HYDROGEL DRESSING 90 GM TUBE TP SCH (08:49)
[2019-10-06] MEDS: SILVER SULFADIAZINE CREAM 25 GM TUBE TP SCH (08:49)
[2019-10-06] MEDS: MEROPENEM 1 G in IV NS 0.9% 100 ML IV SCH ×2 (09:07→20:45)
--- NOTE | 2019-10-06 09:12 | NUR ---
THREAD REELER NOTES G-TUBE SITE NO RESIDUAL NOTED, IN PLACED WITH AIR AUSCULTATED. ADMINISTERED MEDICATION. HOB KEPT ELEVATED. TOLERATED WELL. TEMP 99.1 WHEN RE-CHECKED. WILL CONTINUE TO MONITOR.
[2019-10-06] MEDS: ACETAMINOPHEN 650 MG/SUPP.RECT RC PRN (12:23)
--- NOTE | 2019-10-06 14:30 | NUR ---
SUPERVISOR FORMING AND TEMPERING NOTES PROVIDED BED BATH, TX PROVIDED ORDERED. BM X1 BROWN SOFT. REPOSITIONED. BLE OFFLOAD. PICC LINE DRESSING CHANGED DUE TO SOILED DRESSING. [facility] VENT CLINICAL ALARMED CHECK. TO MONITOR CONTINUOUSLY.
--- NOTE | 2019-10-06 17:08 | NUR ---
LICENSE CLERK NOTES PT WARM TO TOUCH, TEMP CHECKED 98.5 F AXILLARY
--- NOTE | 2019-10-06 18:31 | NUR ---
HOUSING ASSISTANT CLOSING NOTES PT OBTUNDED, NON VERBAL, OPEN EYES WHEN TURNING. ON MECHANICAL VENTILATOR DEPENDENT, NO PRESENCE OF ACUTE RESPIRATORY DISTRESS. ABD SOFT AND NON DISTENDED WITH ACTIVE BOWEL SOUNDS, ON FC WITH YELLOW URINE IN AM TURNED JEFFRY COLOR AT PM WITH TOTAL OUTPUT OF 700 ML. SKIN WARM TO TOUCH AND DRY, KEEP ROOM COOL DUE TO ON AND OFF LOW GRADE FEVER (LAST TEMP CHECKED 99.1 F AT 1830), MANAGED BY ICE PACK AND TYLENOL SUPPOSITORY ORDERED. NO S/SX OF PAIN AND DISCOMFORT. ON CONTACT ISOLATION DUE TO VRE WOUND. TELE MONITOR SHOWS SINUS RHYTHM 86. IV SITE AT RIGHT UPPER MIDLINE RUNNING NS AT TKO, LEFT PICC LINE H/L. G-TUBE RUNNING 70 ML/HR OF GLUCERNA 1.2, TOLERATED WELL WITH 5ML RESIDUAL. BED IN LOW LOCKED POSITION, SIDE RAILS UP FOR SAFETY. ENDORSED PT CARE TO NEXT SHIFT.
--- NOTE | 2019-10-06 19:31 | NUR ---
TELE/RN OPENING NOTES RECEIVED PATIENT IN BED, HOB ELEVATED , ON MECHANICAL VENT WITH PRESCRIBED SETTING. NON VERBAL BUT CAN OPEN EYES, LETHARGIC AND OBTUNDED. ON TELE ST . WITH EDEMA ON BLE. ON LOZADA DRAINING JEFFRY COLORED URINE, REQUIRE EXTENSIVE ASSISTANCE PATIENT IS BED BOUND WITH MULTIPLE WOUND IN SACRAL AREA AND LOWER EXTREMITIES. G-TUBE RUNNING , WITH NO RESIDUALS. MALATHI MIDLINE AND LEFT PICC LINE,WITH ANTIBIOTIC THERAPY. BED LOCKED. MONITORING FOR ANY CHANGES,
[2019-10-06] MEDS: MICAFUNGIN SODIUM 100 MG in IV NS 0.9% 100 ML IV SCH (19:51)
[2019-10-06] MEDS: INSULIN GLARGINE, 100 UNIT/ML CARTRIDGE SQ SCH (22:24)
[2019-10-07] VITALS (8 sets, daily range): BP systolic 133–172; BP diastolic 43–62
[2019-10-07] MEDS: IPRATROPIUM NEB FS 0.5 MG/2.5 ML AMPUL.NEB IH SCH ×3 (02:02→13:13)
[2019-10-07] MEDS: CLONIDINE HCL 0.1 MG TABLET GT PRN ×2 (04:18→11:24)
--- NOTE | 2019-10-07 04:58 | NUR ---
TELE/RN NOTES ELEVATED BLOOD PRESSURE OF 166/43. NEEDED CLONIDINE 0.1 MGVIA GTUBE.
[2019-10-07] MEDS: BLOOD SUGAR DIAGNOSTIC 1 EACH STRIP IN SCH ×2 (05:37→11:31)
[2019-10-07] MEDS: INSULIN REGULAR, HUMAN 100 UNIT/ML 3 ML VIAL SQ PRN ×2 (05:47→11:59)
--- NOTE | 2019-10-07 05:49 | NUR ---
PATIENT RECEIVED ON VENT SUPPORT WITH SETTINGS OF AC 16, 550 VT, 40%, +5. SUCTIONED FOR MINIMAL, THIN, WHITE SECRETIONS. GIVEN IN-LINE TREATMENTS WITH NO ADVERSE REACTIONS. AMBU BAG AT BEDSIDE. VENT AND PULSE OXIMETER ALARMS AUDIBLE AND VISIBLE. VENT PLUGGED INTO RED OUTLET. Addendum: 10/07/19 at 0550 by JENISE AVITIA RT Amended: Links added.
--- NOTE | 2019-10-07 06:31 | NUR ---
06- TELE/RN NOTES PATIENT ON CONTACT ISOLATION, OPENS EYES BUT OBTUNDED AND NON VERBAL, ON MECHANICAL VENT WITH PRESCRIBED SETTTING. PATIENT SKIN WARM TO TOUCH. REPOSITIONED FOR COMFORT. RESPIRATORY THERAPY PROVIDED. GTUBE CHECK FOR PATENCY AND RESIDUALS. IV ANTIBIOTIC THERAPY ADMINISTERD. WOUND CARE TREATMENT ORDERED. BED LOCKED, MONITORED.TO ENDORSE TO AM RN FOR LEONCIO.
[2019-10-07 06:47] LABS: BASOPHILS % (AUTO) 0.3 % (0.0-2.0); EOSINOPHILS % (AUTO) 3.9 % (0.0-6.0); HEMATOCRIT 25 % (39-51); HEMOGLOBIN 8.1 g/dL (13.5-17.5); LYMPHOCYTES # (AUTO) 1.4 /CMM (0.8-4.8); LYMPHOCYTES % (AUTO) 12.4 % (20.0-44.0); MEAN CORPUSCULAR HGB CONC 33 g/dl (31.0-36.0); MEAN CORPUSCULAR VOLUME 91 fL (80-96); MONOCYTES # (AUTO) 1.2 /CMM (0.1-1.30); MONOCYTES % (AUTO) 10.5 % (2.0-12.0); NEUTROPHILS % (AUTO) 72.9 % (43.0-81.0); PLATELET COUNT (AUTO) 485 /CMM (150-450); RED BLOOD CELL COUNT(AUTO) 2.74 MIL/uL (4.5-6.0); WHITE BLOOD COUNT (AUTO) 10.9 K/uL (4.3-11.0)
[2019-10-07 07:04] LABS: ALANINE AMINOTRANSFERASE 17 U/L (12-78); ALBUMIN 1.6 g/dL (3.4-5.0); ALKALINE PHOSPHATASE 121 U/L (46-116); ASPARTATE AMINOTRANSFERASE 23 U/L (15-37); BILIRUBIN,TOTAL 0.3 mg/dL (0.2-1.0); CALCIUM, SERUM 9.8 mg/dL (8.5-10.1); CARBON DIOXIDE 28 mmol/L (21-32); CHLORIDE 102 mmol/L (98-107); CREATININE 2.2 mg/dL (0.6-1.3); GLUCOSE 163 mg/dL (74-106); MAGNESIUM 2.3 mg/dL (1.8-2.4); PHOSPHORUS 4.9 mg/dL (2.5-4.9); POTASSIUM 4.7 mmol/L (3.5-5.1); SODIUM SERUM 140 mmol/L (136-145); TOTAL PROTEIN, SERUM 6.8 g/dL (6.4-8.2); UREA NITROGEN, BLOOD 70 mg/dL (7-18)
[2019-10-07] MEDS: LINEZOLID 600 MG TABLET PO SCH (09:39)
[2019-10-07] MEDS: FAMOTIDINE (20 MG) 20 MG TABLET GT SCH (09:39)
[2019-10-07] MEDS: MEROPENEM 1 G in IV NS 0.9% 100 ML IV SCH (09:40)
[2019-10-07] MEDS: PROSOURCE / PROSTAT (PYXIS) 30 ML UDC GT SCH (09:40)
[2019-10-07] MEDS: DAKINS QUARTER STRENGTH (0.125%) 480 ML BOTTLE TOP SCH (09:46)
[2019-10-07] MEDS: HYDROGEL DRESSING 90 GM TUBE TP SCH (09:47)
[2019-10-07] MEDS: SILVER SULFADIAZINE CREAM 25 GM TUBE TP SCH (09:47)
--- NOTE | 2019-10-07 10:27 | NUR ---
RN OPENING NOTE Received pt in bed. Hob elevated. Pt is obtunded. On a trach and vent. No signs of distress. GT in place and feeding running. No residual. Checked placement. No signs of pain or discomfort. Patient appears relaxed. Adams catheter in place draining clear devyn urine. Safety measures reinforced. Bed on lowest and locked position. Repositioned patient. Tolerated well. Will continue to monitor.
--- NOTE | 2019-10-07 17:06 | NUR ---
GEORGES RN CLOSING NOTE PT WAS PICKED UP BY [facility] IN STABLE CONDITION. GAVE REPORT TO MS. LAMAR EMT. PICKED UP BY 2 EMT AND 1 RT VIA [facility].
== END 2019-10-07 17:04 | DRG 853 ==
LOC: ER 22:56 → TELE-TD 09-23 00:33 → TELE1 09-24 11:48
PROVIDERS: ADMIT Student in an Organized Health Care Education/Training Program; ATTEND Nurse Practitioner Acute Care
PROC: 5A1955Z Respiratory Ventilation, Greater than 96 Consecutive Hours (ICD-10-PCS; principal; 2019-09-23)
PROC: 30233N1 Transfusion of Nonautologous Red Blood Cells into Peripheral Vein, Percutaneous Approach (ICD-10-PCS; 2019-09-24)
PROC: 0KBP0ZZ Excision of Left Hip Muscle, Open Approach (ICD-10-PCS; 2019-09-26)
PROC: 0KBN0ZZ Excision of Right Hip Muscle, Open Approach (ICD-10-PCS; 2019-09-26)
PROC: 0KBP0ZZ Excision of Left Hip Muscle, Open Approach (ICD-10-PCS; 2019-09-26)
PROC: 0KBN0ZZ Excision of Right Hip Muscle, Open Approach (ICD-10-PCS; 2019-09-26)
PROC: 0LBW0ZZ Excision of Left Foot Tendon, Open Approach (ICD-10-PCS; 2019-09-27)
PROC: 0LBV0ZZ Excision of Right Foot Tendon, Open Approach (ICD-10-PCS; 2019-09-27)
PROC: 05HY33Z Insertion of Infusion Device into Upper Vein, Percutaneous Approach (ICD-10-PCS; 2019-10-04)
PROC: 05H533Z Insertion of Infusion Device into Right Subclavian Vein, Percutaneous Approach (ICD-10-PCS; 2019-10-04)
PROC: B546ZZA Ultrasonography of Right Subclavian Vein, Guidance (ICD-10-PCS; 2019-10-04)
DX: A41.9 Sepsis, unspecified organism (principal); L89.324 Pressure ulcer of left buttock, stage 4; L89.314 Pressure ulcer of right buttock, stage 4; L89.154 Pressure ulcer of sacral region, stage 4; J18.9 Pneumonia, unspecified organism; E43 Unspecified severe protein-calorie malnutrition; I21.A1 Myocardial infarction type 2; N17.0 Acute kidney failure with tubular necrosis; R53.2 Functional quadriplegia; J96.21 Acute and chronic respiratory failure with hypoxia; K72.00 Acute and subacute hepatic failure without coma; G93.1 Anoxic brain damage, not elsewhere classified; I47.1 Supraventricular tachycardia; J95.851 Ventilator associated pneumonia; B37.49 Other urogenital candidiasis; E87.2 Acidosis; Z99.11 Dependence on respirator [ventilator] status; R64 Cachexia; L97.419 Non-pressure chronic ulcer of right heel and midfoot with unspecified severity; L97.329 Non-pressure chronic ulcer of left ankle with unspecified severity; D68.69 Other thrombophilia; Z16.342 Resistance to multiple antimycobacterial drugs; M46.28 Osteomyelitis of vertebra, sacral and sacrococcygeal region; I13.0 Hypertensive heart and chronic kidney disease with heart failure and stage 1 through stage 4 chronic kidney disease, or unspecified chronic kidney disease; E11.9 Type 2 diabetes mellitus without complications; I50.9 Heart failure, unspecified; E11.65 Type 2 diabetes mellitus with hyperglycemia; E11.621 Type 2 diabetes mellitus with foot ulcer; E86.0 Dehydration; D63.8 Anemia in other chronic diseases classified elsewhere; E87.6 Hypokalemia; K29.70 Gastritis, unspecified, without bleeding; M20.42 Other hammer toe(s) (acquired), left foot; M20.41 Other hammer toe(s) (acquired), right foot; R65.20 Severe sepsis without septic shock; R13.10 Dysphagia, unspecified; Z93.1 Gastrostomy status; Z93.0 Tracheostomy status; Z79.01 Long term (current) use of anticoagulants; Z66 Do not resuscitate; D47.3 Essential (hemorrhagic) thrombocythemia; E11.51 Type 2 diabetes mellitus with diabetic peripheral angiopathy without gangrene; Z86.74 Personal history of sudden cardiac arrest; N40.0 Benign prostatic hyperplasia without lower urinary tract symptoms; Z74.01 Bed confinement status; E88.09 Other disorders of plasma-protein metabolism, not elsewhere classified; R74.0 Nonspecific elevation of levels of transaminase and lactic acid dehydrogenase [LDH]; L97.529 Non-pressure chronic ulcer of other part of left foot with unspecified severity; B96.1 Klebsiella pneumoniae [K. pneumoniae] as the cause of diseases classified elsewhere; B95.2 Enterococcus as the cause of diseases classified elsewhere; E11.69 Type 2 diabetes mellitus with other specified complication; M62.50 Muscle wasting and atrophy, not elsewhere classified, unspecified site; E11.22 Type 2 diabetes mellitus with diabetic chronic kidney disease; N18.9 Chronic kidney disease, unspecified; Y84.8 Other medical procedures as the cause of abnormal reaction of the patient, or of later complication, without mention of misadventure at the time of the procedure
CPT/HCPCS: 31720; 36415; 36569; 36600; 71045-TC; 72192-TC; 80048-TC; 80053-TC; 80061-TC; 80076-TC; 80202-TC; 81000-TC; 82272-TC; 82550-TC; 82570-TC; 82728-TC; 82803-TC; 82962-TC; 83540-TC; 83605-TC; 83735-TC; 83880; 84100-TC; 84155-TC; 84300-TC; 84439-TC; 84443-TC; 84484-TC; 85025-TC; 85730-TC; 86850-TC; 86921-TC; 87040-TC; 87070-TC; 87081-TC; 87086-TC; 87186-TC; 93307-TC; 94003-TC; 94760-TC; 94762-TC; 94799-TC; 99082-TC; A4216; A4217; A4623; A6248; A6253; A6403; A7526; C1751; C9113; G0378; J0153; J0770; J1815; J1940; J2020; J2185; J2248; J2405; J2543; J2916; J3370; J3475; J3490; J7030; J7040; J7050; J7060; P9016-BL; P9047